=== PATIENT | male | born 1985 | race Caucasian/White ===

== ENCOUNTER 2019-02-21 10:59 | Emergency (ER) | payer MEDICARE ==
[~2019-02-21] VITALS: Ht 165.1 cm; Wt 62.8 kg
[~2019-02-21 10:59] MED LIST: ALPR.5T PO; CARV12.5 PO; CTLP20T PO; Sensipar PO; [UNRECOGNIZED DRUG - OTHER] PO
--- OUTSIDE RECORDS SUMMARY | 2019-02-21 11:05 | XMS REPORT | Continuity of Care Document ---
Author Author [facility] Organization [facility] Address Unknown Phone Unavailable Care Team Providers Care Medical Dosimetrist Name Role Phone NO, LOCAL PHYSICIAN PP Unavailable Insurance Providers Payer Name Policy Number Subscriber Name Relationship Unknown Shawn Palomino Advance Directives Directive Response Recorded Date Advance Directives N 08/02/13 6:59am Health Care Power of Actuarial Intern N 08/02/13 6:59am Organ Donor N 08/02/13 6:59am Problems No Known Problems or Medical conditions. Social History History Response Recorded Date/Time Alcohol Use Past History 08/02/13 6:59am Recreational Drug Use N denies 08/02/13 6 :59am Allergies, Adverse Reactions, Alerts Allergen Type Severity Reaction Last Updated Thymoglobulin Adverse Reaction Severe low B/P and bradycardia 08/02/13 Medications Medication Dose Units Route Sig Qty Days Alprazolam (Xanax) 1 Tab PO TID PRN Citalopram Hydrobromide (Celexa) 1 Each PO DAILY [Sensipar] 30 Mg PO DAILY [Phosio] 4 Tab PO AC Carvedilol (Coreg Tablet) 12.5 Mg PO BID Response Recorded Date/Time Status not known Unknown Results No Known Relevant Diagnostic Tests, Laboratory Data and/or Discharge Summary. Encounters Encounter Location Date/Time Registered Emergency Room [facility] 08/02/13 7:10am
--- OUTSIDE RECORDS SUMMARY | 2019-02-21 11:05 | XMS REPORT | Continuity of Care Document ---
Author Organization Unknown Address Unknown Allergies There is no data. Medications There is no data. Problems There is no data. Procedures There is no data. Results There is no data. Encounters ACCT No. Visit Date/Time Discharge Status Pt. Type Provider Facility Loc./Unit Complaint [id number] 02/20/2019 13:40:00 ACT Outpatient [facility] [id number] 08/02/2013 07:10:00 08/02/2013 10:26:00 DIS Emergency
[2019-02-21] MEDS ORDERED: fentaNYL INJECTION 100 MCG/2 ML AMP IM STA (11:36)
[2019-02-21] MEDS ORDERED: cefTRIAXone 1,000 MG/2.86 ml vial (IM ONLY) IM ONE (11:45)
[2019-02-21] MEDS ORDERED: LIDOCAINE 1% INJ 20 ML 20 ML VIAL INJ ONE (11:45)
--- NOTE | 2019-02-21 12:01 | ED Integumentary General ---
General Chief Complaint: Skin/Wound Problems Stated Complaint: LT FOOT WOUND CHECK Nursing Triage Note: Got a tattoo on left foot last . Started having pain in foot on Monday and has worsened since then and thinks it is infected. Tattoo covers the dorsal foot and the toes. Ink is black and there is some surrounding redness to the tattoo. States he is taking percocets for pain and is not getting pain relief. Source: patient Exam Limitations: no limitations History of Present Illness Date Seen by Provider: Feb 21, 2019 Time Seen by Provider: 11:35 Initial Comments 33-year-old male presents with left foot pain. Patient reports that 6 days ago he got a tattoo on the top of his left foot. Reports that 2 days ago he started having pain in it and has noticed some swelling and redness. Patient thinks it might be infected. Patient is a dialysis patient and is scheduled to have repair on his dialysis shunt tomorrow. He reports he takes Percocet for pain but this is not helping. He denies any fever, chills or other systemic complaints at this time. Allergies and Home Medications Allergies Coded Allergies: sulfamethoxazole (Verified Allergy, Unknown, 02/21/19) trimethoprim (Verified Allergy, Unknown, 02/21/19) Uncoded Allergies: CLEAR EYES (Allergy, Unknown, eye burning, 02/21/19) Thymoglobulin (Adverse Reaction, Severe, low B/P and bradycardia, 08/02/13) Home Medications Alprazolam 0.5 Mg Tablet, 1 TAB PO TID PRN, (Reported) Carvedilol 12.5 Mg Tablet, 12.5 MG PO BID, (Reported) Cephalexin 500 Mg Tablet, 500 MG PO QID Prescribed by: DREW TYLER on 02/21/19 1327 Citalopram Hydrobromide 20 Mg Tablet, 1 EACH PO DAILY, (Reported) [Phosio] , 4 TAB PO AC, (Reported) [Sensipar] , 30 MG PO DAILY, (Reported) Patient Home Medication List Home Medication List Reviewed: Yes Review of Systems Review of Systems Constitutional: No chills, No fever EENTM: no symptoms reported Respiratory: no symptoms reported Cardiovascular: no symptoms reported Gastrointestinal: no symptoms reported Musculoskeletal: no symptoms reported Skin: see HPI Past Rstxpes-Gkuuup-Vtlaqj Hx Past Med/Social Hx: Reviewed Nursing Past Med/Soc Hx Patient Social History Recent Foreign Travel: No Contact w/Someone Who Travel: No Recent Infectious Disease Expo: No Past Medical History Renal Failure, Dialysis Parathyroid Disease Anxiety Physical Exam Vital Signs Vital Signs - First Documented 02/21/19 11:38 Temp 98.1 Pulse 104 Resp 16 B/P (MAP) 71/37 (48) Pulse Ox 92 Capillary Refill : Less Than 3 Seconds General Appearance: WD/WN, no apparent distress Cardiovascular: normal peripheral pulses, regular rate, rhythm Respiratory: chest non-tender, lungs clear Extremities: swelling (Left foot) Skin: other (Patient with a recent tattoo on his left foot. The tattoo is black and very difficult to see much skin over the left foot. There is some surrounding erythema around the tattoo. The foot does seem mildly swollen and is tender to palpation. Very limited exam based on the nature of the tattoo along with the recent tattoo skin changes.) Progress/Results/Core Measures Results/Orders Lab Results Laboratory Tests Test 02/21/19 12:10 Range/Units White Blood Count 9.5 4.3-11.0 10^3/uL Red Blood Count 4.08 L 4.35-5.85 10^6/uL Hemoglobin 14.2 13.3-17.7 G/DL Hematocrit 44 40-54 % Mean Corpuscular Volume 107 H 80-99 FL Mean Corpuscular Hemoglobin 35 H 25-34 PG Mean Corpuscular Hemoglobin Concent 32 32-36 G/DL Red Cell Distribution Width 16.1 H 10.0-14.5 % Platelet Count 149 130-400 10^3/uL Mean Platelet Volume 11.3 H 7.4-10.4 FL Neutrophils (%) (Auto) 81 H 42-75 % Lymphocytes (%) (Auto) 8 L 12-44 % Monocytes (%) (Auto) 9 0-12 % Eosinophils (%) (Auto) 1 0-10 % Basophils (%) (Auto) 0 0-10 % Neutrophils # (Auto) 7.7 1.8-7.8 X 10^3 Lymphocytes # (Auto) 0.8 L 1.0-4.0 X 10^3 Monocytes # (Auto) 0.9 0.0-1.0 X 10^3 Eosinophils # (Auto) 0.1 0.0-0.3 10^3/uL Basophils # (Auto) 0.0 0.0-0.1 10^3/uL Neutrophils % (Manual) 75 % Lymphocytes % (Manual) 11 % Monocytes % (Manual) 8 % Eosinophils % (Manual) 1 % Basophils % (Manual) 0 % Band Neutrophils 5 % Nucleated Red Blood Cells 1 Sodium Level 135 135-145 MMOL/L Potassium Level 5.1 H 3.6-5.0 MMOL/L Chloride Level 84 L 98-107 MMOL/L Carbon Dioxide Level 26 21-32 MMOL/L Anion Gap 25 H 5-14 MMOL/L Blood Urea Nitrogen 55 H 7-18 MG/DL Creatinine 12.60 H 0.60-1.30 MG/DL Estimat Glomerular Filtration Rate 5 BUN/Creatinine Ratio 4 Glucose Level 92 70-105 MG/DL Calcium Level 9.6 8.5-10.1 MG/DL My Orders Orders - TYLER,DREW L DO Basic Metabolic Panel (02/21/19 11:36) Cbc With Automated Diff (02/21/19 11:36) Blood Culture (02/21/19 11:36) Fentanyl Injection (Sublimaze Injection (02/21/19 11:36) Ceftriaxone For Im Use (Rocephin For Im (02/21/19 11:45) Lidocaine 1% Inj 20 Ml (Xylocaine 1% Inj (02/21/19 11:45) Foot 2 View Left (02/21/19 11:36) Manual Differential (02/21/19 12:10) Medications Given in ED Current Medications Medications Dose Ordered Sig/Ghada Route Start Time Stop Time Status Last Admin Dose Admin Ceftriaxone Sodium 1,000 mg ONCE ONCE IM 02/21/19 11:45 02/21/19 11:46 DC 02/21/19 13:01 1,000 MG Lidocaine HCl 2.1 ml ONCE ONCE INJ 02/21/19 11:45 02/21/19 11:46 DC 02/21/19 13:02 2.1 ML Vital Signs/I&O 02/21/19 02/21/19 11:38 13:46 Temp 98.1 Pulse 104 77 Resp 16 16 B/P (MAP) 71/37 (48) 75/37 (50) Pulse Ox 92 96 Blood Pressure Mean: 48 Progress Progress Note : Time: 13:25 Progress Note Review labs and x-ray with patient. Patient's creatinine is elevated but he is a dialysis patient and due for dialysis. He has a negative x-ray and negative white count. We will start him on Keflex outpatient. He should follow-up with his primary care physician for cellulitis. He should return if symptoms worsen. Departure Impression Primary Impression: Cellulitis Qualified Codes: L03.116 - Cellulitis of left lower limb Disposition: HOME, SELF-CARE Condition: Stable Departure-Patient Inst. Referrals: GABRIELA BOGGS MD (PCP/Family) Primary Care Physician Patient Instructions: Cellulitis (Skin Infection), Adult (DC) Scripts Cephalexin (Cephalexin) 500 Mg Tablet 500 MG PO QID for 10 Days, #20 TAB 0 Refills Prov: DREW TYLER DO 02/21/19 DREW TYLER DO Feb 21, 2019 12:00
[2019-02-21 12:25] LABS: HEMATOCRIT 44 % (40-54); HEMOGLOBIN 14.2 G/DL (13.3-17.7); MEAN CORPUSCULAR HEMOGLOBIN 35 PG (25-34); MEAN CORPUSCULAR VOLUME 107 FL (80-99); WHITE BLOOD COUNT 9.5 10^3/uL (4.3-11.0)
[2019-02-21 12:26] LABS: BASOPHILS % (AUTO) 0 % (0-10); EOSINOPHILS % (AUTO) 1 % (0-10); LYMPHOCYTES # (AUTO) 0.8 X 10^3 (1.0-4.0); LYMPHOCYTES % (AUTO) 8 % (12-44); MEAN CORPUSCULAR HGB CONC 32 G/DL (32-36); MEAN PLATELET VOLUME 11.3 FL (7.4-10.4); MONOCYTES # (AUTO) 0.9 X 10^3 (0.0-1.0); MONOCYTES % (AUTO) 9 % (0-12); NEUTROPHILS # (AUTO) 7.7 X 10^3 (1.8-7.8); NEUTROPHILS % (AUTO) 81 % (42-75); PLATELET COUNT 149 10^3/uL (130-400); RED CELL DISTRIBUTION WIDTH 16.1 % (10.0-14.5)
[2019-02-21 12:27] LABS: EOSINOPHILS # (AUTO) 0.1 10^3/uL (0.0-0.3)
--- NOTE | 2019-02-21 12:55 | Diagnostic Imaging Report ---
Indication: Infection. 2 views of the left foot were obtained. Findings: The alignment is normal. There is no fracture or dislocation. Soft tissues are unremarkable. There are extensive vascular calcifications for a patient of this age. There is no radiographic evidence of osteomyelitis. Impression: Extensive vascular calcifications for a patient of this age otherwise unremarkable. Dictated by: Dictated on workstation # [id number]
[2019-02-21 13:03] LABS: POTASSIUM 5.1 MMOL/L (3.6-5.0)
[2019-02-21 13:04] LABS: CALCIUM 9.6 MG/DL (8.5-10.1); CREATININE SERUM 12.6 MG/DL (0.60-1.30)
[2019-02-21] MEDS ORDERED: CEPH500T PO (13:27)
[2019-02-21 13:46] VITALS: BP 75/37
[2019-02-21 14:07] LABS: BAND NEUTROPHILS 5 %; BASOPHILS % (MANUAL) 0 %; EOSINOPHILS % (MANUAL) 1 %; LYMPHOCYTES % (MANUAL) 11 %; MONOCYTES % (MANUAL) 8 %; NEUTROPHILS % (MANUAL) 75 %; NUCLEATED RED BLOOD CELLS 1
== END 2019-02-21 13:48 | disposition home or self-care (01) ==
LOC: EDUNIT# 10:59 → ER FS 11:01
DX: L03.116 Cellulitis of left lower limb (principal); N18.6 End stage renal disease; F41.9 Anxiety disorder, unspecified; Z99.2 Dependence on renal dialysis; Z88.2 Allergy status to sulfonamides; Z88.8 Allergy status to other drugs, medicaments and biological substances
CPT/HCPCS: 36415; 73620; 80048; 85007; 85027; 87040

== ENCOUNTER 2019-02-22 16:45 | Emergency (ER) | payer MEDICARE ==
[~2019-02-22] VITALS: Ht 165.1 cm; Wt 69.9 kg
[~2019-02-22 16:45] MED LIST changes: +CEPH500T PO
--- OUTSIDE RECORDS SUMMARY | 2019-02-22 16:51 | XMS REPORT | Continuity of Care Document ---
Author Organization Unknown Address Unknown Allergies Active Description Code Type Severity Reaction Onset Reported/Identified Relationship to Patient Clinical Status Yes Thymoglobulin Thymoglobulin Severe low B/P and bra 08/02/2013 Yes CLEAR EYES CLEAR EYES Unknown eye burning 02/21/2019 Yes sulfamethoxazole [id number] Drug Allergy Unknown N/A 02/21/2019 Yes trimethoprim [id number] Drug Allergy Unknown N/A 02/21/2019 Medications There is no data. Problems There is no data. Procedures There is no data. Results Test Result Range Complete blood count (CBC) with automated white blood cell (WBC) differential - 02/21/19 12:10 Blood leukocytes automated count (number/volume) 9.5 10*3/uL 4.3-11.0 Blood erythrocytes automated count (number/volume) 4.08 10*6/uL 4.35-5.85 Venous blood hemoglobin measurement (mass/volume) 14.2 g/dL 13.3-17.7 Blood hematocrit (volume fraction) 44 % 40-54 Automated erythrocyte mean corpuscular volume 107 [foz_us] 80-99 Automated erythrocyte mean corpuscular hemoglobin (mass per erythrocyte) 35 pg 25-34 Automated erythrocyte mean corpuscular hemoglobin concentration measurement ( mass/volume) 32 g/dL 32-36 Automated erythrocyte distribution width ratio 16.1 % 10.0-14.5 Automated blood platelet count (count/volume) 149 10*3/uL 130-400 Automated blood platelet mean volume measurement 11.3 [foz_us] 7.4-10.4 Automated blood neutrophils/100 leukocytes 81 % 42-75 Automated blood lymphocytes/100 leukocytes 8 % 12-44 Blood monocytes/100 leukocytes 9 % 0-12 Automated blood eosinophils/100 leukocytes 1 % 0-10 Automated blood basophils/100 leukocytes 0 % 0-10 Blood neutrophils automated count (number/volume) 7.7 10*3 1.8-7.8 Blood lymphocytes automated count (number/volume) 0.8 10*3 1.0-4.0 Blood monocytes automated count (number/volume) 0.9 10*3 0.0-1.0 Automated eosinophil count 0.1 10*3/uL 0.0-0.3 Automated blood basophil count (count/volume) 0.0 10*3/uL 0.0-0.1 Whole blood basic metabolic panel - 02/21/19 12:10 Serum or plasma sodium measurement (moles/volume) 135 mmol/L 135-145 Serum or plasma potassium measurement (moles/volume) 5.1 mmol/L 3.6-5.0 Serum or plasma chloride measurement (moles/volume) 84 mmol/L 98-107 Carbon dioxide 26 mmol/L 21-32 Serum or plasma anion gap determination (moles/volume) 25 mmol/L 5-14 Serum or plasma urea nitrogen measurement (mass/volume) 55 mg/dL 7-18 Serum or plasma creatinine measurement (mass/volume) 12.60 mg/dL 0.60-1.30 Serum or plasma urea nitrogen/creatinine mass ratio 4 NRG Serum or plasma creatinine measurement with calculation of estimated glomerular filtration rate 5 NRG Serum or plasma glucose measurement (mass/volume) 92 mg/dL 70-105 Serum or plasma calcium measurement (mass/volume) 9.6 mg/dL 8.5-10.1 Blood manual differential performed detection - 02/21/19 12:10 Blood monocytes/100 leukocytes 8 % NRG Manual blood segmented neutrophils/100 leukocytes 75 % NRG Blood band neutrophils/100 leukocytes 5 % NRG Manual blood lymphocytes/100 leukocytes 11 % NRG Manual eosinophils/100 leukocytes in nose 1 % NRG Manual blood basophils/100 leukocytes 0 % NRG Manual blood nucleated erythrocytes/100 leukocytes ratio 1 NRG Bacterial blood culture - 02/21/19 12:10 Bacterial blood culture NG NRG Bacterial blood culture - 02/21/19 12:58 Bacterial blood culture NG NRG Encounters ACCT No. Visit Date/Time Discharge Status Pt. Type Provider Facility Loc./Unit Complaint [id number] 02/20/2019 13:40:00 ACT Outpatient [facility] [id number] 02/21/2019 11:01:00 02/21/2019 13:48:00 DIS Emergency DREW TYLER DO [facility] ER FS LT FOOT WOUND CHECK [id number] 08/02/2013 07:10:00 08/02/2013 10:26:00 DIS Emergency [id number] 02/22/2019 16:46:00 ACT Emergency REJI MAYER DO [facility] ER FS HYPOTENSION
--- NOTE | 2019-02-22 17:07 | ED Syncope ---
General Chief Complaint: Cardiac/General Problems Stated Complaint: HYPOTENSION Source of Information: Patient, EMS, Old Records, RN Notes Reviewed Exam Limitations: No Limitations (REJI DICKINSON DO) History of Present Illness Date Seen by Provider: Feb 22, 2019 Time Seen by Provider: 16:57 Initial Comments Patient brought in by EMS from local dialysis center p/ experience an apparent syncopal episode. Reportedly couldn't wake him up after being dialyzed. Noted to be hypotensive which apparently isn't new for him. Came to shortly p/ EMS arrival. Reportedly feels back to baseline. Apparently had less than a liter of fluid removed. Does have an infected tattoo on the dorsum of his left foot that he has taken 3 doses of Keflex for. States he was going to go to the ED in [place] p/ dialysis for evaluation of his tattoo infection. Timing/Prior Episodes: Single Episode Today Symptoms Prior to Episode: Unknown Precipitating Factors: Sitting Loss of Consciousness: Brief (Seconds) Current Symptoms: Back to Normal (REJI DICKINSON DO) Allergies and Home Medications Allergies Coded Allergies: sulfamethoxazole (Verified Allergy, Unknown, 02/21/19) trimethoprim (Verified Allergy, Unknown, 02/21/19) Uncoded Allergies: CLEAR EYES (Allergy, Unknown, eye burning, 02/21/19) Thymoglobulin (Adverse Reaction, Severe, low B/P and bradycardia, 08/02/13) Home Medications Alprazolam 0.5 Mg Tablet, 1 TAB PO TID PRN, (Reported) Carvedilol 12.5 Mg Tablet, 12.5 MG PO BID, (Reported) Cephalexin 500 Mg Tablet, 500 MG PO QID Prescribed by: DREW TYLER on 02/21/19 1327 Citalopram Hydrobromide 20 Mg Tablet, 1 EACH PO DAILY, (Reported) [Phosio] , 4 TAB PO AC, (Reported) [Sensipar] , 30 MG PO DAILY, (Reported) Patient Home Medication List Home Medication List Reviewed: Yes (MELVINA VALENCIA MD) Review of Systems Constitutional: see HPI Cardiovascular: see HPI, syncope Skin: see HPI, other (cellulitis left foot.) (REJI DICKINSON DO) All Other Systems Reviewed Negative Unless Noted: Yes (REJI DICKINSON DO) Past Erwvhfo-Afydna-Xfvqny Hx Patient Social History Former Smoker, Quit: Feb 11, 2011 2nd Hand Smoke Exposure: No Recent Foreign Travel: No Contact w/Someone Who Travel: No (REJI DICKINSON DO) Past Medical History Surgeries: Yes (Kidney Transplant removed after anti-rejection meds stopped) Respiratory: No Cardiac: Yes (Anemia of chronic dz) Neurological: No Renal Failure, Dialysis Gastrointestinal: No Musculoskeletal: No Endocrine: Yes Parathyroid Disease Cancer: No Psychosocial: Yes Anxiety Integumentary: No Blood Disorders: Yes (anemia of chronic disease) (REJI DICKINSON DO) Physical Exam Vital Signs Vital Signs - First Documented 02/22/19 17:00 Temp 96.9 Pulse 91 Resp 14 B/P (MAP) 80/36 (51) Pulse Ox 99 O2 Delivery Room Air (MELVINA VALENCIA MD) Vital Signs Capillary Refill : (REJI DICKINSON DO) Height, Weight, BMI Height: 5'5.00" Weight: 138lbs. 6.0oz. 62.453231xs; BMI Method:Stated General Appearance: No Apparent Distress, WD/WN, Thin HEENT: Normal ENT Inspection Cardiovascular: Regular Rate, Rhythm Respiratory: No Respiratory Distress Extremities: Inflammation (& erythema over dorsum of left foot c/w cellulitis over a new tattoo) Neurologic/Psychiatric: Alert, Oriented x3, No Motor/Sensory Deficits, Depressed Affect Cranial Nerves: Normal Speech Motor/Sensory: No Motor Deficit, No Sensory Deficit (REJI DICKINSON DO) Progress/Results/Core Measures Results/Orders Lab Results Laboratory Tests Test 02/22/19 17:18 Range/Units White Blood Count 6.1 4.3-11.0 10^3/uL Red Blood Count 3.71 L 4.35-5.85 10^6/uL Hemoglobin 13.1 L 13.3-17.7 G/DL Hematocrit 41 40-54 % Mean Corpuscular Volume 110 H 80-99 FL Mean Corpuscular Hemoglobin 35 H 25-34 PG Mean Corpuscular Hemoglobin Concent 32 32-36 G/DL Red Cell Distribution Width 16.0 H 10.0-14.5 % Platelet Count 153 130-400 10^3/uL Mean Platelet Volume 11.0 H 7.4-10.4 FL Neutrophils (%) (Auto) 90 H 42-75 % Lymphocytes (%) (Auto) 6 L 12-44 % Monocytes (%) (Auto) 3 0-12 % Eosinophils (%) (Auto) 1 0-10 % Basophils (%) (Auto) 0 0-10 % Neutrophils # (Auto) 5.5 1.8-7.8 X 10^3 Lymphocytes # (Auto) 0.4 L 1.0-4.0 X 10^3 Monocytes # (Auto) 0.2 0.0-1.0 X 10^3 Eosinophils # (Auto) 0.0 0.0-0.3 10^3/uL Basophils # (Auto) 0.0 0.0-0.1 10^3/uL Neutrophils % (Manual) 91 % Lymphocytes % (Manual) 3 % Monocytes % (Manual) 2 % Eosinophils % (Manual) 1 % Basophils % (Manual) 1 % Band Neutrophils 2 % Macrocytosis MARKED Blood Morphology Comment Sodium Level 135 135-145 MMOL/L Potassium Level 4.9 3.6-5.0 MMOL/L Chloride Level 89 L 98-107 MMOL/L Carbon Dioxide Level 19 L 21-32 MMOL/L Anion Gap 27 H 5-14 MMOL/L Blood Urea Nitrogen 55 H 7-18 MG/DL Creatinine 12.12 #H 0.60-1.30 MG/DL Estimat Glomerular Filtration Rate 5 BUN/Creatinine Ratio 5 Glucose Level 84 70-105 MG/DL Calcium Level 8.7 8.5-10.1 MG/DL Corrected Calcium 8.7 8.5-10.1 MG/DL Magnesium Level 2.8 H 1.8-2.4 MG/DL Total Bilirubin 0.4 0.1-1.0 MG/DL Aspartate Amino Transf (AST/SGOT) 20 5-34 U/L Alanine Aminotransferase (ALT/SGPT) 11 0-55 U/L Alkaline Phosphatase 98 40-136 U/L Troponin T 34 H <=15 NG/L Total Protein 7.4 6.4-8.2 GM/DL Albumin 4.0 3.2-4.5 GM/DL (MELVINA VALENCIA MD) My Orders Orders - MELVINA VALENCIA MD Hs C Reactive Protein (02/22/19 17:18) Fentanyl Injection (Sublimaze Injection (02/22/19 19:15) Aspirin Chewable Tablet (Baby Aspirin Ch (02/22/19 19:15) (MELVINA VALENCIA MD) Medications Given in ED Current Medications Medications Dose Ordered Sig/Ghada Route Start Time Stop Time Status Last Admin Dose Admin Aspirin 324 mg ONCE ONCE PO 02/22/19 19:15 02/22/19 19:16 DC 02/22/19 19:11 324 MG Fentanyl Citrate 25 mcg ONCE ONCE IVP 02/22/19 19:15 02/22/19 19:16 DC 02/22/19 19:11 25 MCG (MELVINA VALENCIA MD) Vital Signs/I&O 02/22/19 02/22/19 02/22/19 17:00 18:45 20:26 Temp 96.9 Pulse 91 80 Resp 14 18 B/P (MAP) 80/36 (51) 88/51 (63) 85/26 (45) Pulse Ox 99 98 O2 Delivery Room Air Room Air (MELVINA VALENCIA MD) Progress Progress Note #1: Time: 18:00 Progress Note I assumed care from Dr. Dickinson at shift change. With pt pressure up to his baseline of 86-90 systolic and only having a partial dialysis today will hold his fluid bolus at 250 mL. His WBC is normal but he does have a left shift. Chemistry is still pending. CXR is clear and read out as no acute process or infiltrate or effusion. Also since he had been stuck several times for blood and unable to draw lactic acid he had requested to wait on this rather than continued to get stuck more. With no fever and already being on antibiotics and responding to fluids to his baseline BP as well as no elevation of WBC will hold on continued attempts to draw blood for Lactic acid. Progress Note #2: Time: 18:40 Progress Note Patient updated about test result and that his Troponin T is elevated above normal which can go along with his renal failure. His WBC count is stable with a left shift consistent with his cellulitis to top of left foot from his recent tattoo that is 7 days old. He had Rocephin 1 gm yesterday and 3 doses of Cephalexin 500 mg since then. He has chronic renal failure with Cr of 12.2 and was unable to dialyze today due to his shunt clotting off again and being hypotensive. The 800 mL they took off they had to give back to him because of his hypotension to 70 systolic. Based on all of these things and the recommendation of his [employer] from dialysis unit to go to [facility], where he has previously been admitted, I will call to see if they have a bed and capability to take the patient. I left a message at [phone] on the nurse transfer line for [facility]. Pt did ask for something for pain in his foot so I agreed to give him a low dose of Fentanyl 25 mcg and to elevate his foot since he had his pressure up to his baseline of 88/35 Progress Note #3: Time: 19:17 Progress Note I called back to [facility] and reached nursing chemical plant operator supervisor, Eliana, and gave information for the patient to be able to reach the hospitalist. She stated she would have Melva Richi call me back and if she accepts the patient then they will arrange for transfer and a room. Progress Note #4: Time: 19:55 Progress Note Provider Melva Stoddard called back and accepted the patient for transfer for the cellulitis and hypotension. She will have the nurse chemical plant operator supervisor call with a room. (MELVINA VALENCIA MD) EKG : EKG Time: 17:40 Rate: 75 Rhythm: Normal Sinus Intervals: Normal ECG Comparisson: No Previous ECG Available ECG Impression: Normal (REJI DICKINSON DO) Diagnostic Imaging Diagonstic Imaging: Xray Plain Films/CT/US/NM/MRI: chest (nothing acute) (REJI DICKINSON DO) Comments NAME: TOBY PALOMINO [facility] REC#: [id number] PT STATUS: REG ER : 1985 PHYSICIAN: REJI DICKINSON DO ADMIT DATE: 02/22/19/ER FS Signed Date of Exam:02/22/19 CHEST 1 VIEW AP/PA ONLY INDICATION: Lethargic. COMPARISON: None. FINDINGS: Single view of the chest demonstrates clear lungs bilaterally. The heart is normal. There is no pneumothorax. Osseous structures are normal. IMPRESSION: Negative chest. Dictated by: Dictated on workstation # [id number] Dict: 02/22/191733 Trans: 02/22/191739 [id number] Interpreted by: MELI HERRERA Electronically signed by: MELI HERRERA 02/22/191739 Reviewed: Reviewed by Me (reviewed radiology report as well) (MELVINA VALENCIA MD) Departure Impression Primary Impression: Cellulitis of left foot Additional Impressions: Hypotension Qualified Codes: I95.3 - Hypotension of hemodialysis Troponin level elevated Chronic in-center hemodialysis status Disposition: 02 XFER SHT-TRM HOSP Condition: Stable Transfer Time Spoke to Accepting Phy: 19:55 Transfer Progress Notes 1954 I spoke with OC Stoddard at [facility] and she accepted the patient for transfer to manage his cellulitis and hypotension. He will likely need nephrology and surgery to help with his shunt and dialysis as well. Transfer Facility: [facility] Method of Transfer: EMS (MELVINA VALENCIA MD) Departure-Patient Inst. Referrals: GABRIELA BOGGS MD (PCP/Family) Primary Care Physician REJI DICKINSON DO Feb 22, 2019 17:07 MELVINA VALENCIA MD Feb 22, 2019 18:12
[2019-02-22] MEDS ORDERED: LACTATED RINGERS 1,000 ML IV SCH (17:15)
[2019-02-22 17:26] LABS: EOSINOPHILS % (AUTO) 1 % (0-10); HEMATOCRIT 41 % (40-54); HEMOGLOBIN 13.1 G/DL (13.3-17.7); LYMPHOCYTES % (AUTO) 6 % (12-44); MEAN CORPUSCULAR HEMOGLOBIN 35 PG (25-34); MEAN CORPUSCULAR HGB CONC 32 G/DL (32-36); MEAN CORPUSCULAR VOLUME 110 FL (80-99); MONOCYTES % (AUTO) 3 % (0-12); NEUTROPHILS % (AUTO) 90 % (42-75); PLATELET COUNT 153 10^3/uL (130-400); WHITE BLOOD COUNT 6.1 10^3/uL (4.3-11.0)
[2019-02-22 17:27] LABS: BASOPHILS % (AUTO) 0 % (0-10); LYMPHOCYTES # (AUTO) 0.4 X 10^3 (1.0-4.0); MONOCYTES # (AUTO) 0.2 X 10^3 (0.0-1.0); NEUTROPHILS # (AUTO) 5.5 X 10^3 (1.8-7.8)
--- NOTE | 2019-02-22 17:36 | Diagnostic Imaging Report ---
INDICATION: Lethargic. COMPARISON: None. FINDINGS: Single view of the chest demonstrates clear lungs bilaterally. The heart is normal. There is no pneumothorax. Osseous structures are normal. IMPRESSION: Negative chest. Dictated by: Dictated on workstation # [id number]
[2019-02-22 17:43] LABS: BAND NEUTROPHILS 2 %; BASOPHILS % (MANUAL) 1 %; EOSINOPHILS % (MANUAL) 1 %; LYMPHOCYTES % (MANUAL) 3 %; MONOCYTES % (MANUAL) 2 %; NEUTROPHILS % (MANUAL) 91 %
[2019-02-22 18:43] LABS: CALCIUM 8.7 MG/DL (8.5-10.1); CREATININE SERUM 12.12 MG/DL (0.60-1.30); POTASSIUM 4.9 MMOL/L (3.6-5.0)
[2019-02-22 18:44] LABS: BILIRUBIN,TOTAL 0.4 MG/DL (0.1-1.0); MAGNESIUM 2.8 MG/DL (1.8-2.4); TOTAL PROTEIN 7.4 GM/DL (6.4-8.2)
[2019-02-22 18:45] VITALS: BP 88/51
[2019-02-22] MEDS ORDERED: ASPIRIN 81 MG CHEW (CHILDREN'S ASA) PO ONE (19:15)
[2019-02-22] MEDS ORDERED: fentaNYL INJECTION 100 MCG/2 ML AMP IVP ONE (19:15)
--- NOTE | 2019-02-22 20:17 | NUR ---
Report given to Zoe PERERA at [facility].
[2019-02-22 20:26] VITALS: BP 85/26
--- NOTE | 2019-02-22 20:26 | NUR ---
[facility] leaves with patient
== END 2019-02-22 20:26 | disposition short-term general hospital (02) ==
LOC: EDUNIT# 16:45 → ER FS 16:46
DX: L03.116 Cellulitis of left lower limb (principal); I95.9 Hypotension, unspecified; R79.89 Other specified abnormal findings of blood chemistry; N18.6 End stage renal disease; D63.8 Anemia in other chronic diseases classified elsewhere; F41.9 Anxiety disorder, unspecified; Z99.2 Dependence on renal dialysis; Z88.2 Allergy status to sulfonamides; Z94.0 Kidney transplant status; Z88.8 Allergy status to other drugs, medicaments and biological substances; Z87.891 Personal history of nicotine dependence
CPT/HCPCS: 36415; 71045; 80053; 83735; 84484; 85007; 85027; 86141; 93041

== ENCOUNTER 2019-03-03 20:45 | Emergency (ER) | payer MEDICARE ==
[~2019-03-03] VITALS: Ht 165.1 cm; Wt 63.5 kg
--- NOTE | 2019-03-03 21:02 | ED Chest Pain ---
General Chief Complaint: Cardiac/General Problems Stated Complaint: CHEST PAIN/SOB/SYNCOPE Source: patient Exam Limitations: no limitations History of Present Illness Date Seen by Provider: Mar 03, 2019 Time Seen by Provider: 20:45 Initial Comments 33-year-old male with history of renal failure on hemodialysis presents with palpitations and chest pain all day. States he woke this morning with these symptoms. He does have some associated shortness of breath. He describes this chest pressure. Mild diaphoresis associated. He has felt weak today. States he was hospitalized for an infection of his left foot a week ago. 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 He has noted some darkening of his stools recently and has been taking naproxen for his foot pain. Allergies and Home Medications Allergies Coded Allergies: sulfamethoxazole (Verified Allergy, Unknown, 02/21/19) trimethoprim (Verified Allergy, Unknown, 02/21/19) Uncoded Allergies: CLEAR EYES (Allergy, Unknown, eye burning, 02/21/19) Thymoglobulin (Adverse Reaction, Severe, low B/P and bradycardia, 08/02/13) Home Medications Alprazolam 0.5 Mg Tablet, 1 TAB PO TID PRN, (Reported) Carvedilol 12.5 Mg Tablet, 12.5 MG PO BID, (Reported) Cephalexin 500 Mg Tablet, 500 MG PO QID Prescribed by: DREW TYLER on 02/21/19 1327 Citalopram Hydrobromide 20 Mg Tablet, 1 EACH PO DAILY, (Reported) [Phosio] , 4 TAB PO AC, (Reported) [Sensipar] , 30 MG PO DAILY, (Reported) Patient Home Medication List Home Medication List Reviewed: Yes Review of Systems Review of Systems Constitutional: see HPI, malaise, weakness EENTM: No Symptoms Reported Respiratory: SOA With Exertion Cardiovascular: See HPI, Chest Pain, Palpitations Gastrointestinal: See HPI, Constipated, Rectal Bleeding Genitourinary: See HPI Musculoskeletal: see HPI, joint pain (left foot) Skin: no symptoms reported Psychiatric/Neurological: No Symptoms Reported Endocrine: No Symptoms Reported Hematologic/Lymphatic: No Symptoms Reported Past Gavbcjp-Zyclxe-Wbolhj Hx Past Med/Social Hx: Reviewed Nursing Past Med/Soc Hx Patient Social History Former Smoker, Quit: Feb 11, 2011 2nd Hand Smoke Exposure: No Recent Foreign Travel: No Contact w/Someone Who Travel: No Recent Hopitalizations: No Seasonal Allergies Seasonal Allergies: No Past Medical History Surgeries: Yes (Kidney Transplant removed after anti-rejection meds stopped) Respiratory: No Cardiac: Yes (Anemia of chronic dz) Neurological: No Genitourinary: Yes Renal Failure, Dialysis Gastrointestinal: No Musculoskeletal: No Endocrine: Yes Parathyroid Disease HEENT: No Cancer: No Psychosocial: Yes Anxiety Integumentary: No Blood Disorders: Yes (anemia of chronic disease) Physical Exam Vital Signs Vital Signs - First Documented 03/03/19 20:58 Temp 97.4 Pulse 105 Resp 15 B/P (MAP) 87/33 (51) Pulse Ox 100 O2 Delivery Room Air Capillary Refill : Height, Weight, BMI Height: 5'5.00" Weight: 154lbs. 6.0oz. 69.075315xe; BMI Method:Stated General Appearance: Chronically ill, Other (pale) HEENT: PERRL/EOMI, TMs Normal, Normal ENT Inspection (multiple piercings), Pharynx Normal Neck: Full Range of Motion, Normal Inspection, Non Tender, Supple Respiratory: Chest Non Tender, Lungs Clear, No Accessory Muscle Use, No Respiratory Distress, Decreased Breath Sounds Cardiovascular: Regular Rate, Rhythm, No Edema, No Gallop, No JVD, No Murmur, Normal Peripheral Pulses, Tachycardia Gastrointestinal: Normal Bowel Sounds, No Organomegaly, No Pulsatile Mass, Non Tender, Soft, Other (multiple surgical scars.) Extremity: Normal Capillary Refill, Normal Inspection, Normal Range of Motion, No Calf Tenderness, No Pedal Edema Neurologic/Psychiatric: Alert, Oriented x3, No Motor/Sensory Deficits Skin: Normal Color, Pallor, Other (several scaly lesions noted throughout.) Lymphatic: No Adenopathy Critical Care Note Critical Care Total Time (minutes) 35 Progress Critical hemoglobin and monitored for complications. Progress/Results/Core Measures Results/Orders Lab Results Laboratory Tests Test 03/03/19 21:47 03/03/19 22:05 Range/Units White Blood Count 8.2 4.3-11.0 10^3/uL Red Blood Count 1.65 L 4.35-5.85 10^6/uL Hemoglobin 5.7 *L 13.3-17.7 G/DL Hematocrit 18 *L 40-54 % Mean Corpuscular Volume 109 H 80-99 FL Mean Corpuscular Hemoglobin 35 H 25-34 PG Mean Corpuscular Hemoglobin Concent 32 32-36 G/DL Red Cell Distribution Width 16.1 H 10.0-14.5 % Platelet Count 297 130-400 10^3/uL Mean Platelet Volume 11.0 H 7.4-10.4 FL Neutrophils (%) (Auto) 76 H 42-75 % Lymphocytes (%) (Auto) 18 12-44 % Monocytes (%) (Auto) 4 0-12 % Eosinophils (%) (Auto) 1 0-10 % Basophils (%) (Auto) 0 0-10 % Neutrophils # (Auto) 6.3 1.8-7.8 X 10^3 Lymphocytes # (Auto) 1.5 1.0-4.0 X 10^3 Monocytes # (Auto) 0.3 0.0-1.0 X 10^3 Eosinophils # (Auto) 0.1 0.0-0.3 10^3/uL Basophils # (Auto) 0.0 0.0-0.1 10^3/uL Prothrombin Time 43.8 H 12.2-14.7 SEC INR Comment 4.4 H 0.8-1.4 Activated Partial Thromboplast Time 57 H 24-35 SEC Stool Occult Blood Immunoassay POSITIVE H NEGATIVE My Orders Orders - ANNABEL MOROCHO MD Cbc With Automated Diff (03/03/19 20:55) Magnesium (03/03/19 20:55) Chest 1 View Ap/Pa Only (03/03/19 20:55) Ekg Tracing (03/03/19 20:55) Comprehensive Metabolic Panel (03/03/19 20:55) Myoglobin Serum (03/03/19 20:55) Protime With Inr (03/03/19 20:55) Partial Thromboplastin Time (03/03/19 20:55) O2 (03/03/19 20:55) Monitor-Rhythm Ecg Trace Only (03/03/19 20:55) Lipid Panel (03/04/19 06:00) Ed Iv/Invasive Line Start (03/03/19 20:55) Troponin T (03/03/19 20:55) Occult Blood Stool (03/03/19 22:06) Vital Signs/I&O 03/03/19 20:58 Temp 97.4 Pulse 105 Resp 15 B/P (MAP) 87/33 (51) Pulse Ox 100 O2 Delivery Room Air Progress Progress Note : Time: 21:01 Progress Note Patient with renal failure on hemodialysis with palpitations. His conjunctiva is extremely pale. IV line will be established, appropriate laboratory testing be performed and the continued on community health nurse staff. His systolic blood pressure is 87 however he is perfusing well and coherent. His O2 sat is 100%. He'll be closely monitored and further intervention performed as indicated. 2303 hemoglobin 5.7. Was 13.19 days ago. His INR is elevated at 4.4. There is a technical difficulty in getting his chemistry studies return. I called and discussed with Dr. Alegre at [facility] who recommended giving oral vitamin K and sending to the ER there. I discussed lack of IV access. Since patient is hemodynamically stable with agreed that wait till he gets there. If an emergent line needed started or an IO given that that could be accomplished. Initial ECG Impression Date: Mar 03, 2019 Initial ECG Impression Time: 20:55 Initial ECG Rhythm: S.Tach Initial ECG Intervals: Normal Initial ECG Impression: Normal Initial ECG Comparisson: No Previous ECG Available Comment Sinus tachycardia without acute changes noted. Consults : Consults Notes Discussed with Dr. Albright at [facility]. Accepts for transfer to the ER. Departure Impression Primary Impression: GI bleed Qualified Codes: K92.2 - Gastrointestinal hemorrhage, unspecified Additional Impressions: Prolonged INR Renal failure Lack of intravenous access Disposition: XFER SHT-TRM HOSP Condition: Stable Transfer Time Spoke to Accepting Phy: 23:50 Transfer Progress Notes Discussed the lab studies and patient's dramatic drop in hemoglobin in face of positive Hemoccult stool and recent normal hemoglobin. The patient remains hemodynamically stable. I discussed this with Dr. Puga. Rather than start a central line here, we'll transfer her there for their evaluation and central line placement if they are unable to establish a line. If there is an issue in route, an IO would be needed.*I discussed the risks of transfer with the patient who understands and agrees to these risks. Transfer Facility: [facility] Method of Transfer: EMS Departure-Patient Inst. Referrals: GABRIELA BOGGS MD (PCP/Family) Primary Care Physician ANNABEL MOROCHO MD Mar 03, 2019 21:02
--- NOTE | 2019-03-03 21:49 | NUR ---
attempted iv by 2 different Rn's, total of 6 attempts. lab here just for blood draw per Dr Leyva
[2019-03-03 21:58] LABS: WHITE BLOOD COUNT 8.2 10^3/uL (4.3-11.0)
[2019-03-03 21:59] LABS: HEMATOCRIT 18 % (40-54); HEMOGLOBIN 5.7 G/DL (13.3-17.7); MEAN CORPUSCULAR HEMOGLOBIN 35 PG (25-34); MEAN CORPUSCULAR HGB CONC 32 G/DL (32-36); MEAN CORPUSCULAR VOLUME 109 FL (80-99); RED CELL DISTRIBUTION WIDTH 16.1 % (10.0-14.5)
[2019-03-03 22:00] LABS: BASOPHILS % (AUTO) 0 % (0-10); EOSINOPHILS # (AUTO) 0.1 10^3/uL (0.0-0.3); EOSINOPHILS % (AUTO) 1 % (0-10); LYMPHOCYTES # (AUTO) 1.5 X 10^3 (1.0-4.0); LYMPHOCYTES % (AUTO) 18 % (12-44); MONOCYTES # (AUTO) 0.3 X 10^3 (0.0-1.0); MONOCYTES % (AUTO) 4 % (0-12); NEUTROPHILS # (AUTO) 6.3 X 10^3 (1.8-7.8); NEUTROPHILS % (AUTO) 76 % (42-75); PLATELET COUNT 297 10^3/uL (130-400)
[2019-03-03 22:08] LABS: INR 4.4 (0.8-1.4); PROTHROMBIN TIME PATIENT 43.8 SEC (12.2-14.7)
--- OUTSIDE RECORDS SUMMARY | 2019-03-03 22:21 | XMS REPORT | Continuity of Care Document ---
Author Organization Unknown Address Unknown Allergies Active Description Code Type Severity Reaction Onset Reported/Identified Relationship to Patient Clinical Status Yes Thymoglobulin Thymoglobulin Severe low B/P and bra 08/02/2013 Yes CLEAR EYES CLEAR EYES Unknown eye burning 02/21/2019 Yes sulfamethoxazole [id number] Drug Allergy Unknown N/A 02/21/2019 Yes trimethoprim [id number] Drug Allergy Unknown N/A 02/21/2019 Medications There is no data. Problems Date Dx Coded Attending Type Code Diagnosis Diagnosed By 02/21/2019 DREW TYLER DO Ot F41.9 ANXIETY DISORDER, UNSPECIFIED 02/21/2019 DREW TYLER DO Ot L03.116 CELLULITIS OF LEFT LOWER LIMB 02/21/2019 DREW TYLER DO Ot M79.672 PAIN IN LEFT FOOT 02/21/2019 JAYSON HERNANDEZ DREW L Ot N18.6 END STAGE RENAL DISEASE 02/21/2019 SERENA TYLER DOVOR L Ot Z88.2 ALLERGY STATUS TO SULFONAMIDES STATUS 02/21/2019 JAYSON HERNANDEZ DREW L Ot Z88.8 ALLERGY STATUS TO OTH DRUG/MEDS/BIOL SUB 02/21/2019 JAYSON HERNANDEZ DREW L Ot Z99.2 DEPENDENCE ON RENAL DIALYSIS 02/22/2019 MELVINA VALENCIA MD, Ot D63.8 ANEMIA IN OTHER CHRONIC DISEASES CLASSIF 02/22/2019 MELVINA VALENCIA MD, Ot F41.9 ANXIETY DISORDER, UNSPECIFIED 02/22/2019 MELVINA VALENCIA MD, Ot I95.9 HYPOTENSION, UNSPECIFIED 02/22/2019 MELVNIA VALENCIA MD, Ot L03.116 CELLULITIS OF LEFT LOWER LIMB 02/22/2019 MELVINA VALENCIA MD, Ot N18.6 END STAGE RENAL DISEASE 02/22/2019 MELVINA VALENCIA MD, Ot R55 SYNCOPE AND COLLAPSE 02/22/2019 MELVINA VALENCIA MD, Ot R79.89 OTHER SPECIFIED ABNORMAL FINDINGS OF BLO 02/22/2019 MELVINA VALENCIA MD, Ot Z87.891 PERSONAL HISTORY OF NICOTINE DEPENDENCE 02/22/2019 MELVINA VALENCIA MD, Ot Z88.2 ALLERGY STATUS TO SULFONAMIDES STATUS 02/22/2019 MELVINA VALENCIA MD Ot Z88.8 ALLERGY STATUS TO OTH DRUG/MEDS/BIOL SUB 02/22/2019 MELVINA VALENCIA MD, Ot Z94.0 KIDNEY TRANSPLANT STATUS 02/22/2019 MELVINA VALENCIA MD, Ot Z99.2 DEPENDENCE ON RENAL DIALYSIS 02/25/2019 TYLER DO, DREW L Ot F41.9 ANXIETY DISORDER, UNSPECIFIED 02/25/2019 TYLER DO, DREW L Ot L03.116 CELLULITIS OF LEFT LOWER LIMB 02/25/2019 TYLER DO, DREW L Ot M79.672 PAIN IN LEFT FOOT 02/25/2019 TYLER DO, DREW L Ot N18.6 END STAGE RENAL DISEASE 02/25/2019 TYLER DO, DREW L Ot Z88.2 ALLERGY STATUS TO SULFONAMIDES STATUS 02/25/2019 TYLER DO, DREW L Ot Z88.8 ALLERGY STATUS TO OTH DRUG/MEDS/BIOL SUB 02/25/2019 TYLER DO, DREW L Ot Z99.2 DEPENDENCE ON RENAL DIALYSIS Procedures There is no data. Results Test [...] 02/21/19 12:58 Bacterial blood culture NG NRG Complete blood count (CBC) with automated white blood cell (WBC) differential - 02/22/19 17:18 Blood leukocytes automated count (number/volume) 6.1 10*3/uL 4.3-11.0 Blood erythrocytes automated count (number/volume) 3.71 10*6/uL 4.35-5.85 Venous blood hemoglobin measurement (mass/volume) 13.1 g/dL 13.3-17.7 Blood hematocrit (volume fraction) 41 % 40-54 Automated erythrocyte mean corpuscular volume 110 [foz_us] 80-99 Automated erythrocyte mean corpuscular hemoglobin (mass per erythrocyte) 35 pg 25-34 Automated erythrocyte mean corpuscular hemoglobin concentration measurement ( mass/volume) 32 g/dL 32-36 Automated erythrocyte distribution width ratio 16.0 % 10.0-14.5 Automated blood platelet count (count/volume) 153 10*3/uL 130-400 Automated blood platelet mean volume measurement 11.0 [foz_us] 7.4-10.4 Automated blood neutrophils/100 leukocytes 90 % 42-75 Automated blood lymphocytes/100 leukocytes 6 % 12-44 Blood monocytes/100 leukocytes 3 % 0-12 Automated blood eosinophils/100 leukocytes 1 % 0-10 Automated blood basophils/100 leukocytes 0 % 0-10 Blood neutrophils automated count (number/volume) 5.5 10*3 1.8-7.8 Blood lymphocytes automated count (number/volume) 0.4 10*3 1.0-4.0 Blood monocytes automated count (number/volume) 0.2 10*3 0.0-1.0 Automated eosinophil count 0.0 10*3/uL 0.0-0.3 Automated blood basophil count (count/volume) 0.0 10*3/uL 0.0-0.1 Blood manual differential performed detection - 02/22/19 17:18 Blood monocytes/100 leukocytes 2 % NRG Manual blood segmented neutrophils/100 leukocytes 91 % NRG Blood band neutrophils/100 leukocytes 2 % NRG Manual blood lymphocytes/100 leukocytes 3 % NRG Manual eosinophils/100 leukocytes in nose 1 % NRG Manual blood basophils/100 leukocytes 1 % NRG Blood macrocytes detection by light microscopy MARKED NRG Comprehensive metabolic panel - 02/22/19 17:18 Serum or plasma sodium measurement (moles/volume) 135 mmol/L 135-145 Serum or plasma potassium measurement (moles/volume) 4.9 mmol/L 3.6-5.0 Serum or plasma chloride measurement (moles/volume) 89 mmol/L 98-107 Carbon dioxide 19 mmol/L 21-32 Serum or plasma anion gap determination (moles/volume) 27 mmol/L 5-14 Serum or plasma urea nitrogen measurement (mass/volume) 55 mg/dL 7-18 Serum or plasma creatinine measurement (mass/volume) 12.12 mg/dL 0.60-1.30 Serum or plasma urea nitrogen/creatinine mass ratio 5 NRG Serum or plasma creatinine measurement with calculation of estimated glomerular filtration rate 5 NRG Serum or plasma glucose measurement (mass/volume) 84 mg/dL 70-105 Serum or plasma calcium measurement (mass/volume) 8.7 mg/dL 8.5-10.1 Serum or plasma total bilirubin measurement (mass/volume) 0.4 mg/dL 0.1-1.0 Serum or plasma alkaline phosphatase measurement (enzymatic activity/volume) 98 U/L 40-136 Serum or plasma aspartate aminotransferase measurement (enzymatic activity/ volume) 20 U/L 5-34 Serum or plasma alanine aminotransferase measurement (enzymatic activity/volume ) 11 U/L 0-55 Serum or plasma protein measurement (mass/volume) 7.4 g/dL 6.4-8.2 Serum or plasma albumin measurement (mass/volume) 4.0 g/dL 3.2-4.5 CALCIUM CORRECTED 8.7 mg/dL 8.5-10.1 Magnesium - 02/22/19 17:18 Magnesium 2.8 mg/dL 1.8-2.4 TROPONIN T - 02/22/19 17:18 TROPONIN T 34 % <=15 Serum or plasma C reactive protein measurement (mass/volume) - 02/22/19 17:18 Serum or plasma C reactive protein measurement (mass/volume) 18.08 mg/dL 0.00-0.50 Encounters ACCT No. Visit Date/Time Discharge Status Pt. Type Provider Facility Loc./Unit Complaint [id number] 02/20/2019 13:40:00 02/20/2019 23:59:59 [facility] [id number] 02/22/2019 16:46:00 02/22/2019 20:26:00 DIS Emergency ERIK WALTER, MELVINA Cevallos [facility] ER FS HYPOTENSION [id number] 02/21/2019 11:01:00 02/21/2019 13:48:00 DIS Emergency DREW TYLER DO [facility] ER FS LT FOOT WOUND CHECK [id number] 08/02/2013 07:10:00 08/02/2013 10:26:00 DIS Emergency [id number] 03/03/2019 20:48:00 ACT Emergency ANNABEL MOROCHO MD [facility] ER FS CHEST PAIN/SOB/SYNCOPE
[2019-03-03 23:02] LABS: POTASSIUM 5.4 MMOL/L (3.6-5.0)
[2019-03-03 23:03] LABS: BILIRUBIN,TOTAL 0.2 MG/DL (0.1-1.0); CALCIUM 11.3 MG/DL (8.5-10.1); CREATININE SERUM 11.74 MG/DL (0.60-1.30); MAGNESIUM 4.7 MG/DL (1.8-2.4)
[2019-03-03 23:04] LABS: ALBUMIN 3.3 GM/DL (3.2-4.5); TOTAL PROTEIN 5.2 GM/DL (6.4-8.2)
[2019-03-03] MEDS ORDERED: VITAMIN K 1 MG/ML ORAL SOLN 1 ML SYRINGE PO ONE (23:15)
[2019-03-03 23:45] VITALS: BP 94/44
== END 2019-03-03 23:45 | disposition short-term general hospital (02) ==
LOC: EDUNIT# 20:45 → ER FS 20:48
DX: K92.2 Gastrointestinal hemorrhage, unspecified (principal); N18.6 End stage renal disease; D63.8 Anemia in other chronic diseases classified elsewhere; F41.9 Anxiety disorder, unspecified; Z94.0 Kidney transplant status; Z79.01 Long term (current) use of a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; Z88.2 Allergy status to sulfonamides; Z88.8 Allergy status to other drugs, medicaments and biological substances; Z99.2 Dependence on renal dialysis; Z87.891 Personal history of nicotine dependence
CPT/HCPCS: 36415; 80053; 82274; 83735; 83874; 84484; 85025; 85610; 85730; 93005

== ENCOUNTER 2019-05-29 09:26 | Emergency (ER) | payer MEDICARE ==
[~2019-05-29] VITALS: Ht 165.1 cm; Wt 65.8 kg
--- OUTSIDE RECORDS SUMMARY | 2019-05-29 09:34 | XMS REPORT ---
Author Author GABRIELA BOGGS Organization [facility] Address [address] [place] [address] Care Team Providers Care Medical Practice Manager Name Role Phone GABRIELA BOGGS Unavailable PROBLEMS Type Condition ICD9-CM Code GAJ81-XM Code Onset Dates Condition Status SNOMED Code Problem Pilonidal cyst L05.91 Jan, Active 98825316 Problem Acute blood loss anemia D62 Sep, Active 474435667 Problem Erectile dysfunction N52.9 Aug, Active 233216215 Problem Chronic pain syndrome G89.4 Feb, Active 738960102 Problem Orthostatic hypotension I95.1 Sep, Active 65009308 Problem Complication of arteriovenous dialysis fistula T82.9XXA Sep, Active Problem Elevated troponin I level R74.8 Sep, Active 084175802 Problem Solitary bone cyst of lower leg M85.469 09 Feb, 2014 Active 259707672 Problem S/P kidney transplant Z94.0 May, Active 972126103 Problem Patellofemoral syndrome M22.2X9 Feb, Active 529888543 Problem End stage renal disease N18.6 Active 48984230 Problem End-stage renal disease on hemodialysis N18.6 06 Sep, 2011 Active 14329991 Problem retirement (current) use of a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 Z79.01 Active 827124481 Problem Renal transplant failure and rejection T86.12 May, Active 16824361 Problem History of Coumadin therapy Z92.29 March, Active 828847288 Problem SIRS (systemic inflammatory response syndrome) R65.10 Sep, Active 040016056 Problem Cellulitis of left upper arm L03.114 Sep, Active [id number] Problem Plaque psoriasis L40.0 Active 557896702 ALLERGIES No Information ENCOUNTERS Encounter Location Date Diagnosis [facility] [address] [facility] [id number] [address] Jul, ANNAMARIA CODY [address] [address] Jun, ANNAMARIA CODY [address] [address] Apr, ANNAMARIA CODY [address] [address] Apr, ANNAMARIA CODY [address] [address] Apr, retirement (current) use of a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 Z79.01 [address] CODY [address] [address] Apr, retirement (current) use of a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 Z79.01 ANNAMARIA CODY [address] [place] [address] Apr, ANNAMARIA CODY [address] [address] Apr, retirement (current) use of a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 Z79.01 [facility] [address] [address] Apr, ANNAMARIA CODY [address] [address] March, ANNAMARIA CODY [address] [address] March, Plantar fasciitis of left foot M72.2 [facility] [address] [address] March, [facility] [address] [address] March, [facility] [address] [facility] [place] [place] [address] March, Otorrhea of left ear H92.12 [facility] [address] [address] March, ANNAMARIA CODY [address] [address] March, 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 [facility] [address] [address] March, ANNAMARIA CODY [address] [place] [address] March, [facility] [address] [facility] [id number], [place] [address] March, History of Coumadin therapy Z92.29 [facility] [address] [place] [address] Feb, [facility] [address] [place] [address] Feb, [facility] [address] [place] [address] Feb, 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 [facility] [address] [place] [address] Feb, 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 [facility] [address] [place] [address] Feb, 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 [facility] [address] [place] [address] Jan, [facility] [address] [facility] [id number], [place] [address] Jan, retirement (current) use of a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 Z79.01 [facility] [address] [place] [address] Jan, [facility] [address] [address] Jan, 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 [facility] [address] [facility] [id number] [address] Jan, 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 [facility] [address] [facility] [id number], [place] [address] Jan, retirement (current) use of a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 Z79.01 and End stage renal disease N18.6 [facility] [address] [address] Jan, retirement (current) use of a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 Z79.01 [facility] [address] [address] Dec, [address] [address] Dec, retirement (current) use of a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 Z79.01 [facility] [address] [address] Dec, End stage renal disease N18.6 [facility] [address], [place] [address] Nov, [facility] [address] [facility] [id number], [place] [address] Oct, [facility] [address] [facility] [id number], [place] [address] Oct, [facility] [address], [place] [address] Oct, [facility] [address], [place] [address] Sep, [facility] [address] [place] [id number], [place] [address] Sep, [facility] [address] [id number], [place] [address] Sep, [facility] [address] [id number], [place] [address] Sep, IMMUNIZATIONS No Known Immunizations SOCIAL HISTORY Never Assessed REASON FOR VISIT lab orders PLAN OF CARE VITAL SIGNS MEDICATIONS Unknown Medications RESULTS No Results PROCEDURES No Known procedures INSTRUCTIONS MEDICATIONS ADMINISTERED No Known Medications MEDICAL (GENERAL) HISTORY Type Description Date Medical History Kidney disease Medical History End stage renal disease Medical History Chronic pain syndrome Medical History Plaque psoriasis Medical History Erectile dysfunction Medical History Systemic inflammatory response syndrome (SIRS) of non-infectious origin without acute organ dysfunction Medical History Hypotension Surgical History Kidney Transplant 2006 Hospitalization History Kidney Issues
--- OUTSIDE RECORDS SUMMARY | 2019-05-29 09:35 | XMS REPORT | Continuity of Care Document ---
Author Organization Unknown Address Unknown Allergies Active Description Code Type Severity Reaction Onset Reported/Identified Relationship to Patient Clinical Status Yes Thymoglobulin Thymoglobulin Severe low B/P and bra 08/02/2013 Yes CLEAR EYES CLEAR EYES Unknown eye burning 02/21/2019 Yes sulfamethoxazole [id number] Drug Allergy Unknown N/A 02/21/2019 Yes trimethoprim [id number] Drug Allergy Unknown N/A 02/21/2019 Medications There [...] VALENCIA MD, Ot I95.9 HYPOTENSION, UNSPECIFIED 02/22/2019 MELVINA VALENCIA MD, Ot L03.116 CELLULITIS OF LEFT LOWER LIMB 02/22/2019 MELVINA VALENCIA MD, Ot N18.6 END STAGE RENAL DISEASE 02/22/2019 MELVINA VALENCIA MD, Ot R55 SYNCOPE AND COLLAPSE 02/22/2019 MELVINA VALENCIA MD, Ot R79.89 OTHER SPECIFIED ABNORMAL FINDINGS OF BLO 02/22/2019 MELVINA VALENCIA MD, Ot Z87.891 PERSONAL HISTORY OF NICOTINE DEPENDENCE 02/22/2019 MELVINA VALENCIA MD Ot Z88.2 ALLERGY STATUS TO SULFONAMIDES STATUS 02/22/2019 MELVINA VALENCIA MD Ot Z88.8 ALLERGY STATUS TO OTH DRUG/MEDS/BIOL SUB 02/22/2019 MELVINA VALENCIA MD Ot Z94.0 KIDNEY TRANSPLANT STATUS 02/22/2019 MELVINA VALENCIA MD Ot Z99.2 DEPENDENCE ON RENAL DIALYSIS 02/25/2019 [...] L Ot Z99.2 DEPENDENCE ON RENAL DIALYSIS 03/03/2019 ANNABEL MOROCHO MD Ot D63.8 ANEMIA IN OTHER CHRONIC DISEASES CLASSIF 03/03/2019 ANNABEL MOROCHO MD Ot F41.9 ANXIETY DISORDER, UNSPECIFIED 03/03/2019 ANNABEL MOROCHO MD Ot K92.2 GASTROINTESTINAL HEMORRHAGE, UNSPECIFIED 03/03/2019 ANNABEL MOROCHO MD Ot N18.6 END STAGE RENAL DISEASE 03/03/2019 ANNABEL MOROCHO MD Ot R07.9 CHEST PAIN, UNSPECIFIED 03/03/2019 ANNABEL MOROCHO MD Ot Z79.01 ALF (CURRENT) USE OF ANTICOAGULANT 03/03/2019 ANNABEL MOROCHO MD Ot Z87.891 PERSONAL HISTORY OF NICOTINE DEPENDENCE 03/03/2019 ANNABEL MOROCHO MD Ot Z88.2 ALLERGY STATUS TO SULFONAMIDES STATUS 03/03/2019 ANNABEL MOROCHO MD Ot Z88.8 ALLERGY STATUS TO OTH DRUG/MEDS/BIOL SUB 03/03/2019 ANNABEL MOROCHO MD Ot Z94.0 KIDNEY TRANSPLANT STATUS 03/03/2019 BAILEEANNABEL PIÑA MD, Ot Z99.2 DEPENDENCE ON RENAL DIALYSIS 03/06/2019 ANNABEL MOROCHO MD, Ot D63.8 ANEMIA IN OTHER CHRONIC DISEASES CLASSIF 03/06/2019 ANNABEL MOROCHO MD, Ot F41.9 ANXIETY DISORDER, UNSPECIFIED 03/06/2019 ANNABEL MOROCHO MD, Ot K92.2 GASTROINTESTINAL HEMORRHAGE, UNSPECIFIED 03/06/2019 ANNABEL MOROCHO MD, Ot N18.6 END STAGE RENAL DISEASE 03/06/2019 ANNABEL MOROCHO MD, Ot R07.9 CHEST PAIN, UNSPECIFIED 03/06/2019 ANNABEL MOROCHO MD, Ot Z79.01 ALF (CURRENT) USE OF ANTICOAGULANT 03/06/2019 ANNABEL MOROCHO MD, Ot Z87.891 PERSONAL HISTORY OF NICOTINE DEPENDENCE 03/06/2019 ANNABEL MOROCHO MD, Ot Z88.2 ALLERGY STATUS TO SULFONAMIDES STATUS 03/06/2019 ANNABEL MOROCHO MD, Ot Z88.8 ALLERGY STATUS TO OTH DRUG/MEDS/BIOL SUB 03/06/2019 ANNABEL MOROCHO MD, Ot Z94.0 KIDNEY TRANSPLANT STATUS 03/06/2019 ANNABEL MOROCHO MD, Ot Z99.2 DEPENDENCE ON RENAL DIALYSIS Procedures [...] Automated erythrocyte mean corpuscular hemoglobin concentration measurement (mass/volume) 32 g/dL 32-36 Automated erythrocyte distribution width ratio 16.1 % 10.0- 14.5 Automated blood platelet count (count/volume) 149 10*3/uL [...] Blood monocytes automated count (number/volume) 0.9 10*3 0.0- 1.0 Automated eosinophil count 0.1 10*3/uL 0.0-0.3 Automated [...] Automated erythrocyte mean corpuscular hemoglobin concentration measurement (mass/volume) 32 g/dL 32-36 Automated erythrocyte distribution width ratio 16.0 % 10.0- 14.5 Automated blood platelet count (count/volume) 153 10*3/uL [...] Blood monocytes automated count (number/volume) 0.2 10*3 0.0- 1.0 Automated eosinophil count 0.0 10*3/uL 0.0-0.3 Automated [...] Blood macrocytes detection by light microscopy MARKED NR Comprehensive metabolic panel - 02/22/19 17:18 Serum [...] Serum or plasma aspartate aminotransferase measurement (enzymatic activity/volume) 20 U/L 5-34 Serum or plasma alanine aminotransferase measurement (enzymatic activity/volume) 11 U/L 0-55 Serum or plasma protein [...] reactive protein measurement (mass/volume) 18.08 mg/dL 0.00-0.50 Complete blood count (CBC) with automated white blood cell (WBC) differential - 03/03/19 21:47 Blood leukocytes automated count (number/volume) 8.2 10*3/uL 4.3-11.0 Blood erythrocytes automated count (number/volume) 1.65 10*6/uL 4.35-5.85 Venous blood hemoglobin measurement (mass/volume) 5.7 g/dL 13.3-17.7 Blood hematocrit (volume fraction) 18 % 40-54 Automated erythrocyte mean corpuscular volume 109 [foz_us] 80-99 Automated erythrocyte mean corpuscular hemoglobin (mass per erythrocyte) 35 pg 25-34 Automated erythrocyte mean corpuscular hemoglobin concentration measurement (mass/volume) 32 g/dL 32-36 Automated erythrocyte distribution width ratio 16.1 % 10.0- 14.5 Automated blood platelet count (count/volume) 297 10*3/uL 130-400 Automated blood platelet mean volume measurement 11.0 [foz_us] 7.4-10.4 Automated blood neutrophils/100 leukocytes 76 % 42-75 Automated blood lymphocytes/100 leukocytes 18 % 12-44 Blood monocytes/100 leukocytes 4 % 0-12 Automated blood eosinophils/100 leukocytes 1 % 0-10 Automated blood basophils/100 leukocytes 0 % 0-10 Blood neutrophils automated count (number/volume) 6.3 10*3 1.8-7.8 Blood lymphocytes automated count (number/volume) 1.5 10*3 1.0-4.0 Blood monocytes automated count (number/volume) 0.3 10*3 0.0- 1.0 Automated eosinophil count 0.1 10*3/uL 0.0-0.3 Automated blood basophil count (count/volume) 0.0 10*3/uL 0.0-0.1 PT panel in platelet poor plasma by coagulation assay - 03/03/19 21:47 Prothrombin time (PT) in platelet poor plasma by coagulation assay 43.8 s 12.2-14.7 INR in platelet poor plasma or blood by coagulation assay 4.4 0.8-1.4 Activated partial thromboplastin time (aPTT) in platelet poor plasma bycoagulation assay - 03/03/19 21:47 Activated partial thromboplastin time (aPTT) in platelet poor plasma bycoagulation assay 57 s 24-35 Comprehensive metabolic panel - 03/03/19 21:47 Serum or plasma sodium measurement (moles/volume) 133 mmol/L 135-145 Serum or plasma potassium measurement (moles/volume) 5.4 mmol/L 3.6-5.0 Serum or plasma chloride measurement (moles/volume) 87 mmol/L 98-107 Carbon dioxide 24 mmol/L 21-32 Serum or plasma anion gap determination (moles/volume) 22 mmol/L 5-14 Serum or plasma urea nitrogen measurement (mass/volume) 134 mg/dL 7-18 Serum or plasma creatinine measurement (mass/volume) 11.74 mg/dL 0.60-1.30 Serum or plasma urea nitrogen/creatinine mass ratio 11 NRG Serum or plasma creatinine measurement with calculation of estimated glomerular filtration rate 5 NRG Serum or plasma glucose measurement (mass/volume) 109 mg/dL 70-105 Serum or plasma calcium measurement (mass/volume) 11.3 mg/dL 8.5-10.1 Serum or plasma total bilirubin measurement (mass/volume) 0.2 mg/dL 0.1-1.0 Serum or plasma alkaline phosphatase measurement (enzymatic activity/volume) 62 U/L 40-136 Serum or plasma aspartate aminotransferase measurement (enzymatic activity/volume) 12 U/L 5-34 Serum or plasma alanine aminotransferase measurement (enzymatic activity/volume) 10 U/L 0-55 Serum or plasma protein measurement (mass/volume) 5.2 g/dL 6.4-8.2 Serum or plasma albumin measurement (mass/volume) 3.3 g/dL 3.2-4.5 CALCIUM CORRECTED 11.9 mg/dL 8.5-10.1 Magnesium - 03/03/19 21:47 Magnesium 4.7 mg/dL 1.8-2.4 Myoglobin, serum - 03/03/19 21:47 Myoglobin, serum 103.7 ng/mL 10.0-92.0 TROPONIN T - 03/03/19 21:47 TROPONIN T 26 % <=15 Stool occult blood screen - 03/03/19 22:05 Stool gastrointestinal hemoglobin detection POSITIVE NEGATIVE PT/INR - 03/26/19 14:00 INR 1.7 NRG PT 16.8 sec 9.0-11.5 Encounters ACCT No. Visit Date/Time Discharge Status Pt. Type Provider Facility Loc./Unit Complaint [id number] 04/22/2019 15:00:00 04/22/2019 23:59:59 [facility] [id number] 03/26/2019 14:00:00 Document Registration [id number] 03/03/2019 20:48:00 03/03/2019 23:45:00 DIS Emergency ANNABEL MOROCHO MD Via [facility] ER FS CHEST PAIN/SOB/SYNCOPE [id number] 02/22/2019 16:46:00 02/22/2019 20:26:00 DIS Emergency MELVINA VALENCIA MD Via [facility] ER FS HYPOTENSION [id number] 02/21/2019 11:01:00 02/21/2019 13:48:00 DIS Emergency DREW TYLER DO Via [facility] ER FS LT FOOT WOUND CHECK [id number] 08/02/2013 07:10:00 08/02/2013 10:26:00 DIS Emergency
--- NOTE | 2019-05-29 09:45 | ED Abdominal Pain ---
General Chief Complaint: Abdominal/GI Problems Stated Complaint: ABD PAIN Nursing Triage Note: Patient c/o abdomial pain and dizziness. States that abdominal pain started last night around 8pm and has progessively gotten worse. He reports he had dialysis this morning and then was sent over to the emergency department for evaluation. He also c/o dizziness which he states he experiences sometimes after completing dialysis. Sepsis Screen: No Definite Risk Source of Information: Patient, Old Records, RN Notes Reviewed Exam Limitations: No Limitations History of Present Illness Date Seen by Provider: May 29, 2019 Time Seen by Provider: 09:45 Initial Comments Patient presents c/ c/o worsening abdominal pain since 20:00 last PM. Also dizzy/lightheaded, but just completed dialysis this AM, and it's not unusual p/. No known fever. Last BM yesterday. Doesn't make urine. (-) N/V/D. Timing/Duration: 12-24 Hours Severity/Quality: Moderate (05/22) Location: Generalized Abdomen Radiation: No Radiation Activities at Onset: None Modifying Factors: Improves With Other (none) Associated Symptoms: Denies Symptoms (x/ as noted.) Allergies and Home Medications Allergies Coded Allergies: sulfamethoxazole (Verified Allergy, Unknown, 02/21/19) trimethoprim (Verified Allergy, Unknown, 02/21/19) Uncoded Allergies: CLEAR EYES (Allergy, Unknown, eye burning, 02/21/19) Thymoglobulin (Adverse Reaction, Severe, low B/P and bradycardia, 08/02/13) Home Medications Alprazolam 0.5 Mg Tablet, 1 TAB PO TID PRN, (Reported) Carvedilol 12.5 Mg Tablet, 12.5 MG PO BID, (Reported) Cephalexin 500 Mg Tablet, 500 MG PO QID Prescribed by: DREW TYLER on 02/21/19 1327 Ciprofloxacin HCl 500 Mg Tablet, 500 MG PO BID Prescribed by: REJI MAYER on 05/29/19 1236 Citalopram Hydrobromide 20 Mg Tablet, 1 EACH PO DAILY, (Reported) Hydrocodone Bit/Acetaminophen 1 Ea Tablet, 1 EACH PO Q6H PRN for ABDOMINAL PAIN Prescribed by: REJI MAYER on 05/29/19 1236 [Phosio] , 4 TAB PO AC, (Reported) [Sensipar] , 30 MG PO DAILY, (Reported) Patient Home Medication List Home Medication List Reviewed: Yes Review of Systems Review of Systems Constitutional: see HPI, dizziness Gastrointestinal: See HPI, Abdominal Pain All Other Systems Reviewed Negative Unless Noted: Yes (Negative excepted noted.) Past [id number] Hx Patient Social History Alcohol Use: Denies Use Recreational Drug Use: No Smoking Status: Never a Smoker Former Smoker, Quit: Feb 11, 2011 2nd Hand Smoke Exposure: No Recent Foreign Travel: No Contact w/Someone Who Travel: No Recent Infectious Disease Expo: No Recent Hopitalizations: Yes Physical Abuse: No Sexual Abuse: No Mistreated: No Fear: No Seasonal Allergies Seasonal Allergies: No Past Medical History Surgeries: Yes (Paritoneal shut placement laparoscopic) Kidney Transplant Respiratory: No Cardiac: No Neurological: No Genitourinary: Yes Dialysis Gastrointestinal: No Musculoskeletal: No Endocrine: No Parathyroid Disease HEENT: No Cancer: No Psychosocial: No Anxiety Integumentary: Yes Psoriasis Blood Disorders: No Physical Exam Vital Signs Vital Signs - First Documented 05/29/19 09:29 Temp 97.1 Pulse 110 Resp 12 B/P (MAP) 65/43 (50) Pulse Ox 95 O2 Delivery Room Air Capillary Refill : Less Than 3 Seconds Height/Weight/BMI Height: 5'5.00" Weight: 145lbs. 6.0oz. 65.032733cy; BMI Method:Stated General Appearance: WD/WN, mild distress Respiratory: no respiratory distress Cardiovascular: tachycardia Gastrointestinal: guarding; No rebound; tenderness Rectal: deferred Neurologic/Psychiatric: no motor/sensory deficits, alert, oriented x 3, depressed affect Skin: warm/dry; No rash; tattoos/piercings Progress/Results/Core Measures Results/Orders Lab Results Laboratory Tests Test 05/29/19 09:40 05/29/19 10:15 Range/Units White Blood Count 9.7 4.3-11.0 10^3/uL Red Blood Count 5.15 4.35-5.85 10^6/uL Hemoglobin 16.6 13.3-17.7 G/DL Hematocrit 52 40-54 % Mean Corpuscular Volume 101 H 80-99 FL Mean Corpuscular Hemoglobin 32 25-34 PG Mean Corpuscular Hemoglobin Concent 32 32-36 G/DL Red Cell Distribution Width 16.3 H 10.0-14.5 % Platelet Count 191 130-400 10^3/uL Mean Platelet Volume 11.3 H 7.4-10.4 FL Neutrophils (%) (Auto) 84 H 42-75 % Lymphocytes (%) (Auto) 9 L 12-44 % Monocytes (%) (Auto) 5 0-12 % Eosinophils (%) (Auto) 1 0-10 % Basophils (%) (Auto) 0 0-10 % Neutrophils # (Auto) 8.2 H 1.8-7.8 X 10^3 Lymphocytes # (Auto) 0.9 L 1.0-4.0 X 10^3 Monocytes # (Auto) 0.5 0.0-1.0 X 10^3 Eosinophils # (Auto) 0.1 0.0-0.3 10^3/uL Basophils # (Auto) 0.0 0.0-0.1 10^3/uL Sodium Level 138 135-145 MMOL/L Potassium Level 5.8 H 3.6-5.0 MMOL/L Chloride Level 89 L 98-107 MMOL/L Carbon Dioxide Level 23 21-32 MMOL/L Anion Gap 26 H 5-14 MMOL/L Blood Urea Nitrogen 57 H 7-18 MG/DL Creatinine 10.06 H 0.60-1.30 MG/DL Estimat Glomerular Filtration Rate 6 BUN/Creatinine Ratio 6 Glucose Level 103 70-105 MG/DL Calcium Level 9.0 8.5-10.1 MG/DL Corrected Calcium 8.5-10.1 MG/DL Total Bilirubin 0.3 0.1-1.0 MG/DL Aspartate Amino Transf (AST/SGOT) 20 5-34 U/L Alanine Aminotransferase (ALT/SGPT) 17 0-55 U/L Alkaline Phosphatase 134 40-136 U/L Total Protein 8.9 H 6.4-8.2 GM/DL Albumin 5.3 H 3.2-4.5 GM/DL Lipase 41 8-78 U/L My Orders Orders - REJI MAYER DO Ed Iv/Invasive Line Start (05/29/19 09:46) Cbc With Automated Diff (05/29/19 09:46) Comprehensive Metabolic Panel (05/29/19 09:46) Lipase (05/29/19 09:46) Ns Iv 1000 Ml (Sodium Chloride 0.9%) (05/29/19 10:45) Fentanyl Injection (Sublimaze Injection (05/29/19 10:45) Ct Abdomen/Pelvis Wo (05/29/19 10:47) Dexamethasone Injection (Decadron Inject (05/29/19 12:45) Medications Given in ED Current Medications Medications Dose Ordered Sig/Ghada Route Start Time Stop Time Status Last Admin Dose Admin Dexamethasone Sodium Phosphate 10 mg ONCE ONCE IV 05/29/19 12:45 05/29/19 12:46 DC 05/29/19 12:50 10 MG Fentanyl Citrate 75 mcg ONCE ONCE IVP 05/29/19 10:45 05/29/19 10:46 DC 05/29/19 10:49 75 MCG Vital Signs/I&O 05/29/19 05/29/19 09:29 13:18 Temp 97.1 97.1 Pulse 110 84 Resp 12 18 B/P (MAP) 65/43 (50) 55/46 (49) Pulse Ox 95 97 O2 Delivery Room Air Room Air Blood Pressure Mean: 50 Progress Progress Note : Progress Note Pain improved p/ IVF's and pain medication. Diagnostic Imaging Diagonstic Imaging: CT Plain Films/CT/US/NM/MRI: abdomen, pelvis (ileus vs enteritis; no obsturction) Departure Impression Primary Impression: Abdominal pain Additional Impressions: Enteritis ESRD on dialysis Disposition: 01 HOME, SELF-CARE Condition: Stable Departure-Patient Inst. Decision time for Depature: 12:34 Referrals: GABRIELA BOGGS MD (PCP/Family) Primary Care Physician Patient Instructions: [id number] Scripts Hydrocodone Bit/Acetaminophen (LORTAB 7.5 MG TABLET) 1 Ea Tablet 1 EACH PO Q6H PRN for ABDOMINAL PAIN, #14 TAB 0 Refills Prov: REJI MAYER DO 05/29/19 Ciprofloxacin HCl (Ciprofloxacin HCl) 500 Mg Tablet 500 MG PO BID for 7 Days, #14 TAB 0 Refills Prov: REJI MAYER DO 05/29/19 REJI MAYER DO May 29, 2019 09:45
[2019-05-29 10:03] LABS: BASOPHILS % (AUTO) 0 % (0-10); EOSINOPHILS % (AUTO) 1 % (0-10); HEMATOCRIT 52 % (40-54); HEMOGLOBIN 16.6 G/DL (13.3-17.7); LYMPHOCYTES % (AUTO) 9 % (12-44); MEAN CORPUSCULAR HEMOGLOBIN 32 PG (25-34); MEAN CORPUSCULAR HGB CONC 32 G/DL (32-36); MEAN CORPUSCULAR VOLUME 101 FL (80-99); MEAN PLATELET VOLUME 11.3 FL (7.4-10.4); MONOCYTES % (AUTO) 5 % (0-12); NEUTROPHILS % (AUTO) 84 % (42-75); PLATELET COUNT 191 10^3/uL (130-400); RED CELL DISTRIBUTION WIDTH 16.3 % (10.0-14.5); WHITE BLOOD COUNT 9.7 10^3/uL (4.3-11.0)
[2019-05-29 10:04] LABS: EOSINOPHILS # (AUTO) 0.1 10^3/uL (0.0-0.3); LYMPHOCYTES # (AUTO) 0.9 X 10^3 (1.0-4.0); MONOCYTES # (AUTO) 0.5 X 10^3 (0.0-1.0); NEUTROPHILS # (AUTO) 8.2 X 10^3 (1.8-7.8)
[2019-05-29 10:44] LABS: BUN/CREATININE RATIO 6; CARBON DIOXIDE 23 MMOL/L (21-32); CHLORIDE 89 MMOL/L (98-107); CREATININE SERUM 10.06 MG/DL (0.60-1.30); GFR ESTIMATED 6; POTASSIUM 5.8 MMOL/L (3.6-5.0); SODIUM 138 MMOL/L (135-145)
[2019-05-29 10:45] LABS: ALANINE AMINOTRANSFERASE 17 U/L (0-55); ALBUMIN 5.3 GM/DL (3.2-4.5); ALKALINE PHOSPHATASE 134 U/L (40-136); BILIRUBIN,TOTAL 0.3 MG/DL (0.1-1.0); GLUCOSE 103 MG/DL (70-105); LIPASE 41 U/L (8-78); TOTAL PROTEIN 8.9 GM/DL (6.4-8.2)
[2019-05-29] MEDS ORDERED: NS IV 1000 ML 1,000 ML IV SCH (10:45)
[2019-05-29] MEDS ORDERED: fentaNYL INJECTION 100 MCG/2 ML AMP IVP ONE (10:45)
--- NOTE | 2019-05-29 12:18 | Diagnostic Imaging Report ---
PROCEDURE: CT abdomen and pelvis without contrast. TECHNIQUE: Multiple contiguous axial images were obtained through the abdomen and pelvis without the use of intravenous contrast. Auto Exposure Controls were utilized during the CT exam to meet ALARA standards for radiation dose reduction. INDICATION: Abdominal pain with dizziness. FINDINGS: There are numerous calcifications in the pulmonary [place] as well as within subcarinal lymph nodes and the visualized portions of both lung bases. These are associated with calcifications also noted in the spleen and liver and are suggestive of previous granulomatous exposure. In addition, there is evidence of premature coronary artery calcification. No additional hepatic, gallbladder, pancreatic, adrenal gland or splenic lesion is identified. There is marked bilateral renal atrophy with mild to moderate aortoiliac atherosclerotic calcification. There is mild fluid distention and mild diffuse dilatation of small bowel loops without focal transition point identified. The urinary bladder is decompressed and displaced anteriorly which may be sequela of oliguria and absent [place] renal function. There is diffuse osteosclerosis. In addition, there is linear density likely representing calcification in the dorsal aspect of the upper thoracic dura mater. AP dimension of spinal canal is at the lower limits and may be related to congenitally short pedicles. There is no free fluid within the abdomen or pelvis. There is no evidence of appendiceal inflammation. No organized fluid collection is seen to indicate an obstruction. Note is made of dense calcification anterior to the left psoas muscle which may be the sequela of previous surgery. IMPRESSION: Mild diffuse dilatation of small bowel loops with fluid distention possibly related to ileus or enteritis. No obstruction or focal inflammation is identified. Note is made of premature coronary artery calcification which may be secondary to renal function and secondary hyperparathyroidism and hypercalcemia. There is diffuse osteosclerosis likely related to renal osteodystrophy with dorsal dural calcification which is nonspecific. This may also be secondary to hypercalcemia or previous meningitis. Dictated by: Dictated on workstation # [id number]
[2019-05-29] MEDS ORDERED: CIPR500T4 PO (12:36)
[2019-05-29] MEDS ORDERED: HYDR-34 PO (12:36)
[2019-05-29] MEDS ORDERED: DEXAMETHASONE 10 MG/ML (DECADRON) 1 ML VIAL IV ONE (12:45)
[2019-05-29 13:18] VITALS: BP 55/46
== END 2019-05-29 13:18 | disposition home or self-care (01) ==
LOC: EDUNIT# 09:26 → ER FS 09:30
DX: K52.9 Noninfective gastroenteritis and colitis, unspecified (principal); N18.6 End stage renal disease; E21.5 Disorder of parathyroid gland, unspecified; F41.9 Anxiety disorder, unspecified; Z99.2 Dependence on renal dialysis; Z88.2 Allergy status to sulfonamides; Z88.1 Allergy status to other antibiotic agents; Z88.8 Allergy status to other drugs, medicaments and biological substances; Z87.891 Personal history of nicotine dependence; Z94.0 Kidney transplant status
CPT/HCPCS: 36415; 74176; 80053; 83690; 85025; 96374; 96375

== ENCOUNTER 2019-08-07 19:07 | Emergency (ER) | payer MEDICARE ==
[~2019-08-07] VITALS: Ht 172.7 cm; Wt 67.0 kg
[~2019-08-07 19:07] MED LIST changes: +CIPR500T4 PO; +HYDR-34 PO
[2019-08-07] MEDS ORDERED: NS IV 500 ML 500 ML IV ONE (19:25)
--- NOTE | 2019-08-07 19:26 | ED Fall/Injury ---
General Chief Complaint: Abdominal/GI Problems Stated Complaint: LT ANKLE INJ Source: patient, spouse Exam Limitations: no limitations History of Present Illness Date Seen by Provider: Aug 07, 2019 Time Seen by Provider: 19:20 Initial Comments Patient presents to ER by private conveyance with chief complaint he is had dialysis today and then going home he caught his toe his sandal on the door stoop and fell forward twisting his ankle. He denies striking his head. He says he has brownouts that predispose him to falls frequently for the past 5 years since he's been on dialysis and attributes them to soft blood pressure after that take off too much fluid from his dialysis. He takes dialysis on Monday. He has not taken anything yet for pain. He is not having any nausea. He is known to Dr. Boggs the fall happened about 45 minutes to an hour ago. He was witnessed by his . He is able to walk with minimal weightbearing using a cane. Allergies and Home Medications Allergies Coded Allergies: sulfamethoxazole (Verified Allergy, Unknown, 02/21/19) trimethoprim (Verified Allergy, Unknown, 02/21/19) Uncoded Allergies: CLEAR EYES (Allergy, Unknown, eye burning, 02/21/19) Thymoglobulin (Adverse Reaction, Severe, low B/P and bradycardia, 08/02/13) Home Medications Alprazolam 0.5 Mg Tablet, 1 TAB PO TID PRN, (Reported) Carvedilol 12.5 Mg Tablet, 12.5 MG PO BID, (Reported) Cephalexin 500 Mg Tablet, 500 MG PO QID Prescribed by: DREW TYLER on 02/21/19 1327 Ciprofloxacin HCl 500 Mg Tablet, 500 MG PO BID Prescribed by: REJI MAYER on 05/29/19 1236 Citalopram Hydrobromide 20 Mg Tablet, 1 EACH PO DAILY, (Reported) Hydrocodone Bit/Acetaminophen 1 Ea Tablet, 1 EACH PO Q6H PRN for ABDOMINAL PAIN Prescribed by: REJI MAYER on 05/29/19 1236 [Phosio] , 4 TAB PO AC, (Reported) [Sensipar] , 30 MG PO DAILY, (Reported) Patient Home Medication List Home Medication List Reviewed: Yes Review of Systems Review of Systems Constitutional: No chills, No diaphoresis Eyes: Denies Blindness, Denies Blurred Vision Ears, Nose, Mouth, Throat: denies ear pain, denies ear discharge Respiratory: No cough, No short of breath Cardiovascular: No chest pain, No edema Gastrointestinal: No abdominal pain, No constipation Genitourinary: No discharge, No dysuria Musculoskeletal: No back pain, No joint pain Skin: No pruritus, No rash Past Zrdpivk-Yfwnnq-Klplfr Hx Patient Social History Alcohol Use: Denies Use Recreational Drug Use: No Former Smoker, Quit: Feb 11, 2011 2nd Hand Smoke Exposure: No Recent Foreign Travel: No Contact w/Someone Who Travel: No Recent Hopitalizations: Yes Physical Abuse: No Sexual Abuse: No Mistreated: No Fear: No Seasonal Allergies Seasonal Allergies: No Past Medical History Surgeries: Yes (Paritoneal shut placement laparoscopic) Kidney Transplant Respiratory: No Cardiac: No Neurological: No Genitourinary: Yes Dialysis Gastrointestinal: No Musculoskeletal: No Endocrine: No Parathyroid Disease HEENT: No Cancer: No Psychosocial: No Anxiety Integumentary: Yes Psoriasis Blood Disorders: No Physical Exam Vital Signs Vital Signs - First Documented 08/07/19 19:24 Temp 36.3 Pulse 70 Resp 18 B/P (MAP) 116/98 (104) Pulse Ox 92 O2 Delivery Room Air Capillary Refill : Height, Weight, BMI Height: 5'5.00" Weight: 145lbs. 6.0oz. [id number]; BMI Method:Stated General Appearance: mild distress, other (chronically ill) HEENT: PERRL/EOMI; No pharynx normal (oropharynx is mildly dry) Neck: full range of motion, normal inspection Cardiovascular: normal peripheral pulses, regular rate, rhythm Respiratory: no respiratory distress, no accessory muscle use Extremities: other (left knee has an abrasion on the anterior tibial plateau but no tenderness of the bone or loss of range of motion. He does have tenderness in his posterior lateral malleolus of the ankle as well as the dorsum of his foot. There is a small abrasion that is hemostatic on the top of his foot as well.) Neurologic/Psychiatric: no motor/sensory deficits, alert, oriented x 3 Rockledge Coma Score Best Eye Response: (4) Open Spontaneously Best Verbal Response: (5) Oriented Best Motor Response: (6) Obeys Commands Erick Total: 15 Progress/Results/Core Measures Results/Orders My Orders Orders - SELENA TROY Ed Iv/Invasive Line Start (08/07/19 19:25) Ns Iv 500 Ml (Sodium Chloride 0.9%) (08/07/19 19:25) Fentanyl Injection (Sublimaze Injection (08/07/19 19:30) Foot 3 View Left (08/07/19 19:25) Ankle 3 View Left (08/07/19 19:25) Medications Given in ED Current Medications Medications Dose Ordered Sig/Ghada Route Start Time Stop Time Status Last Admin Dose Admin Fentanyl Citrate 50 mcg ONCE ONCE IVP 08/07/19 19:30 08/07/19 19:31 DC 08/07/19 19:42 50 MCG Sodium Chloride 500 ml @ 0 mls/hr Q0M ONCE IV 08/07/19 19:25 08/07/19 19:27 DC 08/07/19 19:42 999 MLS/HR Vital Signs/I&O 08/07/19 19:24 Temp 36.3 Pulse 70 Resp 18 B/P (MAP) 116/98 (104) Pulse Ox 92 O2 Delivery Room Air Progress Progress Note : Time: 19:40 Progress Note Offered Tylenol for pain but patient says he used Percocet several times a day and Tylenol does not help. We'll put him with an ice pack and some fentanyl give him a half a liter fluids to help prevent his chronic syncopal episodes. We have offered her more in depth workup but he's declined at this time. He says this is been happening for years. He's more curious whether or not his broken his ankle. We will obtain x-rays of the foot and ankle based on the [place] rules. If there is no fracture plan to put him in an air splint with the option of crutches versus his cane. Diagnostic Imaging Diagonstic Imaging: Xray Plain Films/CT/US/NM/MRI: ankle (left) Comments Nondisplaced nonarticular fracture of the distal head of the fibula, closed. NAME: TOBY PALOMINO [facility] REC#: [id number] PT STATUS: REG ER : 1985 PHYSICIAN: SELENA TROY MD ADMIT DATE: 08/07/19/ER FS Signed Date of Exam:08/07/19 ANKLE 3 VIEW LEFT INDICATION: Ankle injury. COMPARISON: None. FINDINGS: Three views of the left ankle demonstrate nondisplaced fracture of the distal fibula. There is overlying soft tissue swelling. The ankle mortise is intact. No foreign body seen. Atherosclerosis is noted. IMPRESSION: 1. Distal fibula fracture. 2. Atherosclerosis. Dictated by: Dictated on workstation # [id number] Dict: 08/07/191939 Trans: 08/07/191944 [id number] Interpreted by: MELI HERRERA Electronically signed by: MELI HERRERA 08/07/191944 Reviewed: Reviewed by Me Diagonstic Imaging: Xray Plain Films/CT/US/NM/MRI: other (left foot) Comments No acute osseous abnormality noted. NAME: TOBY PALOMINO [facility] REC#: [id number] PT STATUS: REG ER : 1985 PHYSICIAN: SELENA TROY MD ADMIT DATE: 08/07/19/ER FS Signed Date of Exam:08/07/19 FOOT 3 VIEW LEFT INDICATION: Left foot injury COMPARISON: None FINDINGS: 3 views of the left foot demonstrate no fracture or dislocation of the foot. Articular surfaces are age-appropriate. Atherosclerosis is seen. There is no radiopaque foreign body. IMPRESSION: Atherosclerosis without additional injury of the foot Dictated by: Dictated on workstation # [id number] Dict: 08/07/191940 Trans: 08/07/191949 [facility] [id number] Interpreted by: MELI HERRERA Electronically signed by: MELI HERRERA 08/07/191949 Reviewed: Reviewed by Me Departure Impression Primary Impression: Fall Qualified Codes: W19.XXXA - Unspecified fall, initial encounter Additional Impressions: Syncope due to orthostatic hypotension Fracture of head of left fibula Qualified Codes: S82.832A - Other fracture of upper and lower end of left fibula, initial encounter for closed fracture Disposition: 01 HOME, SELF-CARE Condition: Stable Departure-Patient Inst. Decision time for Depature: 20:00 Referrals: GABRIELA BOGGS MD (PCP/Family) Primary Care Physician ARLEN CAMILO MD Patient Instructions: Ankle Fracture (DC) Add. Discharge Instructions: Air splint and crutches with toe-touch weightbearing until you see a doctor. You may follow-up later this week or early next week either with primary care or with the orthopedic surgeon Dr. Camilo. You may call his office tomorrow morning and request an appointment. Use her Percocet as prescribed for pain relief. Elevate the foot above the level of your heart while resting it and keep a Preston bandage wrap for some gentle compression on it. All discharge instructions reviewed with patient and/or family. Voiced understan alberto. Copy Copies To 1: GABRIELA BOGGS MD; ARLEN CAMILO MD, TITUS J Aug 07, 2019 19:26
[2019-08-07] MEDS ORDERED: fentaNYL INJECTION 100 MCG/2 ML AMP IVP ONE ×2 (19:30→20:15)
--- NOTE | 2019-08-07 19:45 | Diagnostic Imaging Report ---
INDICATION: Left foot injury COMPARISON: None FINDINGS: 3 views of the left foot demonstrate no fracture or dislocation of the foot. Articular surfaces are age-appropriate. Atherosclerosis is seen. There is no radiopaque foreign body. IMPRESSION: Atherosclerosis without additional injury of the foot Dictated by: Dictated on workstation # [id number]
--- NOTE | 2019-08-07 19:45 | Diagnostic Imaging Report ---
INDICATION: Ankle injury. COMPARISON: None. FINDINGS: Three views of the left ankle demonstrate nondisplaced fracture of the distal fibula. There is overlying soft tissue swelling. The ankle mortise is intact. No foreign body seen. Atherosclerosis is noted. IMPRESSION: 1. Distal fibula fracture. 2. Atherosclerosis. Dictated by: Dictated on workstation # [id number]
[2019-08-07 20:23] VITALS: BP 72/43
== END 2019-08-07 20:23 | disposition home or self-care (01) ==
LOC: EDUNIT# 19:07 → ER FS 19:08
DX: S82.832A Other fracture of upper and lower end of left fibula, initial encounter for closed fracture (principal); I95.1 Orthostatic hypotension; F41.9 Anxiety disorder, unspecified; Z87.891 Personal history of nicotine dependence; Z94.0 Kidney transplant status; Z99.2 Dependence on renal dialysis; Z88.2 Allergy status to sulfonamides; Z86.39 Personal history of other endocrine, nutritional and metabolic disease; Z88.1 Allergy status to other antibiotic agents; Z88.8 Allergy status to other drugs, medicaments and biological substances; W01.0XXA Fall on same level from slipping, tripping and stumbling without subsequent striking against object, initial encounter; X50.1XXA Overexertion from prolonged static or awkward postures, initial encounter
CPT/HCPCS: 73610; 73630

== ENCOUNTER 2019-08-09 09:09 | Emergency (ER) | payer MEDICARE ==
[~2019-08-09] VITALS: Ht 165 cm; Wt 52.0 kg
[2019-08-09 10:01] LABS: HEMATOCRIT 49 % (40-54); HEMOGLOBIN 15.5 G/DL (13.3-17.7); MEAN CORPUSCULAR HEMOGLOBIN 34 PG (25-34); MEAN CORPUSCULAR HGB CONC 32 G/DL (32-36); MEAN CORPUSCULAR VOLUME 108 FL (80-99); NEUTROPHILS % (AUTO) 88 % (42-75); PLATELET COUNT 167 10^3/uL (130-400); RED CELL DISTRIBUTION WIDTH 15.6 % (10.0-14.5); WHITE BLOOD COUNT 10.9 10^3/uL (4.3-11.0)
[2019-08-09 10:02] LABS: BASOPHILS % (AUTO) 0 % (0-10); EOSINOPHILS # (AUTO) 0.1 10^3/uL (0.0-0.3); EOSINOPHILS % (AUTO) 1 % (0-10); LYMPHOCYTES % (AUTO) 9 % (12-44); MONOCYTES # (AUTO) 0.2 X 10^3 (0.0-1.0); MONOCYTES % (AUTO) 2 % (0-12); NEUTROPHILS # (AUTO) 9.5 X 10^3 (1.8-7.8)
[2019-08-09 10:07] LABS: INR 1.4 (0.8-1.4); PROTHROMBIN TIME PATIENT 17.7 SEC (12.2-14.7)
--- NOTE | 2019-08-09 10:08 | Diagnostic Imaging Report ---
Indication: Hypotension and syncope. Single AP view of the chest obtained with comparison made to study of 02/22/2019. There is suboptimal inspiration. Heart size and pulmonary vascularity are within normal limits. There is no significant pneumothorax or significant pleural fluid. Impression: Hypoventilation without acute abnormality detected. Dictated by: Dictated on workstation # [id number]
[2019-08-09] MEDS ORDERED: NS IV 1000 ML 250 ML IV SCH (10:10)
[2019-08-09] MEDS ORDERED: NS (IVPB) 250 ML ONE (10:11)
[2019-08-09 10:13] LABS: SODIUM 140 MMOL/L (135-145)
[2019-08-09 10:14] LABS: ALANINE AMINOTRANSFERASE 19 U/L (0-55); ALKALINE PHOSPHATASE 129 U/L (40-136); BILIRUBIN,TOTAL 0.4 MG/DL (0.1-1.0); BUN/CREATININE RATIO 4; CALCIUM 9.5 MG/DL (8.5-10.1); CARBON DIOXIDE 23 MMOL/L (21-32); CHLORIDE 97 MMOL/L (98-107); CREATININE SERUM 8.67 MG/DL (0.60-1.30); GFR ESTIMATED 7; GLUCOSE 166 MG/DL (70-105); POTASSIUM 4.5 MMOL/L (3.6-5.0); TOTAL PROTEIN 8.3 GM/DL (6.4-8.2)
[2019-08-09 10:15] LABS: ALBUMIN 4.9 GM/DL (3.2-4.5)
[2019-08-09] MEDS ORDERED: ACETAMINOPHEN 325 MG TABLET PO ONE (10:15)
[2019-08-09 10:20] LABS: BAND NEUTROPHILS 2 %; BASOPHILS % (MANUAL) 0 %; EOSINOPHILS % (MANUAL) 1 %; LYMPHOCYTES % (MANUAL) 14 %; MONOCYTES % (MANUAL) 3 %; NEUTROPHILS % (MANUAL) 80 %
[2019-08-09] MEDS ORDERED: NS 100 ML (IVPB) BAG IV ONE (10:30)
[2019-08-09] MEDS ORDERED: CATHETER FLUSH 10 ML SYR IV PRN (10:30)
[2019-08-09] MEDS ORDERED: HOLD METFORMIN - RECEIVED CONTRAST 20 ML VIAL IV SCH (10:30)
[2019-08-09] MEDS ORDERED: IOHEXOL 350 MG/ML 100 ML (OMNIPAQUE 350) VIAL IV ONE (10:30)
--- NOTE | 2019-08-09 10:55 | ED Syncope ---
General Chief Complaint: Dizziness/Syncope Stated Complaint: CODE BLUE Nursing Triage Note: Per EMS, patient was at dialysis today, had almost completed treatment when patient had a syncopal episode and became unresponsive. Per dialysis center, they removed patient's fentanyl patch, gave 0.4 mg narcan and 1 liter of IVF. On EMS arrival, patient was alert and responsive, oriented to person only. B/P en route 70s/40s per EMS, heart rate 104. History of Present Illness Date Seen by Provider: Aug 09, 2019 Time Seen by Provider: 09:50 Initial Comments The patient is a 34-year-old male with a history of end-stage renal disease on hemodialysis MWF secondary to childhood vesicoureteral reflux and failure of renal graft in 2005. He is additionally on midodrine for hypotension and on warfarin for recurrent dialysis fistula clots. The patient presents with concern for an episode of unresponsiveness while at dialysis just prior to arrival. Patient reportedly had completed all but 19 minutes of his dialysis session when he was noted to be unresponsive. Patient was unhooked and a fentanyl patch found on his torso was removed and he was given 0.4 mg of Narcan. After this he became more alert and was oriented 1 for EMS who upon arrival to the dialysis center measured a blood pressure of 70s over 40s after 1L IVFs. Upon arrival to the emergency department patient's blood pressure is as low as 60s over 40s and he is alert and oriented in all spheres, although still mildly slow to answer some questions. He does not remember what happened. He reports discomfort to bilateral shoulders which is "aching." He denies fevers, nausea or vomiting, cough, shortness of breath or simran substernal chest pain, abdominal pain, flank pain, back pain, changes in bowel habits. Patient reportedly has had numerous falls recently, including one a couple of days ago which led to a right ankle injury and a prescription for fentanyl patches by his primary care physician yesterday. Reportedly he had put the first fentanyl patch on just today. Allergies and Home Medications Allergies Coded Allergies: sulfamethoxazole (Verified Allergy, Unknown, 02/21/19) trimethoprim (Verified Allergy, Unknown, 02/21/19) Uncoded Allergies: CLEAR EYES (Allergy, Unknown, eye burning, 02/21/19) Thymoglobulin (Adverse Reaction, Severe, low B/P and bradycardia, 08/02/13) Home Medications Alprazolam 0.5 Mg Tablet, 1 TAB PO TID PRN, (Reported) Carvedilol 12.5 Mg Tablet, 12.5 MG PO BID, (Reported) Cephalexin 500 Mg Tablet, 500 MG PO QID Prescribed by: DREW TYLER on 02/21/19 1327 Ciprofloxacin HCl 500 Mg Tablet, 500 MG PO BID Prescribed by: REJI MAYER on 05/29/19 1236 Citalopram Hydrobromide 20 Mg Tablet, 1 EACH PO DAILY, (Reported) Hydrocodone Bit/Acetaminophen 1 Ea Tablet, 1 EACH PO Q6H PRN for ABDOMINAL PAIN Prescribed by: REJI MAYER on 05/29/19 1236 [Phosio] , 4 TAB PO AC, (Reported) [Sensipar] , 30 MG PO DAILY, (Reported) Patient Home Medication List Home Medication List Reviewed: Yes Review of Systems Constitutional: see HPI All Other Systems Reviewed Negative Unless Noted: Yes Past Uwaevyu-Yewday-Tdqcdm Hx Past Med/Social Hx: Reviewed Nursing Past Med/Soc Hx Patient Social History Former Smoker, Quit: Feb 11, 2011 2nd Hand Smoke Exposure: No Recent Foreign Travel: No Contact w/Someone Who Travel: No Recent Infectious Disease Expo: No Recent Hopitalizations: Yes Seasonal Allergies Seasonal Allergies: No Past Medical History Surgeries: Yes (Paritoneal shut placement laparoscopic) Kidney Transplant Respiratory: No Cardiac: No Neurological: No Genitourinary: Yes Dialysis Gastrointestinal: No Musculoskeletal: No Endocrine: No Parathyroid Disease HEENT: No Cancer: No Psychosocial: No Anxiety Integumentary: Yes Psoriasis Blood Disorders: No Family Medical History Reviewed Nursing Family Hx Physical Exam Vital Signs Vital Signs - First Documented 08/09/19 09:53 Temp 36.3 Pulse 95 Resp 30 B/P (MAP) 77/56 (63) Pulse Ox 96 O2 Delivery Room Air Capillary Refill : Less Than 3 Seconds Height, Weight, BMI Height: 5'5.00" Weight: 145lbs. 6.0oz. 65.106709ej; 19.00 BMI Method:Stated General Appearance: No Apparent Distress This is a younger male appearing chronically ill but not acutely toxic and in no acute distress. Head is normocephalic and atraumatic. Neck is supple and nontender. Oropharynx is moist. Lungs are clear to auscultation in all stations. There is a normal S1 and S2 without rubs or gallops and capillary refill is appropriate, less than 2 seconds globally. There are no palpable radial pulses or dorsalis pedis pulses bilaterally. Abdomen is soft, nontender and nondistended. Skin is warm and dry without cyanosis, clubbing or edema. Psychiatrically, the patient demonstrates appropriate mood and affect and is alert. Neurologically, patient moves all extremities equally and there are no lateralizing deficits noted and patient is alert and oriented 4. Examination of the bilateral lower extremities reveals mild bruising and tenderness to palpat ion over the left ankle and foot, unchanged and stable versus a couple of days ago when patient sustained an injury to that area while falling. Focused Exam Lactate Level 08/09/19 10:20: Lactic Acid Level 3.02*H Lactic Acid Level Laboratory Tests Test 08/09/19 10:20 Lactic Acid Level 3.02 MMOL/L (0.50-2.00) *H Progress/Results/Core Measures Results/Orders Lab Results Laboratory Tests Test 08/09/19 09:37 08/09/19 10:20 Range/Units White Blood Count 10.9 4.3-11.0 10^3/uL Red Blood Count 4.53 4.35-5.85 10^6/uL Hemoglobin 15.5 13.3-17.7 G/DL Hematocrit 49 40-54 % Mean Corpuscular Volume 108 H 80-99 FL Mean Corpuscular Hemoglobin 34 25-34 PG Mean Corpuscular Hemoglobin Concent 32 32-36 G/DL Red Cell Distribution Width 15.6 H 10.0-14.5 % Platelet Count 167 130-400 10^3/uL Mean Platelet Volume 11.0 H 7.4-10.4 FL Neutrophils (%) (Auto) 88 H 42-75 % Lymphocytes (%) (Auto) 9 L 12-44 % Monocytes (%) (Auto) 2 0-12 % Eosinophils (%) (Auto) 1 0-10 % Basophils (%) (Auto) 0 0-10 % Neutrophils # (Auto) 9.5 H 1.8-7.8 X 10^3 Lymphocytes # (Auto) 1.0 1.0-4.0 X 10^3 Monocytes # (Auto) 0.2 0.0-1.0 X 10^3 Eosinophils # (Auto) 0.1 0.0-0.3 10^3/uL Basophils # (Auto) 0.0 0.0-0.1 10^3/uL Neutrophils % (Manual) 80 % Lymphocytes % (Manual) 14 % Monocytes % (Manual) 3 % Eosinophils % (Manual) 1 % Basophils % (Manual) 0 % Band Neutrophils 2 % Prothrombin Time 17.7 H 12.2-14.7 SEC INR Comment 1.4 0.8-1.4 Activated Partial Thromboplast Time 28 24-35 SEC Sodium Level 140 135-145 MMOL/L Potassium Level 4.5 3.6-5.0 MMOL/L Chloride Level 97 L 98-107 MMOL/L Carbon Dioxide Level 23 21-32 MMOL/L Anion Gap 20 H 5-14 MMOL/L Blood Urea Nitrogen 37 H 7-18 MG/DL Creatinine 8.67 H 0.60-1.30 MG/DL Estimat Glomerular Filtration Rate 7 BUN/Creatinine Ratio 4 Glucose Level 166 H 70-105 MG/DL Calcium Level 9.5 8.5-10.1 MG/DL Corrected Calcium 8.5-10.1 MG/DL Magnesium Level 3.0 H 1.6-2.4 MG/DL Total Bilirubin 0.4 0.1-1.0 MG/DL Aspartate Amino Transf (AST/SGOT) 34 5-34 U/L Alanine Aminotransferase (ALT/SGPT) 19 0-55 U/L Alkaline Phosphatase 129 40-136 U/L Troponin I < 0.30 <0.30 NG/ML Total Protein 8.3 H 6.4-8.2 GM/DL Albumin 4.9 H 3.2-4.5 GM/DL Lactic Acid Level 3.02 *H 0.50-2.00 MMOL/L My Orders Orders - LALO VALDES MD Cbc With Automated Diff (08/09/19 09:39) Comprehensive Metabolic Panel (08/09/19 09:39) Troponin I Fs (08/09/19 09:39) Ekg Tracing (08/09/19 09:39) Chest 1 View Ap/Pa Only (08/09/19 09:39) Protime With Inr (08/09/19 09:39) Partial Thromboplastin Time (08/09/19 09:39) Magnesium (08/09/19 09:39) Manual Differential (08/09/19 09:37) Lactic Acid Analyzer (08/09/19 10:10) Blood Culture (08/09/19 10:10) Acetaminophen Tablet/Caplet (Tylenol T (08/09/19 10:15) Ed Iv/Invasive Line Start (08/09/19 10:10) Ns Iv 1000 Ml (Sodium Chloride 0.9%) (08/09/19 10:10) Ns (Ivpb) (Sodium Chloride 0.9%) (08/09/19 10:11) Ct Brenda Chest/Noang Abd-Pelv W (08/09/19 10:13) Iohexol Injection (Omnipaque 350 Mg/Ml 1 (08/09/19 10:30) Di Iv Start (Assessment) .IV start (08/09/19 10:26) Received Contrast (Hold Metformin- Contr (08/09/19 10:30) Sodium Chloride Flush (Catheter Flush Sy (08/09/19 10:30) Ns (Ivpb) (Sodium Chloride 0.9% Ivpb Bag (08/09/19 10:30) Blood Culture (08/09/19 10:37) Medications Given in ED Current Medications Medications Dose Ordered Sig/Ghada Route Start Time Stop Time Status Last Admin Dose Admin Iohexol 100 ml ONCE ONCE IV 08/09/19 10:30 08/09/19 10:31 DC 08/09/19 10:54 100 ML Sodium Chloride 10 ml NEEDED PRN IV 08/09/19 10:30 08/09/19 10:54 10 ML Sodium Chloride 100 ml ONCE ONCE IV 08/09/19 10:30 08/09/19 10:31 DC 08/09/19 10:54 100 ML Vital Signs/I&O 08/09/19 09:53 Temp 36.3 Pulse 95 Resp 30 B/P (MAP) 77/56 (63) Pulse Ox 96 O2 Delivery Room Air Blood Pressure Mean: 63 Progress Progress Note : Time: 10:58 Progress Note Concerning situation with very low blood pressure after an apparent syncopal episode at dialysis. Reportedly there is a past history of at least one similar episode. This time there is a possible contribution from fentanyl patch that the patient applied for the first time today. Clinical examination generally reassuring aside from low blood pressures, worse than has been typical for the patient in the past when he is here. We will give a small fluid bolus and check labs and draw cultures and obtain EKG and then reevaluate. Given worse than usual hypotension with syncopal episode and bilateral upper chest/shoulder discomfort, we'll obtain advanced imaging as noted to rule out obstructive shock and intrathoracic vascular catastrophe. If workup is reassuring the patient will minimally be an admission for observation on telemetry and further care, and unfortunately this will need to be at a center which has nephrology capability. Patient and family prefer [facility]. Update 1140: Patient is resting comfortably in no acute distress upon reassessment and remains alert and oriented 4. Vital signs stable and blood pressure mildly improved after small fluid bolus here in the emergency department in the 80s/40s at this time. Workup including advanced imaging of the chest, abdomen and pelvis is unremarkable and reassuring aside from lactic acidosis as noted. Clinical history and examination are not suggestive of acute infectious process / sepsis so we will hold on antibiotic coverage at this time although blood cultures have been drawn. We will proceed with transfer per family request to [facility] for admission, nephrology attention and further care as indicated. The patient is graciously accepted in transfer to [place] by Dr. Brar. Comment Sinus rhythm, rate 109, no acute ST elevation or depression, SC 131, QRS 82, QTC 441, EP interpretation. Diagnostic Imaging Diagonstic Imaging: CT Comments CT BRENDA CHEST/NOANG ABD-PELV W INDICATION: Syncopal episode and became unresponsive. The patient has a history of end-stage renal disease. TECHNIQUE: Axial imaging through the chest, abdomen and pelvis was performed after the administration of intravenous contrast. CT angiographic protocol was utilized for the chest. Multiplanar, 3-D and MIP reformations were also performed through the chest. COMPARISON: Correlation is made with noncontrast CT of the abdomen and pelvis performed on 05/29/2019. FINDINGS: CT angiogram chest: The thoracic aorta is normal in caliber. No dissection is identified. The pulmonary arterial system is without thromboembolism. No filling defects are seen within central, lobar or segmental branches. No pericardial or pleural fluid is identified. No pulmonary infiltrates, noncalcified nodules or masses are seen. No axillary, hilar or mediastinal lymphadenopathy is detected. CT abdomen and pelvis with contrast: There is generalized low density throughout the liver suggestive of hepatic steatosis. There is some sparing in the region of the gallbladder. No discrete liver mass is seen. Gallbladder is unremarkable. No biliary ductal dilatation is identified. The pancreas and spleen are unremarkable. No adrenal mass is identified. Kidneys are markedly atrophic. Multiple small bilateral renal cysts are present. Aorta is calcified but nonaneurysmal. There is large amount of stool throughout the colon and rectum suggestive of constipation. The small bowel appears to be normal caliber. No obstruction is seen. No free fluid or loculated fluid collection is seen. The appendix is unremarkable in the right lower quadrant. Delayed images do not show excretion of contrast into the renal collecting systems or ureters consistent with renal failure. Bladder is decompressed. The prostate is unremarkable. No definite abdominal or pelvic lymphadenopathy is seen. Bony structures again show diffuse osseous sclerosis consistent with renal osteodystrophy. IMPRESSION: 1. No evidence of pulmonary embolism or thoracic aortic dissection. 2. Hepatic steatosis. 3. Moderate stool throughout the colon consistent with constipation. No acute feature in the abdomen or pelvis is seen. 4. Bilateral renal atrophy and renal cystic disease consistent with end-stage renal disease. Dictated on workstation # [id number] Critical Care Note Critical Care Start Time: 10:00 Stop Time: 11:05 Total Time (minutes) 65 Progress Due to severe hypotension and syncopal episode Departure Impression Primary Impression: Syncope and collapse Additional Impressions: Arterial hypotension Lactic acidosis Opiate overdose Disposition: XFER SHT-TRM HOSP Condition: Stable Departure-Patient Inst. Referrals: GABRIELA BOGGS MD (PCP/Family) Primary Care Physician LALO VALDES MD Aug 09, 2019 10:55
--- NOTE | 2019-08-09 11:40 | Diagnostic Imaging Report ---
INDICATION: Syncopal episode and became unresponsive. The patient has a history of end-stage renal disease. TECHNIQUE: Axial imaging through the chest, abdomen and pelvis was performed after the administration of intravenous contrast. CT angiographic protocol was utilized for the chest. Multiplanar, 3-D and MIP reformations were also performed through the chest. COMPARISON: Correlation is made with noncontrast CT of the abdomen and pelvis performed on 05/29/2019. FINDINGS: CT angiogram chest: The thoracic aorta is normal in caliber. No dissection is identified. The pulmonary arterial system is without thromboembolism. No filling defects are seen within central, lobar or segmental branches. No pericardial or pleural fluid is identified. No pulmonary infiltrates, noncalcified nodules or masses are seen. No axillary, hilar or mediastinal lymphadenopathy is detected. CT abdomen and pelvis with contrast: There is generalized low density throughout the liver suggestive of hepatic steatosis. There is some sparing in the region of the gallbladder. No discrete liver mass is seen. Gallbladder is unremarkable. No biliary ductal dilatation is identified. The pancreas and spleen are unremarkable. No adrenal mass is identified. Kidneys are markedly atrophic. Multiple small bilateral renal cysts are present. Aorta is calcified but nonaneurysmal. There is large amount of stool throughout the colon and rectum suggestive of constipation. The small bowel appears to be normal caliber. No obstruction is seen. No free fluid or loculated fluid collection is seen. The appendix is unremarkable in the right lower quadrant. Delayed images do not show excretion of contrast into the renal collecting systems or ureters consistent with renal failure. Bladder is decompressed. The prostate is unremarkable. No definite abdominal or pelvic lymphadenopathy is seen. Bony structures again show diffuse osseous sclerosis consistent with renal osteodystrophy. IMPRESSION: 1. No evidence of pulmonary embolism or thoracic aortic dissection. 2. Hepatic steatosis. 3. Moderate stool throughout the colon consistent with constipation. No acute feature in the abdomen or pelvis is seen. 4. Bilateral renal atrophy and renal cystic disease consistent with end-stage renal disease. Dictated by: Dictated on workstation # [id number]
[2019-08-09] MEDS ORDERED: ACETAMINOPHEN 325 MG TABLET ONE ×2 (13:31→14:17)
[2019-08-09 16:02] VITALS: BP 82/47
== END 2019-08-09 16:00 | disposition short-term general hospital (02) ==
LOC: EDUNIT# 09:09 → ER FS 09:26
DX: R55 Syncope and collapse (principal); I95.9 Hypotension, unspecified; E87.2 Acidosis; T40.601A Poisoning by unspecified narcotics, accidental (unintentional), initial encounter; N18.6 End stage renal disease; F41.9 Anxiety disorder, unspecified; Z88.2 Allergy status to sulfonamides; Z88.1 Allergy status to other antibiotic agents; Z88.8 Allergy status to other drugs, medicaments and biological substances; Z99.2 Dependence on renal dialysis; Z87.891 Personal history of nicotine dependence; Z79.01 Long term (current) use of a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; Z94.0 Kidney transplant status; Z86.39 Personal history of other endocrine, nutritional and metabolic disease
CPT/HCPCS: 36415; 71045; 71275; 74177; 80053; 83605; 83735; 84484; 85007; 85027; 85610; 85730; 87040; 93005; 96360

== ENCOUNTER 2020-04-07 16:47 | Emergency (ER) | payer MEDICARE ==
[~2020-04-07] VITALS: Ht 165.1 cm; Wt 67.0 kg
--- NOTE | 2020-04-07 16:57 | NUR ---
Patient arrival to ED, brought to ED 4 and triaged.
--- NOTE | 2020-04-07 17:18 | ED General ---
General Chief Complaint: Skin/Wound Problems Stated Complaint: SKIN INFECTION ON ARM Source of Information: Patient Exam Limitations: No Limitations (FRANCIS HINOJOSA DO) History of Present Illness Date Seen by Provider: April 07, 2020 Time Seen by Provider: 17:05 Initial Comments The patient is a 34-year-old male who has a history of end-stage renal disease and is on hemodialysis who presents for evaluation of a redness and pain to the left arm over his graft. He states he normally goes to dialysis Monday, Monday, and Monday. On Monday he was accessed and was not having any unusual symptoms but later in the day developed some soreness and some slight redness. Over the weekend this became worse and he was dialyzed yesterday and states that he was having significant redness and pain at a time but they proceeded. He called a dialysis nurse today and was told to come to the emergency department. He states he is a complicated history of graft problems and has had over 60 surgeries. He reports some fatigue but denies fevers or chills, chest pain or shortness of breath, dizziness, nausea or vomiting. He has no other complaints. He says that if he must be transferred he would prefer [facility]. Timing/Duration: 4-5 Days Severity: Moderate Modifying Factors: improves with Movement (left arm makes it worse) Associated Systoms: Malaise (FRANCIS HINOJOSA DO) Allergies and Home Medications Allergies Coded Allergies: sulfamethoxazole (Verified Allergy, Unknown, 02/21/19) trimethoprim (Verified Allergy, Unknown, 02/21/19) Uncoded Allergies: CLEAR EYES (Allergy, Unknown, eye burning, 02/21/19) Thymoglobulin (Adverse Reaction, Severe, low B/P and bradycardia, 08/02/13) Home Medications Alprazolam 0.5 Mg Tablet, 1 TAB PO TID PRN, (Reported) Carvedilol 12.5 Mg Tablet, 12.5 MG PO BID, (Reported) Cephalexin 500 Mg Tablet, 500 MG PO QID Prescribed by: DREW TYLER on 02/21/19 1327 Ciprofloxacin HCl 500 Mg Tablet, 500 MG PO BID Prescribed by: REJI MAYER on 05/29/19 1236 Citalopram Hydrobromide 20 Mg Tablet, 1 EACH PO DAILY, (Reported) Hydrocodone Bit/Acetaminophen 1 Ea Tablet, 1 EACH PO Q6H PRN for ABDOMINAL PAIN Prescribed by: REJI MAYER on 05/29/19 1236 [Phosio] , 4 TAB PO AC, (Reported) [Sensipar] , 30 MG PO DAILY, (Reported) Patient Home Medication List Home Medication List Reviewed: Yes (FRANCIS HINOJOSA DO) Review of Systems Review of Systems Constitutional: malaise EENTM: no symptoms reported Respiratory: no symptoms reported Cardiovascular: no symptoms reported Gastrointestinal: no symptoms reported Genitourinary: no symptoms reported Musculoskeletal: no symptoms reported Skin: other (redness and pain to left upper arm over dialysis fistula) Psychiatric/Neurological: No Symptoms Reported Hematologic/Lymphatic: No Symptoms Reported Immunological/Allergic: no symptoms reported (FRANCIS HINOJOSA DO) All Other Systems Reviewed Negative Unless Noted: Yes (FRANCIS HINOJOSA DO) Past Xjnhuxr-Medmmx-Cuxknn Hx Past Med/Social Hx: Reviewed Nursing Past Med/Soc Hx (FRANCIS HINOJOSA DO) Patient Social History Former Smoker, Quit: Feb 11, 2011 2nd Hand Smoke Exposure: No Recent Foreign Travel: No Contact w/Someone Who Travel: No Recent Hopitalizations: Yes (FRANCIS HINOJOSA DO) Seasonal Allergies Seasonal Allergies: No (FRANCIS HINOJOSA DO) Past Medical History Surgeries: Yes (Peritoneal shunt placement laparoscopic) Dialysis, Kidney Transplant Respiratory: No Cardiac: No Neurological: No Genitourinary: Yes Dialysis Gastrointestinal: No Musculoskeletal: No Endocrine: No Parathyroid Disease HEENT: No Cancer: No Psychosocial: No Anxiety Integumentary: Yes Psoriasis Blood Disorders: No (FRANCIS HINOJOSA DO) Physical Exam Vital Signs Capillary Refill : (FRANCIS HINOJOSA DO) Height, Weight, BMI Height: 5'5.00" Weight: 145lbs. 6.0oz. 65.742695us; 19.00 BMI Method:Stated General Appearance: No Apparent Distress, WD/WN Eyes: Bilateral Eye Normal Inspection, Bilateral Eye PERRL, Bilateral Eye EOMI HEENT: PERRL/EOMI, Normal ENT Inspection Neck: Full Range of Motion, Non Tender, Supple Respiratory: Lungs Clear, Normal Breath Sounds, No Accessory Muscle Use, No Respiratory Distress Cardiovascular: Regular Rate, Rhythm, No Edema, No JVD Gastrointestinal: Normal Bowel Sounds, No Pulsatile Mass, Non Tender, Soft Extremity: Normal Capillary Refill, Normal Range of Motion, Non Tender Neurologic/Psychiatric: Alert, Oriented x3, No Motor/Sensory Deficits, Normal 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/Affect, 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 as Tested Skin: Normal Color, Warm/Dry, Erythema (redness and warmth over left arm fistula, + palpable thrill, indurated rope-like bands to left upper inner arm) (FRANCIS HINOJOSA DO) Focused Exam Lactate Level 04/07/20 17:20: Lactic Acid Level 0.81 (BRYANNA CORONADO MD) Lactic Acid Level Laboratory Tests Test 04/07/20 17:20 Lactic Acid Level 0.81 MMOL/L (0.50-2.00) (BRYANNA CORONADO MD) Progress/Results/Core Measures Suspected Sepsis SIRS Temperature: Pulse: Respiratory Rate: Laboratory Tests 04/07/20 17:20: White Blood Count 7.3 Blood Pressure / Mean: 04/07/20 17:20: Laboratory Tests 04/07/20 17:20: Platelet Count 158 (FRANCIS HINOJOSA DO) Results/Orders Lab Results Laboratory Tests Test 04/07/20 17:20 Range/Units White Blood Count 7.3 4.3-11.0 10^3/uL Red Blood Count 3.18 L 4.35-5.85 10^6/uL Hemoglobin 10.3 L 13.3-17.7 G/DL Hematocrit 32 L 40-54 % Mean Corpuscular Volume 101 H 80-99 FL Mean Corpuscular Hemoglobin 32 25-34 PG Mean Corpuscular Hemoglobin Concent 32 32-36 G/DL Red Cell Distribution Width 13.7 10.0-14.5 % Platelet Count 158 130-400 10^3/uL Mean Platelet Volume 11.4 H 7.4-10.4 FL Neutrophils (%) (Auto) 80 H 42-75 % Lymphocytes (%) (Auto) 13 12-44 % Monocytes (%) (Auto) 6 0-12 % Eosinophils (%) (Auto) 1 0-10 % Basophils (%) (Auto) 0 0-10 % Neutrophils # (Auto) 5.9 1.8-7.8 X 10^3 Lymphocytes # (Auto) 0.9 L 1.0-4.0 X 10^3 Monocytes # (Auto) 0.4 0.0-1.0 X 10^3 Eosinophils # (Auto) 0.1 0.0-0.3 10^3/uL Basophils # (Auto) 0.0 0.0-0.1 10^3/uL Sodium Level 137 135-145 MMOL/L Potassium Level 5.0 3.6-5.0 MMOL/L Chloride Level 92 L 98-107 MMOL/L Carbon Dioxide Level 26 21-32 MMOL/L Anion Gap 19 H 5-14 MMOL/L Blood Urea Nitrogen 39 H 7-18 MG/DL Creatinine 9.06 H 0.60-1.30 MG/DL Estimat Glomerular Filtration Rate 7 BUN/Creatinine Ratio 4 Glucose Level 87 70-105 MG/DL Lactic Acid Level 0.81 0.50-2.00 MMOL/L Calcium Level 8.9 8.5-10.1 MG/DL Corrected Calcium 8.6 8.5-10.1 MG/DL Total Bilirubin 0.2 0.1-1.0 MG/DL Aspartate Amino Transf (AST/SGOT) 20 5-34 U/L Alanine Aminotransferase (ALT/SGPT) 13 0-55 U/L Alkaline Phosphatase 142 H 40-136 U/L Total Protein 6.8 6.4-8.2 GM/DL Albumin 4.4 3.2-4.5 GM/DL (BRYANNA CORONADO MD) Medications Given in ED Current Medications Medications Dose Ordered Sig/Ghada Route Start Time Stop Time Status Last Admin Dose Admin Fentanyl Citrate 50 mcg ONCE ONCE IVP 04/07/20 18:00 04/07/20 18:01 DC 04/07/20 18:09 50 MCG Piperacillin Sod/ Tazobactam Sod 4.5 gm/Sodium Chloride 100 ml @ 200 mls/hr ONCE ONCE IV 04/07/20 17:45 04/07/20 18:14 DC 04/07/20 18:00 200 MLS/HR (BRYANNA CORONADO MD) Vital Signs/I&O Capillary Refill : (FRANCIS HINOJOSA DO) Progress Note : Time: 18:19 Progress Note I did discuss at length with Dr. La on-call hospitalist at [facility]. We did discuss the patient's concerns of possible infected dialysis g raft and left upper arm. Reviewed all patient's laboratory evaluation. She is accepted this patient for transfer to their facility for observation. They will also perform an ultrasound while there to make sure there were not dealing with a clot versus vascular graft. She is agreeable with IV antibiotics of that were ordered. This facility. She will see patient upon arrival. (BRYANNA CORONADO MD) Departure Impression Primary Impression: Cellulitis Additional Impressions: Vascular graft infection Dialysis patient Disposition: 02 XFER SHT-TRM HOSP Condition: Stable Transfer Transfer Reason: Exceeds level of care Time Spoke to Accepting Phy: 18:21 Transfer Progress Notes I did discuss at length with Dr. La on-call hospitalist at [facility]. We did discuss the patient's concerns of possible infected dialysis graft and left upper arm. Reviewed all patient's laboratory evaluation. She is accepted this patient for transfer to their facility for observation. They will also perform an ultrasound while there to make sure there were not dealing with a clot versus vascular graft. She is agreeable with IV antibiotics of that were ordered. This facility. She will see patient upon arrival. Transfer Time: 18:21 Transfer Facility: [facility] Method of Transfer: EMS (BRYANNA CORONADO MD) Departure-Patient Inst. Referrals: GABRIELA BOGGS MD (PCP/Family) Primary Care Physician FRANCIS HINOJOSA DO April 07, 2020 17:18 BRYANNA CORONADO MD April 07, 2020 18:22
--- NOTE | 2020-04-07 17:20 | NUR ---
IV started to RAC, labs drawn. BC #1 drawn.
--- NOTE | 2020-04-07 17:35 | NUR ---
BC #2 drawn via Venipuncture to R hand
[2020-04-07 17:36] LABS: HEMATOCRIT 32 % (40-54); HEMOGLOBIN 10.3 G/DL (13.3-17.7); MEAN CORPUSCULAR HEMOGLOBIN 32 PG (25-34); MEAN CORPUSCULAR HGB CONC 32 G/DL (32-36); MEAN CORPUSCULAR VOLUME 101 FL (80-99); PLATELET COUNT 158 10^3/uL (130-400); RED CELL DISTRIBUTION WIDTH 13.7 % (10.0-14.5); WHITE BLOOD COUNT 7.3 10^3/uL (4.3-11.0)
[2020-04-07 17:37] LABS: BASOPHILS % (AUTO) 0 % (0-10); EOSINOPHILS # (AUTO) 0.1 10^3/uL (0.0-0.3); EOSINOPHILS % (AUTO) 1 % (0-10); LYMPHOCYTES # (AUTO) 0.9 X 10^3 (1.0-4.0); LYMPHOCYTES % (AUTO) 13 % (12-44); MEAN PLATELET VOLUME 11.4 FL (7.4-10.4); MONOCYTES # (AUTO) 0.4 X 10^3 (0.0-1.0); MONOCYTES % (AUTO) 6 % (0-12); NEUTROPHILS # (AUTO) 5.9 X 10^3 (1.8-7.8); NEUTROPHILS % (AUTO) 80 % (42-75)
[2020-04-07] MEDS ORDERED: PIPERACILLIN SODIUM/TAZOBACTAM 4.5 GM in NS (IVPB) 100 ML IV ONE (17:45)
[2020-04-07] MEDS ORDERED: VANCOMYCIN INJECTION 1,500 MG in NS IV 500 ML 500 ML IV ONE (17:45)
[2020-04-07] MEDS ORDERED: fentaNYL INJECTION 100 MCG/2 ML AMP ONE (17:52)
[2020-04-07 17:55] LABS: ALBUMIN 4.4 GM/DL (3.2-4.5); BILIRUBIN,TOTAL 0.2 MG/DL (0.1-1.0); CALCIUM 8.9 MG/DL (8.5-10.1); CREATININE SERUM 9.06 MG/DL (0.60-1.30); TOTAL PROTEIN 6.8 GM/DL (6.4-8.2)
[2020-04-07] MEDS ORDERED: fentaNYL INJECTION 100 MCG/2 ML AMP IVP ONE ×2 (18:00→18:45)
--- NOTE | 2020-04-07 18:09 | NUR ---
Fentanyl 50 mcg SIVP given for c/o pain in Left arm that radiates up arm into L neck area. Pain varied from "3-7"/10.
--- NOTE | 2020-04-07 19:00 | NUR ---
Called [facility] to give report to Chiquita PERERA. Nurse in a patient room getting report. Will call back. Awaiting EMS arrival.
[2020-04-07] MEDS ORDERED: CITA40TA11 (19:14)
[2020-04-07] MEDS ORDERED: CINA90TA4 (19:14)
[2020-04-07] MEDS ORDERED: CINA60TA4 (19:14)
[2020-04-07] MEDS ORDERED: MIDO10TA (19:14)
--- NOTE | 2020-04-07 19:15 | NUR ---
[facility] arriving for patient.
--- NOTE | 2020-04-07 19:20 | NUR ---
Chiquita RN returned call to this RN. Report given.
--- NOTE | 2020-04-07 19:21 | NUR ---
Fentanyl 50 mcg SIVP given for c/o varied pain in upper left arm with spasm like pain into muscles. Pain rated "7"/10.
[2020-04-07 19:25] VITALS: BP 118/58
--- NOTE | 2020-04-07 19:25 | NUR ---
[facility] departing at this time for [facility], Vancomycin infusing in route. Pt is stable. Afebrile, VSS.
--- OUTSIDE RECORDS SUMMARY | 2020-04-07 21:19 | XMS REPORT ---
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 3 May, Active 06338452 Problem End stage renal disease N18.6 Active 04987933 Problem Plaque psoriasis L40.0 Active 200 219854 Problem Orthostatic hypotension I95.1 Sep, Act jackie 81167701 Problem History of Coumadin therapy Z92.29 March, Active 415343699 Problem Acute blood loss anemia D62 Sep, Act jackie 171347750 Problem Chronic pain syndrome G89.4 Feb, Activ e 378783007 Problem Pilonidal cyst L05.91 Jan, Active 47 182681 Problem Erectile dysfunction N52.9 Aug, Active 554081680 Problem Cellulitis of left upper arm L03.114 Sep, 201 8 Active [id number] Problem SIRS (systemic inflammatory response syndrome) R65.10 Sep, Active 458683111 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 Active 995054375 Problem Peripheral vascular disease I73.9 Ac tive 735367922 Problem Thrombocytopenia D69.6 Active 415 256507 Problem Other pancytopenia D61.818 Active 1 91868308 Problem S/P kidney transplant Z94.0 May, Activ e 750738430 Problem Allergic rhinitis due to pollen, unspecified seasonality J30.1 Active 10912127 Problem Solitary bone cyst of lower leg M85.469 09 Feb, 2014 Active 866453171 Problem Patellofemoral syndrome M22.2X9 09 Feb, 2014 Act jackie 559550135 Problem Erectile dysfunction, unspecified erectile dysfunction typ e N52.9 Active 428867436 Problem Dependence on renal dialysis Z99.2 A ctive 544292173 Problem Disorder of parathyroid gland, unspecified E21.5 Active 81449116 Problem Moderate episode of recurrent major depressive disorder F33.1 Active 893284045 ALLERGIES No Information ENCOUNTERS Encounter Location Date Diagnosis [address] [id number] [address] Jun, [address] [id number], [place] [address] March, [address] [id number] [address] Feb, Allergic rhinitis due to jatin sohan, unspecified seasonality J30.1 ; End stage renal disease N18.6 and Other pancytopenia D61.[address] [id number] [place] [address] Nov, Thrombocytopenia D69.6 ; Dis order of parathyroid gland, unspecified E21.5 ; Dependence on renal dialysis Z99.2 ; half-way (current) use of a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 Z79.01 and Other pancytopenia D61.[address] [id number] [place] [address] 08 Nov, 2019 Encounter for Medicare annua l wellness exam Z00.00 ; End-stage renal disease on hemodialysis N18.6 ; Other pancytopenia D61.818 ; Peripheral vascular disease I73.9 ; Moderate episode of recurrent major depressive disorder F33.1 and Plaque psoriasis L40.[address] [id number], [place] [address] 11 Oct, 2019 Moderate episode of recurren t major depressive disorder F33.1 ; Chronic pain syndrome G89.4 ; S/P kidney transplant Z94.0 ; Renal transplant failure and rejection T86.12 ; End stage renal disease N18.6 and Thrombocytopenia D69.6 [facility] [address] [id number] [place] [address] Oct, 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 a 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 Z79.01 [facility] [address] [id number] [place] [address] Sep, [facility] [address] [id number] [place] [address] Sep, [facility] [address] [id number] [place] [address] Aug, [facility] [address] [id number] [place] [address] Aug, [facility] [address] [id number] [place] [address] Aug, [facility] [address] [id number] [place] [address] Aug, Abscess L02.91 [facility] [address] [id number] [place] [address] Aug, [facility] [address] [id number] [place] [address] Jul, [facility] [address] [id number] [place] [address] Jul, half-way (current) use of a 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 Z79.01 [facility] [address] [id number] [place] [address] Jul, [facility] [address] [id number] [place] [address] Jul, Right upper quadrant pain R1 0.11 [facility] [address] [id number] [place] [address] Jul, Right upper quadrant pain R1 0.11 [facility] [address] [id number] [place] [address] Jul, [facility] [address] [id number] [place] [address] Jul, Erectile dysfunction, unspec ified erectile dysfunction type N52.9 ; half-way (current) use of a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 Z79.01 ; Peripheral vascular disease I73.9 and Thrombocytopenia D69.6 [facility] [address] [id number] [place] [address] Jul, [facility] [address] [id number] [place] [address] Jun, [facility] [address] [id number] [place] [address] May, [facility] [address] [id number] [place] [address] Apr, [facility] [address] [id number] [place] [address] Apr, [facility] [address] [id number] [place] [address] Apr, 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 a 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 Z79.01 [facility] [address] [id number] [place] [address] Apr, 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 a 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 Z79.01 [facility] [address] [id number] [place] [address] Apr, [facility] [address] [id number] [place] [address] Apr, 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 a 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 Z79.01 [facility] [address] [id number] [place] [address] Apr, [facility] [address] [id number] [place] [address] March, [facility] [address] [id number] [place] [address] March, Plantar fasciitis of left fo ot M72.2 [facility] [address] [id number] [place] [address] March, [facility] [address] [id number] [place] [address] March, [facility] [address] [id number] [place] [address] March, Otorrhea of left ear H92.12 [facility] [address] [id number], [place] [address] March, half-way (current) use of a 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 Z79.01 [facility] [address] [id number] [place] [address] March, [facility] [address] [id number], [place] [address] March, [facility] [address] [id number] [place] [address] March, [facility] [address] [facility] [id number] 100KS [place] [address] March, History of Coumadin therapy Z92.29 [facility] [address] [id number] [place] [address] Feb, [facility] [address] [id number] [place] [address] Feb, [facility] [address] [id number] [place] [address] Feb, half-way (current) use of a 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 Z79.01 [facility] [address] [id number] [place] [address] Feb, half-way (current) use of a 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 Z79.01 [facility] [address] [id number] [place] [address] Feb, half-way (current) use of a 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 Z79.01 [facility] [address] 340B [id number] [place] [address] Jan, [facility] [address] [id number] [place] [address] Jan, 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 a 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 Z79.01 [facility] [address] 340B [id number] [place] [address] Jan, [facility] [address] 340B [id number], [place] [address] Jan, 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 a 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 Z79.01 [facility] [address] [facility] [id number] [address] [place] [address] Jan, half-way (current) use of a 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 Z79.01 [facility] [address] [id number] [address] [place] [address] Jan, 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 a 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 Z79.01 and End stage renal disease N18.6 [facility] [address] [id number] [place] [address] Jan, half-way (current) use of a 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 Z79.01 [facility] [address] 340B [id number] [place] [address] Dec, [facility] [address] 340B [id number] [place] [address] Dec, half-way (current) use of a 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 Z79.01 [facility] [address] 340B [id number] [place] [address] Dec, End stage renal disease N18. 6 [facility] [address] [facility] [id number] [address] [place] [address] Nov, [facility] [address] [facility] [id number] [address] [place] [address] Oct, [facility] [address] [facility] [id number] [address] [place] [address] Oct, [facility] [address] [facility] [id number] [address] [place] [address] Oct, [facility] [address] [facility] [id number] [address] [place] [address] Sep, [facility] [address] [facility] [id number] [address] [place] [address] Sep, [facility] [address] [facility] [id number] [address] [place] [address] Sep, [facility] [address] [facility] [id number] [address] [place] [address] Sep, IMMUNIZATIONS No Known Immunizations SOCIAL HISTORY Never Assessed REASON FOR VISIT inr PLAN OF CARE VITAL SIGNS MEDICATIONS Unknown Medications RESULTS No Results PROCEDURES No Known procedures INSTRUCTIONS MEDICATIONS ADMINISTERED No Known Medications MEDICAL (GENERAL) HISTORY Type Description Date Medical History Kidney disease Medical History End stage renal disease Medical History Chronic pain syndrome Medical History Plaque psoriasis Medical History Erectile dysfunction Medical History Systemic inflammatory respon se syndrome (SIRS) of non-infectious origin without acute organ dysfunction Medical History Hypotension Surgical History Kidney Transplant 2006 Hospitalization History Kidney Issues
--- OUTSIDE RECORDS SUMMARY | 2020-04-07 21:19 | XMS REPORT ---
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 3 May, Active 52353032 Problem End stage renal disease N18.6 Active 79639971 Problem Plaque psoriasis L40.0 Active 200 909493 Problem Orthostatic hypotension I95.1 Sep, Act jackie 27291392 Problem History of Coumadin therapy Z92.29 March, Active 199623587 Problem Acute blood loss anemia D62 Sep, Act jackie 295246627 Problem Chronic pain syndrome G89.4 Feb, Activ e 772908734 Problem Pilonidal cyst L05.91 Jan, Active 47 815218 Problem Erectile dysfunction N52.9 Aug, Active 762212899 Problem Cellulitis of left upper arm L03.114 Sep, 201 8 Active [id number] Problem SIRS (systemic inflammatory response syndrome) R65.10 Sep, Active 674028039 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 Active 247442875 Problem Peripheral vascular disease I73.9 Ac tive 627376575 Problem Thrombocytopenia D69.6 Active 415 981517 Problem Other pancytopenia D61.818 Active 1 96270549 Problem S/P kidney transplant Z94.0 May, Activ e 250298780 Problem Allergic rhinitis due to pollen, unspecified seasonality J30.1 Active 79304064 Problem Solitary bone cyst of lower leg M85.469 09 Feb, 2014 Active 172867377 Problem Patellofemoral syndrome M22.2X9 09 Feb, 2014 Act jackie 774774950 Problem Erectile dysfunction, unspecified erectile dysfunction typ e N52.9 Active 065968541 Problem Dependence on renal dialysis Z99.2 A ctive 668646498 Problem Disorder of parathyroid gland, unspecified E21.5 Active 29406622 Problem Moderate episode of recurrent major depressive disorder F33.1 Active 166300574 ALLERGIES No Information ENCOUNTERS Encounter Location Date Diagnosis [address] 340 [id number] [address] Jun, [address] 340 [id number] [address] March, [address] [id number] [address] Feb, Allergic rhinitis due to jatin sohan, unspecified seasonality J30.1 ; End stage renal disease N18.6 and Other pancytopenia D61.[address] [id number] [place] [address] Nov, Thrombocytopenia D69.6 ; Dis order of parathyroid gland, unspecified E21.5 ; Dependence on renal dialysis Z99.2 ; alf (current) use of a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 Z79.01 and Other pancytopenia D61.[address] 340B [id number] [place] [address] 08 Nov, 2019 Encounter for Medicare annua l wellness exam Z00.00 ; End-stage renal disease on hemodialysis N18.6 ; Other pancytopenia D61.818 ; Peripheral vascular disease I73.9 ; Moderate episode of recurrent major depressive disorder F33.1 and Plaque psoriasis L40.[address] 340B [id number] [address] 11 Oct, 2019 Moderate episode of recurren t major depressive disorder F33.1 ; Chronic pain syndrome G89.4 ; S/P kidney transplant Z94.0 ; Renal transplant failure and rejection 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.12 ; End stage renal disease N18.6 and Thrombocytopenia D69.6 [facility] [address] [id number] [place] [address] Oct, 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 [facility] [address]B [id number] [place] [address] Sep, [facility] [address] 340B [id number] [place] [address] Sep, [facility] [address] 340B [id number] [place] [address] Aug, [facility] [address]B [id number] [place] [address] Aug, [facility] [address] 340B [id number] [place] [address] Aug, [facility] [address] 340B [id number] [place] [address] Aug, Abscess L02.91 [facility] [address] 340B [id number] [place] [address] Aug, [facility] [address] [id number] [place] [address] Jul, [facility] [address] [id number] [place] [address] Jul, alf (current) use of a 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 Z79.01 [facility] [address] 340B [id number] [place] [address] Jul, [facility] [address] 340B [id number] [place] [address] Jul, Right upper quadrant pain R1 0.11 [facility] [address]B [id number] [place] [address] Jul, Right upper quadrant pain R1 0.11 [facility] [address] 340B [id number] [place] [address] Jul, [facility] [address] [id number] [place] [address] Jul, Erectile dysfunction, unspec ified erectile dysfunction type N52.9 ; alf (current) use of a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 Z79.01 ; Peripheral vascular disease I73.9 and Thrombocytopenia D69.6 [facility] [address] [id number] [place] [address] Jul, [facility] [facility] [address]B [id number] [place] [address] Jun, [facility] [address] [id number] [place] [address] May, [facility] [address] [id number] [place] [address] Apr, [facility] [address] [id number] [place] [address] Apr, [facility] [place] [facility] [address] [id number] [place] [address] Apr, 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 [facility] [address] [id number] [place] [address] Apr, 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 [facility] [address] [id number] [place] [address] Apr, [facility] [address] [id number] [place] [address] Apr, 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 [facility] [address] [id number] [place] [address] Apr, [facility] [address] [id number] [place] [address] March, [facility] [address] [id number] [place] [address] March, Plantar fasciitis of left fo ot M72.2 [facility] [address] 340B [id number] [place] [address] March, [facility] [address] 340B [id number] [place] [address] March, [facility] [address] [id number] [place] [address] March, Otorrhea of left ear H92.12 [facility] [address] 340B [id number] [address] March, alf (current) use of a 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 Z79.01 [facility] [address] 340B [id number] [place] [address] March, [facility] [address] 340B [id number] [address] March, [facility] [address] 340B [id number] [place] [address] March, [facility] [place] [address] [facility] [id number] 100[address] [place] [address] March, History of Coumadin therapy Z92.29 [facility] [address] 340B [id number] [place] [address] Feb, [facility] [address] 340B [id number] [place] [address] Feb, [facility] [address] 340B [id number] [place] [address] Feb, alf (current) use of a 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 Z79.01 [facility] [address] [id number] [place] [address] Feb, alf (current) use of a 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 Z79.01 [facility] [address] [id number] [place] [address] Feb, alf (current) use of a 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 Z79.01 [facility] [facility] [address] 340B [id number] [place] [address] Jan, [facility] [place] [address] [id number] [place] [address] Jan, 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 [facility] [address] 340B [id number] [place] [address] Jan, [facility] [facility] [address] 340B [id number] [address] Jan, 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 [facility] [address] [facility] [id number] [address] [place] [address] Jan, alf (current) use of a 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 Z79.01 [facility] [address] [id number] [address] [place] [address] Jan, 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 and End stage renal disease N18.6 [facility] [address] 340B [id number] [place] [address] Jan, alf (current) use of a 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 Z79.01 [facility] [address] 340B [id number] [place] [address] Dec, [facility] [facility] [address] 340B [id number] [place] [address] Dec, alf (current) use of a 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 Z79.01 [facility] [place] [address] 340B [id number] [place] [address] Dec, End stage renal disease N18. 6 [facility] [address] [facility] [id number] [address] [place] [address] Nov, [facility] [address] [facility] [id number] [address] [place] [address] Oct, [facility] [address] [facility] [id number] [address] [place] [address] Oct, [facility] [address] [facility] [id number] [address] [place] [address] Oct, [facility] [address] [facility] [id number] [address] [place] [address] Sep, [facility] [address] [facility] [id number] [address] [place] [address] Sep, [facility] [address] [facility] [id number] [address] [place] [address] Sep, [facility] [address] [facility] [id number] [address] [place] [address] Sep, IMMUNIZATIONS No Known Immunizations SOCIAL HISTORY Never Assessed REASON FOR VISIT PLAN OF CARE VITAL SIGNS MEDICATIONS Unknown Medications RESULTS Name Result Date Reference Range INR (IN HOUSE) 2019-02-12 INR 5.3 1.10 - 3.30 PREVIOUS INR 3.5 CURRENT COUMADIN DOSE NEW COUMADIN DOSE Lot # [id number] Exp date 03/2020 PROCEDURES Procedure Date Ordered Result Body Site PROTHROMBIN TIME February 12, 2019 INSTRUCTIONS MEDICATIONS ADMINISTERED No Known Medications MEDICAL [...]
--- OUTSIDE RECORDS SUMMARY | 2020-04-07 21:19 | XMS REPORT ---
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 3 May, Active 72925843 Problem Complication of arteriovenous dialysis fistula T82.9XXA Sep, Active Problem Plaque psoriasis L40.0 Active 200 574369 Problem Pilonidal cyst L05.91 Jan, Active 47 213421 Problem History of Coumadin therapy Z92.29 March, Active 723165219 Problem Patellofemoral syndrome M22.2X9 Feb, Act jackie 981087251 Problem Cellulitis of left upper arm L03.114 Sep, 201 8 Active 92267838264387010 Problem SIRS (systemic inflammatory response syndrome) R65.10 Sep, Active 569261790 Problem Chronic pain syndrome G89.4 Feb, Activ e 133581240 Problem Orthostatic hypotension I95.1 Sep, Act jackie 89902689 Problem Erectile dysfunction N52.9 Aug, Active 364594182 Problem Acute blood loss anemia D62 Sep, Act jackie 027555192 Problem End stage renal disease N18.6 Active 44777624 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 Active 642215652 Problem Erectile dysfunction, unspecified erectile dysfunction typ e N52.9 Active 960138317 Problem Moderate episode of recurrent major depressive disorder F33.1 Active 578093591 Problem Solitary bone cyst of lower leg M85.469 Feb, Active 616245119 Problem Other pancytopenia D61.818 Active 1 38237704 Problem End-stage renal disease on hemodialysis N18.6 06 Sep, 2011 Active 02961113 Problem S/P kidney transplant Z94.0 11 May, 2011 Activ e 297547428 Problem Peripheral vascular disease I73.9 Ac tive 189148678 Problem Thrombocytopenia D69.6 Active 415 447356 Problem Dependence on renal dialysis Z99.2 A ctive 058697517 Problem Disorder of parathyroid gland, unspecified E21.5 Active 67271330 ALLERGIES No Information ENCOUNTERS Encounter Location Date Diagnosis [address] [place] [address] Feb, [address] [place] [address] Nov, Thrombocytopenia D69.6 ; Dis order of parathyroid gland, unspecified E21.5 ; Dependence on renal dialysis Z99.2 ; 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 and Other pancytopenia D61.818 [address] [place] [address] 08 Nov, 2019 Encounter for Medicare ann l wellness exam Z00.00 ; End-stage renal disease on hemodialysis N18.6 ; Other pancytopenia D61.818 ; Peripheral vascular disease I73.9 ; Moderate episode of recurrent major depressive disorder F33.1 and Plaque psoriasis L40.0 [address] [place] [address] Oct, Moderate episode of recurren t major depressive disorder F33.1 ; Chronic pain syndrome G89.4 ; S/P kidney transplant Z94.0 ; Renal transplant failure and rejection T86.12 ; End stage renal disease N18.6 and Thrombocytopenia D69.6 [address] [place] [address] Oct, assisted (current) use of a 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 Z79.01 [address] [place] [address] Sep, [address] [place] [address] Sep, [facility] [address] [place] [address] Aug, [facility] [address] [place] [address] Aug, [facility] [address] [place] [address] Aug, [facility] [address] [place] [address] Aug, Abscess L02.91 [facility] [address] [place] [address] Aug, [facility] [address] [place] [address] Jul, [facility] [address] [place] [address] Jul, 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 [facility] [address] [place] [address] Jul, [facility] [address] [place] [address] Jul, Right upper quadrant pain R1 0.11 [facility] [address] [place] [address] Jul, Right upper quadrant pain R1 0.11 [facility] [address] [place] [address] Jul, [facility] [address] [place] [address] Jul, Erectile dysfunction, unspec ified erectile dysfunction type N52.9 ; 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 ; Peripheral vascular disease I73.9 and Thrombocytopenia D69.6 [facility] [address] [place] [address] Jul, [facility] [address] [place] [address] Jun, [facility] [address] [place] [address] May, [facility] [address] [place] [address] Apr, [facility] [address] [place] [address] Apr, [facility] [address] [place] [address] Apr, assisted (current) use of a 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 Z79.01 [facility] [address] [place] [address] Apr, 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 [facility] [address] [place] [address] Apr, [facility] [address] [place] [address] Apr, 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 [facility] [address] [place] [address] Apr, [facility] [address] [place] [address] March, [facility] [address] [place] [address] March, Plantar fasciitis of left fo ot M72.2 [facility] [address] [place] [address] March, [facility] [address] [place] [address] March, [facility] [address] [place] [address] March, Otorrhea of left ear H92.12 [facility] [address] [place] [address] March, 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 [facility] [place] [facility] [address] [place] [address] March, [facility] [place] [facility] [address] [place] [address] March, [facility] [facility] [address] [place] [address] March, [facility] [address] [facility] [place] [address] March, History of Coumadin therapy Z92.29 [facility] [place] [facility] [address] [place] [address] Feb, [facility] [place] [facility] [address] [place] [address] Feb, [facility] [place] [facility] [address] [place] [address] Feb, 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 [facility] [place] [facility] [address] [place] [address] Feb, assisted (current) use of a 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 Z79.01 [facility] [place] [facility] [address] [place] [address] Feb, assisted (current) use of a 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 Z79.01 [facility] [place] [facility] [address] [place] [address] Jan, [facility] [address] [facility] [place] [address] Jan, 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 [facility] [place] [facility] [address] [place] [address] Jan, [facility] [place] [facility] [address] [place] [address] Jan, assisted (current) use of a 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 Z79.01 [facility] [address] [facility] [place] [address] 15 Jan, 2019 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 [facility] [address] [facility] [place] [address] 14 Jan, 2019 assisted (current) use of anticoagulant s Z79.01 and End stage renal disease N18.6 [facility] [address] [place] [address] Jan, 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 6 [facility] [address] [id number] [place] [address] Nov, [facility] [address] [facility] [place] [address] Oct, [facility] [address] [facility] [place] [address] Oct, [facility] [address] [id number] [place] [address] Oct, [facility] [address] [id number] [place] [address] Sep, [facility] [address] [id number] [place] [address] Sep, [facility] [address] [id number] [place] [address] Sep, [facility] [id number] [place] [address] Sep, IMMUNIZATIONS No Known Immunizations SOCIAL HISTORY Never Assessed REASON FOR VISIT Controlled Med Refill 02/08 PLAN OF CARE VITAL SIGNS MEDICATIONS Medication Instructions Dosage Frequency Start Date End Date Duration S rashmi Oxycodone-Acetaminophen 10-325 MG Oral 4 times a day 1 tablet 6h Jan, 28 days Active RESULTS No Results PROCEDURES No Known procedures [...] Medical History Hypotension Surgical History Kidney Transplant 2005 Hospitalization History Kidney Issues
--- OUTSIDE RECORDS SUMMARY | 2020-04-07 21:20 | XMS REPORT | Continuity of Care Document ---
Author Organization Unknown Address Unknown Phone Unavailable Allergies Active Description Code Type Severity Reaction Onset Reported/Identified Relationship to Patient Clinical Status Yes GLYCERIN 27952 DRUG INGREDI Low Not specifie Yes ANTI-THYMOCYTE GLOB (RABBIT) 20321 DRUG Med Hypotension 04/30/2009 Yes Thymoglobulin Thymoglobulin Severe low B/P and bra 08/02/2013 Yes NAPHAZOLINE 79364 DRUG INGREDI Low N/A 02/23/2017 Yes HYPROMELLOSE 83230 DRUG INGREDI Low Not specifie 07/09/2017 Yes MORPHINE 18597 DRUG INGREDI Low Other 07/09/2017 Yes IMMUNE GLOBULIN (HUMAN) (IGG) 22044 DRUG Med Other 07/27/2018 Yes SULFAMETHOXAZOLE-TRIMETHOPRIM 51535 DRUG Low Other 07/27/2018 Yes CLEAR EYES CLEAR EYES Unknown eye burning 02/21/2019 Yes sulfamethoxazole [id number] Drug Allergy Unknown N/A 02/21/2019 Yes trimethoprim [id number] Drug Allergy Unknown N/A 02/21/2019 Medications There is no data. Problems Date Dx Coded Attending Type Code Diagnosis Diagnosed By 10/02/2018 Z94.0 Cherry vazquez transplant status 10/02/2018 N18.6 End stage renal disease 10/02/2018 Z99.2 Depe ndence on renal dialysis 10/02/2018 LILIAM BLANCO N18. 6 End stage renal disease 10/02/2018 LILIAM BLANCO Z99. 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 73 Personal history of transient ischemic attack (TIA), and cerebral infarction without residual deficits 11/20/2018 Z86.73 Per db history of transient ischemic attack (TIA), and cerebral infarction without residual deficits 01/21/2019 N18.6 End stage renal disease 01/21/2019 Z01.818 En counter for other preprocedural examination 01/21/2019 Z99.2 Depe ndence on renal dialysis 01/21/2019 F41.1 Gene ralized anxiety disorder 01/21/2019 N18.6 End stage renal disease 01/21/2019 Z01.818 En counter for other preprocedural examination 01/21/2019 Z99.2 Depe ndence on renal dialysis 01/22/2019 F41.1 Gene ralized anxiety disorder 01/22/2019 N18.6 End stage renal disease 01/22/2019 Z01.818 En counter for other preprocedural examination 01/22/2019 Z99.2 Depe ndence on renal dialysis 02/21/2019 TYLER DO, DREW L Ot F41.9 ANXIETY DISORDER, UNSPECIFIED 02/21/2019 TYLER DO, DREW L Ot L03.1 16 CELLULITIS OF LEFT LOWER LIMB 02/21/2019 TYLER DO, DREW L Ot M79.6 72 PAIN IN LEFT FOOT 02/21/2019 TYLER DO, DREW L Ot N18.6 END STAGE RENAL DISEASE 02/21/2019 TYLER DO, DREW L Ot Z88.2 ALLERGY STATUS TO SULFONAMIDES STATUS 02/21/2019 TYLER DO, DREW L Ot Z88.8 ALLERGY STATUS TO OTH DRUG/MEDS/BIOL SUB 02/21/2019 TYLER DO, DREW L Ot Z99.2 DEPENDENCE ON RENAL DIALYSIS 02/22/2019 MELVINA VALENCIA MD, Ot D63.8 ANEMIA IN OTHER CHRONIC DISEASES CLASSIF 02/22/2019 MELVINA VALENCIA MD, Ot F41.9 ANXIETY DISORDER, UNSPECIFIED 02/22/2019 MELVINA VALENCIA MD Ot I95.9 HYPOTENSION, UNSPECIFIED 02/22/2019 MELVINA VALENCIA MD Ot L03.1 16 CELLULITIS OF LEFT LOWER LIMB 02/22/2019 MELVINA VALENCIA MD Ot N18.6 END STAGE RENAL DISEASE 02/22/2019 MELVINA VALENCIA MD Ot R55 SYNCOPE AND COLLAPSE 02/22/2019 MELVINA VALENCIA MD Ot R79.8 9 OTHER SPECIFIED ABNORMAL FINDINGS OF BLO 02/22/2019 MELVINA VALENCIA MD Ot Z87.8 91 PERSONAL HISTORY OF NICOTINE DEPENDENCE 02/22/2019 MELVINA VALENCIA MD Ot Z88.2 ALLERGY STATUS TO SULFONAMIDES STATUS 02/22/2019 MELVINA VALENCIA MD Ot Z88.8 ALLERGY STATUS TO OTH DRUG/MEDS/BIOL SUB 02/22/2019 MELVINA VALENCIA MD Ot Z94.0 KIDNEY TRANSPLANT STATUS 02/22/2019 MELVINA VALENCIA MD Ot Z99.2 DEPENDENCE ON RENAL DIALYSIS 02/25/2019 TYLER DO, DREW L Ot F41.9 ANXIETY DISORDER, UNSPECIFIED 02/25/2019 TYLER DO, DREW L Ot L03.1 16 CELLULITIS OF LEFT LOWER LIMB 02/25/2019 TYLER DO, DREW L Ot M79.6 72 PAIN IN LEFT FOOT 02/25/2019 TYLER DO, [...] UNSPECIFIED 03/03/2019 ANNABEL MOROCHO MD Ot 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 03/03/2019 ANNABEL MOROCHO MD Ot Z87.891 PERSONAL HISTORY OF NICOTINE DEPENDENCE 03/03/2019 ANNABEL MOROCHO MD, Ot Z88.2 ALLERGY STATUS TO SULFONAMIDES STATUS 03/03/2019 ANNABEL MOROCHO MD, Ot Z88.8 ALLERGY STATUS TO OTH DRUG/MEDS/BIOL SUB 03/03/2019 ANNABEL MOROCHO MD, Ot Z94.0 KIDNEY TRANSPLANT STATUS 03/03/2019 ANNABEL MOROCHO MD, Ot Z99.2 DEPENDENCE ON [...] UNSPECIFIED 03/06/2019 ANNABEL MOROCHO MD, Ot Z79.01 LONG-TERM (CURRENT) USE OF ANTICOAGULANT 03/06/2019 ANNABEL MOROCHO MD, Ot Z87.891 PERSONAL HISTORY OF NICOTINE DEPENDENCE 03/06/2019 ANNABEL MOROCHO MD, Ot Z88.2 ALLERGY STATUS TO SULFONAMIDES STATUS 03/06/2019 ANNABEL MOROCHO MD, Ot Z88.8 ALLERGY STATUS TO OTH DRUG/MEDS/BIOL SUB 03/06/2019 ANNABEL MOROCHO MD, Ot Z94.0 KIDNEY TRANSPLANT STATUS 03/06/2019 ANNABEL MOROCHO MD, Ot Z99.2 DEPENDENCE ON RENAL DIALYSIS 05/08/2019 ROSA CAO N18.6 End stage renal disease 05/08/2019 ROSA CAO Z01.818 Encounter for other preprocedural examination 05/08/2019 ROSA CAO Z86.73 Personal history of transient ischemic attack (TIA), and cerebral infarction without residual deficits 05/08/2019 ROSA CAO Z99.2 Dependence on renal dialysis 05/08/2019 ROSA CAO N18.6 End stage renal disease 05/08/2019 ROSA CAO 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, implants and grafts, sequela 05/08/2019 ROSA CAO Z01.818 Encounter for other preprocedural examination 05/08/2019 ROSA CAO Z86.73 Personal history of transient ischemic attack (TIA), and cerebral infarction without residual deficits 05/08/2019 ROSA CAO Z99.2 Dependence on renal dialysis 05/08/2019 ROSA CAO N18.6 End stage renal disease 05/08/2019 ROSA CAO 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, implants and grafts, sequela 05/08/2019 ROSA CAO Z01.818 Encounter for other preprocedural examination 05/08/2019 ROSA CAO Z86.73 Personal history of transient ischemic attack (TIA), and cerebral infarction without residual deficits 05/08/2019 ROSA CAO Z99.2 Dependence on renal dialysis 05/29/2019 REJI MAYER DO, Ot 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, UNSPECIFI 05/29/2019 REJI MAYER DO, Ot F41.9 ANXIETY DISORDER, UNSPECIFIED 05/29/2019 REJI MAYER DO, Ot K52.9 NONINFECTIVE GASTROENTERITIS AND COLITIS 05/29/2019 REJI MAYER DO, Ot N18.6 END STAGE RENAL DISEASE 05/29/2019 REJI MAYER DO, Ot R10.84 GENERALIZED ABDOMINAL PAIN 05/29/2019 REJI MAYER DO, Ot Z87.891 PERSONAL HISTORY OF NICOTINE DEPENDENCE 05/29/2019 REJI MAYER DO, Ot Z88.1 ALLERGY STATUS TO OTHER ANTIBIOTIC AGENT 05/29/2019 REJI MAYER DO, Ot Z88.2 ALLERGY STATUS TO SULFONAMIDES STATUS 05/29/2019 REJI MAYER DO, Ot Z88.8 ALLERGY STATUS TO OTH DRUG/MEDS/BIOL SUB 05/29/2019 REJI MAYER DO, Ot Z94.0 KIDNEY TRANSPLANT STATUS 05/29/2019 REJI MAYER DO, Ot Z99.2 DEPENDENCE ON RENAL DIALYSIS 06/04/2019 REJI MAYER DO, Ot 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, UNSPECIFI 06/04/2019 REJI MAYER DO, Ot F41.9 ANXIETY DISORDER, UNSPECIFIED 06/04/2019 LEYLA DO, REJI D Ot K52.9 NONINFECTIVE GASTROENTERITIS AND COLITIS 06/04/2019 REJI MAYER DO Ot N18.6 END STAGE RENAL DISEASE 06/04/2019 REJI MAYER DO Ot R10.84 GENERALIZED ABDOMINAL PAIN 06/04/2019 REJI MAYER DO Ot Z87.891 PERSONAL HISTORY OF NICOTINE DEPENDENCE 06/04/2019 REJI MAYER DO Ot Z88.1 ALLERGY STATUS TO OTHER ANTIBIOTIC AGENT 06/04/2019 REJI MAYER DO Ot Z88.2 ALLERGY STATUS TO SULFONAMIDES STATUS 06/04/2019 REJI MAYER DO Ot Z88.8 ALLERGY STATUS TO OTH DRUG/MEDS/BIOL SUB 06/04/2019 REJI MAYER DO Ot Z94.0 KIDNEY TRANSPLANT STATUS 06/04/2019 REJI MAYER DO Ot Z99.2 DEPENDENCE ON RENAL DIALYSIS 06/06/2019 REJI MAYER DO Ot 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, UNSPECIFI 06/06/2019 REJI MAYER DO Ot F41.9 ANXIETY DISORDER, UNSPECIFIED 06/06/2019 REJI MAYER DO Ot K52.9 NONINFECTIVE GASTROENTERITIS AND COLITIS 06/06/2019 REJI MAYER DO Ot N18.6 END STAGE RENAL DISEASE 06/06/2019 REJI MAYER DO Ot R10.84 GENERALIZED ABDOMINAL PAIN 06/06/2019 REJI MAYER DO Ot Z87.891 PERSONAL HISTORY OF NICOTINE DEPENDENCE 06/06/2019 REJI MAYER DO Ot Z88.1 ALLERGY STATUS TO OTHER ANTIBIOTIC AGENT 06/06/2019 REJI MAYER DO Ot Z88.2 ALLERGY STATUS TO SULFONAMIDES STATUS 06/06/2019 REJI MAYER DO Ot Z88.8 ALLERGY STATUS TO OTH DRUG/MEDS/BIOL SUB 06/06/2019 REJI MAYER DO Ot Z94.0 KIDNEY TRANSPLANT STATUS 06/06/2019 REJI MAYER DO Ot Z99.2 DEPENDENCE ON RENAL DIALYSIS 08/07/2019 SELENA TROY MD Ot F41. 9 ANXIETY DISORDER, UNSPECIFIED 08/07/2019 SELENA TROY MD Ot I95. 1 ORTHOSTATIC HYPOTENSION 08/07/2019 SELENA TROY MD Ot M25.572 PAIN IN LEFT ANKLE AND JOINTS OF LEFT FO 08/07/2019 SELENA TROY MD Ot S82.832A OTH FRACTURE OF UPPER AND LOWER END OF L 08/07/2019 SELENA TROY MD Ot W01.0XXA FALL SAME LEV FROM SLIP/TRIP W/O STRIKE 08/07/2019 SELENA TROY MD Ot X50.1XXA OVEREXERTION FROM PROLONGED STATIC OR AW 08/07/2019 SELENA TROY MD Ot Z86. 39 PERSONAL HISTORY OF ENDO, NUTRITIONAL AN 08/07/2019 SELENA TROY MD Ot Z87.891 PERSONAL HISTORY OF NICOTINE DEPENDENCE 08/07/2019 SELENA TROY MD Ot Z88. 1 ALLERGY STATUS TO OTHER ANTIBIOTIC AGENT 08/07/2019 SELENA TROY MD Ot Z88. 2 ALLERGY STATUS TO SULFONAMIDES STATUS 08/07/2019 SELENA TROY MD Ot Z88. 8 ALLERGY STATUS TO OT DRUG/MEDS/BIOL SUB 08/07/2019 SELENA TROY MD Ot Z94. 0 KIDNEY TRANSPLANT STATUS 08/07/2019 SELENA TROY MD Ot Z99. 2 DEPENDENCE ON RENAL DIALYSIS 08/09/2019 SELENA TROY MD Ot F41. 9 ANXIETY DISORDER, UNSPECIFIED 08/09/2019 SELENA TROY MD Ot I95. 1 ORTHOSTATIC HYPOTENSION 08/09/2019 SELENA TROY MD Ot M25.572 PAIN IN LEFT ANKLE AND JOINTS OF LEFT FO 08/09/2019 SELENA TROY MD Ot S82.832A OTH FRACTURE OF UPPER AND LOWER END OF L 08/09/2019 SELENA TROY MD Ot W01.0XXA FALL SAME LEV FROM SLIP/TRIP W/O STRIKE 08/09/2019 SELENA TROY MD Ot X50.1XXA OVEREXERTION FROM PROLONGED STATIC OR AW 08/09/2019 SELENA TROY MD Ot Z86. 39 PERSONAL HISTORY OF ENDO, NUTRITIONAL AN 08/09/2019 SELENA TROY MD Ot Z87.891 PERSONAL HISTORY OF NICOTINE DEPENDENCE 08/09/2019 SELENA TROY MD Ot Z88. 1 ALLERGY STATUS TO OTHER ANTIBIOTIC AGENT 08/09/2019 SELENA TROY MD Ot Z88. 2 ALLERGY STATUS TO SULFONAMIDES STATUS 08/09/2019 SELENA TROY MD Ot Z88. 8 ALLERGY STATUS TO OTH DRUG/MEDS/BIOL SUB 08/09/2019 SELENA TROY MD Ot Z94. 0 KIDNEY TRANSPLANT STATUS 08/09/2019 SELENA TROY MD Ot Z99. 2 DEPENDENCE ON RENAL DIALYSIS 08/09/2019 LALO VALDES MD Ot E87. 2 ACIDOSIS 08/09/2019 LALO VALDES MD, Ot F41. 9 ANXIETY DISORDER, UNSPECIFIED 08/09/2019 LALO VALDES MD Ot I95. 9 HYPOTENSION, UNSPECIFIED 08/09/2019 LALO VALDES MD, Ot N18. 6 END STAGE RENAL DISEASE 08/09/2019 LALO VALDES MD, Ot R55 SYNCOPE AND COLLAPSE 08/09/2019 LALO VALDES MD, Ot T40.601A POISONING BY UNSP NARCOTICS, ACCIDENTAL, 08/09/2019 LALO VALDES MD, Ot Z79. 01 LONG-TERM (CURRENT) USE OF ANTICOAGULANT 08/09/2019 LALO VALDES MD, Ot Z86. 39 PERSONAL HISTORY OF ENDO, NUTRITIONAL AN 08/09/2019 LALO VALDES MD Ot Z87.891 PERSONAL HISTORY OF NICOTINE DEPENDENCE 08/09/2019 LALO VALDES MD, Ot Z88. 1 ALLERGY STATUS TO OTHER ANTIBIOTIC AGENT 08/09/2019 LALO VALDES MD, Ot Z88. 2 ALLERGY STATUS TO SULFONAMIDES STATUS 08/09/2019 LALO VALDES MD, Ot Z88. 8 ALLERGY STATUS TO OTH DRUG/MEDS/BIOL SUB 08/09/2019 LALO VALDES MD Ot Z94. 0 KIDNEY TRANSPLANT STATUS 08/09/2019 LALO VALDES MD Ot Z99. 2 DEPENDENCE ON RENAL DIALYSIS 08/13/2019 LALO VALDES MD Ot E87. 2 ACIDOSIS 08/13/2019 LALO VALDES MD, Ot F41. 9 ANXIETY DISORDER, UNSPECIFIED 08/13/2019 LALO VALDES MD Ot I95. 9 HYPOTENSION, UNSPECIFIED 08/13/2019 LALO VADLES MD, Ot N18. 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 01 LONG-TERM (CURRENT) USE OF ANTICOAGULANT 08/13/2019 LALO VALDES MD Ot Z86. 39 PERSONAL HISTORY OF ENDO, NUTRITIONAL AN 08/13/2019 LALO VALDES MD, Ot Z87.891 PERSONAL HISTORY OF NICOTINE DEPENDENCE 08/13/2019 LALO VALDES MD, Ot Z88. 1 ALLERGY STATUS TO OTHER ANTIBIOTIC AGENT 08/13/2019 LALO VALDES MD Ot Z88. 2 ALLERGY STATUS TO SULFONAMIDES STATUS 08/13/2019 LALO VALDES MD Ot Z88. 8 ALLERGY STATUS TO OTH DRUG/MEDS/BIOL SUB 08/13/2019 LALO VALDES MD Ot Z94. 0 KIDNEY TRANSPLANT STATUS 08/13/2019 LALO VALDES MD, Ot Z99. 2 DEPENDENCE ON RENAL DIALYSIS 08/15/2019 LALO VALDES MD Ot E87. 2 ACIDOSIS 08/15/2019 LALO VALDES MD Ot F41. 9 ANXIETY DISORDER, UNSPECIFIED 08/15/2019 LALO VALDES MD Ot I95. 9 HYPOTENSION, UNSPECIFIED 08/15/2019 LALO VALDES MD, Ot N18. 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 39 PERSONAL HISTORY OF ENDO, NUTRITIONAL AN 08/15/2019 LALO VALDES MD Ot Z87.891 PERSONAL HISTORY OF NICOTINE DEPENDENCE 08/15/2019 LALO VALDES MD Ot Z88. 1 ALLERGY STATUS TO OTHER ANTIBIOTIC AGENT 08/15/2019 LALO VALDES MD, Ot Z88. 2 ALLERGY STATUS TO SULFONAMIDES STATUS 08/15/2019 LALO VALDES MD Ot Z88. 8 ALLERGY STATUS TO OTH DRUG/MEDS/BIOL SUB 08/15/2019 LALO VALDES MD Ot Z94. 0 KIDNEY TRANSPLANT STATUS 08/15/2019 LALO VALDES MD Ot Z99. 2 DEPENDENCE ON RENAL DIALYSIS 12/24/2019 THIERNO BLANCOHeathZAK BLANCO I95. 89 Other hypotension 12/24/2019 THIERNO BLANCOHeathZAK FRANCIS N13. 9 Obstructive and reflux uropathy, unspecified 12/24/2019 THIERNO BLANCOHeathZAK FRANCIS N18. 6 End stage renal disease 12/24/2019 THIERNO BLANCOHeathZAK FRANCIS Z01. 818 Encounter for other preprocedural examination 12/24/2019 THIERNO BLANCOHeathZAK BLANCO Z86. 73 Personal history of transient ischemic attack (TIA), and cerebral infarction without residual deficits 12/24/2019 FRANCISTHIERNORUDDY BLANCO Z94. 0 Kidney transplant status 12/24/2019 THIERNO BLANCOHeathZAK BLANCO Z99. 2 Dependence on renal dialysis 12/24/2019 Z01.818 En counter for other preprocedural examination 03/18/2020 THIERNO BLANCOHeathZAK FRANCIS Z01. 818 Encounter for other preprocedural examination 03/18/2020 THIERNO BLANCOHeathZAK FRANCIS Z88. 9 Allergy status to unspecified drugs, medicaments and biological substances status 03/18/2020 FRANCISTHIERNOHeathZAK FRANCIS Z01. 818 Encounter for other preprocedural examination 03/18/2020 THIERNO BLANCOHeathZAK BLANCO Z88. 9 Allergy status to unspecified drugs, medicaments and biological substances status 03/18/2020 Z01.818 En counter for other preprocedural examination 03/18/2020 Z88.9 Blake rgy status to unspecified drugs, medicaments and biological substances status Procedures Code Description Performed By Per formed On REF91 AMB REFERRAL TO PSYCHIATRY 01/21/2019 REF33 AMB REFERRAL TO HEMATOLOGY / ONCOLOGY 05/08/2019 [id number] TY PE AND SCREEN 12/24/2019 [id number] AL ANINE AMINOTRANSFERASE 12/24/2019 [id number] AL KALINE PHOSPHATASE 12/24/2019 BBV6001 PARTATE AMINOTRANSFERASE 12/24/2019 [id number] BI LIRUBIN DIRECT 12/24/2019 [id number] BI LIRUBIN TOTAL 12/24/2019 DLQ2931 CMV IGG 12/24/2019 [id number] CB C AND DIFF (MANUAL DIFF IF NECESSARY) 12/24/[id number] ROBERTS OF ABUSE, BLOOD 12/24/2019 [id number] HE MOGLOBIN A1C 12/24/2019 BNM2523 HE PATITIS B CORETOTAL ANTIBODY 12/24/2019 EWG2896 HE PATITIS B SURFACE ANTIBODY 12/24/2019 [id number] HE PATITIS B SURFACE ANTIGEN 12/24/2019 GUQ9272 HE PATITIS C ANTIBODY 12/24/2019 STV8499 HL A ANTIBODY SCREEN 12/24/2019 [id number] LI PID PANEL 12/24/2019 RDS8776 PA RATHYROID HORMONE INTACT 12/24/2019 [id number] AK OTEIN TOTAL SERUM 12/24/2019 ROE9983 AK OTHROMBIN TIME/INR 12/24/2019 OIP7580 RA PID PLASMA REAGIN 12/24/2019 YNE0499 RE NAL PANEL 12/24/2019 QQH7827 T4 FREE 12/24/2019 [id number] TH YROID STIMULATING HORMONE 12/24/2019 [id number] AB ORH TYPE 12/24/2019 DIT1495 AN TIBODY SCREEN 12/24/2019 GGE4612 NI COTINE AND METABOLITE 12/24/2019 HGD0841 HS V TYPE 1 AND 2-SPECIFIC IGG 12/24/2019 [id number] HI V AG/SAILAJA 12/24/2019 DCR8417 QU ANTIFERON TB GOLD PLUS 12/24/2019 SWE1292 XR PANOREX ORTHOPANTOGRAM 03/18/2020 PRM1238 G- 6-PD (GLU-6-PHOS DEHYDROGENASE) 03/18/2020 IOW5414 NI COTINE AND METABOLITE 03/18/2020 Results Test Result Range Complete blood count (CBC) with automate d white blood cell (WBC) differential - 02/21/19 12:10 Blood leukocytes automated count (number/volume) 9.5 10*3/uL 4.3-11.0 Blood erythrocytes automated count (number/volume) 4.08 10*6/uL 4.35-5.85 Venous blood hemoglobin measurement (mass/volume) 14.2 g/dL 13.3-17.7 Blood hematocrit (volume fraction) 44 % 40-54 Automated erythrocyte mean corpuscular volume 107 [foz_us] 80-99 Automated erythrocyte mean corpuscular h emoglobin (mass per erythrocyte) 35 pg 25-34 Automated erythrocyte mean corpuscular h emoglobin concentration measurement (mass/volume) 32 g/dL 32-36 Automated erythrocyte distribution width ratio 16. 1 % 10.0- 14.5 Automated blood platelet count [...] 10*3 1.0-4.0 Blood monocytes automated count (number/volume) 0. 9 10*3 0.0-1.0 Automated eosinophil count 0.1 10*3/uL 0 .0-0.3 Automated blood basophil count (count/volume) 0.0 10*3/uL 0.0-0.1 Whole blood basic metabolic panel - 02/11 12/01 12:10 Serum or plasma sodium measurement (moles/volume) 135 mmol/L 135-145 Serum or plasma potassium measurement (moles/volume) 5.1 mmol/L 3.6-5.0 Serum or plasma chloride measurement (moles/volume) 84 mmol/L 98-107 Carbon dioxide 26 mmol/L 21-32 Serum or plasma anion gap determination (moles/volume) 25 mmol/L 5-14 Serum or plasma urea nitrogen measurement (mass/volume ) 55 mg/dL 7-18 Serum or plasma creatinine measurement (mass/volume) 12.60 mg/dL 0.60-1.30 Serum or plasma urea nitrogen/creatinine mass ratio 4 NRG Serum or plasma creatinine measurement w ith calculation of estimated glomerular filtration rate 5 NRG Serum or plasma glucose measurement (mass/volume) 92 mg/dL 70-105 Serum or plasma calcium measurement (mass/volume) 9.6 mg/dL 8.5-10.1 Blood manual differential performed dete ction - 02/21/19 12:10 Blood monocytes/100 leukocytes 8 [...] NG NRG Complete blood count (CBC) with automate d white blood cell (WBC) differential - 02/22/19 17:18 Blood leukocytes automated count (number/volume) 6.1 10*3/uL 4.3-11.0 Blood erythrocytes automated count (number/volume) 3.71 10*6/uL 4.35-5.85 Venous blood hemoglobin measurement (mass/volume) 13.1 g/dL 13.3-17.7 Blood hematocrit (volume fraction) 41 % 40-54 Automated erythrocyte mean corpuscular volume 110 [foz_us] 80-99 Automated erythrocyte mean corpuscular h emoglobin (mass per erythrocyte) 35 pg 25-34 Automated erythrocyte mean corpuscular h emoglobin concentration measurement (mass/volume) 32 g/dL 32-36 Automated erythrocyte distribution width ratio 16. 0 % 10.0- 14.5 Automated blood platelet count [...] 10*3 1.0-4.0 Blood monocytes automated count (number/volume) 0. 2 10*3 0.0-1.0 Automated eosinophil count 0.0 10*3/uL 0 .0-0.3 Automated blood basophil count (count/volume) 0.0 10*3/uL 0.0-0.1 Blood manual differential performed dete ction - 02/22/19 17:18 Blood monocytes/100 leukocytes 2 % NRG Manual blood segmented neutrophils/100 leukocytes 91 % NRG Blood band neutrophils/100 leukocytes 2 % NRG Manual blood lymphocytes/100 leukocytes 3 % NRG Manual eosinophils/100 leukocytes in nose 1 % NRG Manual blood basophils/100 leukocytes 1 % NRG Blood macrocytes detection by light microscopy MAR KED NRG Comprehensive metabolic panel - 02/22/19 17:18 Serum or plasma sodium measurement (moles/volume) 135 mmol/L 135-145 Serum or plasma potassium measurement (moles/volume) 4.9 mmol/L 3.6-5.0 Serum or plasma chloride measurement (moles/volume) 89 mmol/L 98-107 Carbon dioxide 19 mmol/L 21-32 Serum or plasma anion gap determination (moles/volume) 27 mmol/L 5-14 Serum or plasma urea nitrogen measurement (mass/volume ) 55 mg/dL 7-18 Serum or plasma creatinine measurement (mass/volume) 12.12 mg/dL 0.60-1.30 Serum or plasma urea nitrogen/creatinine mass ratio 5 NRG Serum or plasma creatinine measurement w ith calculation of estimated glomerular filtration rate 5 NRG Serum or plasma glucose measurement (mass/volume) 84 mg/dL 70-105 Serum or plasma calcium measurement (mass/volume) 8.7 mg/dL 8.5-10.1 Serum or plasma total bilirubin measurement (mass/volu me) 0.4 mg/dL 0.1-1.0 Serum or plasma alkaline phosphatase ines surement (enzymatic activity/volume) 98 U/L 40-136 Serum or plasma aspartate aminotransfera se measurement (enzymatic activity/volume) 20 U/L 5-34 Serum [...] <=15 Serum or plasma C reactive protein measu rement (mass/volume) - 02/22/19 17:18 Serum or plasma C reactive protein measurement (mass/v olume) 18.08 mg/dL 0.00-0.50 Complete blood count (CBC) with automate d white blood cell (WBC) differential - 03/03/19 21:47 Blood leukocytes automated count (number/volume) 8.2 10*3/uL 4.3-11.0 Blood erythrocytes automated count (number/volume) 1.65 10*6/uL 4.35-5.85 Venous blood hemoglobin measurement (mass/volume) 5.7 g/dL 13.3-17.7 Blood hematocrit (volume fraction) 18 % 40-54 Automated erythrocyte mean corpuscular volume 109 [foz_us] 80-99 Automated erythrocyte mean corpuscular h emoglobin (mass per erythrocyte) 35 pg 25-34 Automated erythrocyte mean corpuscular h emoglobin concentration measurement (mass/volume) 32 g/dL 32-36 Automated erythrocyte distribution width ratio 16. 1 % 10.0- 14.5 Automated blood platelet count [...] 10*3 1.0-4.0 Blood monocytes automated count (number/volume) 0. 3 10*3 0.0-1.0 Automated eosinophil count 0.1 10*3/uL 0 .0-0.3 Automated blood basophil count (count/volume) 0.0 10*3/uL 0.0-0.1 PT panel in platelet poor plasma by coag ulation assay - 03/03/19 21:47 Prothrombin time (PT) in platelet poor plasma by coagu lation assay 43.8 s 12.2-14.7 INR in platelet poor plasma or blood by coagulation as say 4.4 0.8-1.4 Activated partial thromboplastin time (a PTT) in platelet poor plasma bycoagulation assay - 03/03/19 21:47 Activated partial thromboplastin time (a PTT) in platelet poor plasma bycoagulation assay 57 s 24-35 Comprehensive metabolic panel - 03/03/19 21:47 Serum or plasma sodium measurement (moles/volume) 133 mmol/L 135-145 Serum or plasma potassium measurement (moles/volume) 5.4 mmol/L 3.6-5.0 Serum or plasma chloride measurement (moles/volume) 87 mmol/L 98-107 Carbon dioxide 24 mmol/L 21-32 Serum or plasma anion gap determination (moles/volume) 22 mmol/L 5-14 Serum or plasma urea nitrogen measurement (mass/volume ) 134 mg/dL 7-18 Serum or plasma creatinine measurement (mass/volume) 11.74 mg/dL 0.60-1.30 Serum or plasma urea nitrogen/creatinine mass ratio 11 NRG Serum or plasma creatinine measurement w ith calculation of estimated glomerular filtration rate 5 NRG Serum or plasma glucose measurement (mass/volume) 109 mg/dL 70-105 Serum or plasma calcium measurement (mass/volume) 11.3 mg/dL 8.5-10.1 Serum or plasma total bilirubin measurement (mass/volu me) 0.2 mg/dL 0.1-1.0 Serum or plasma alkaline phosphatase ines surement (enzymatic activity/volume) 62 U/L 40-136 Serum or plasma aspartate aminotransfera se measurement (enzymatic activity/volume) 12 U/L 5-34 Serum [...] <=15 Stool occult blood screen - 03/03/19 22: 05 Stool gastrointestinal hemoglobin detection POSITI VE NEGATIVE PT/INR - 03/26/19 14:00 INR 1.7 NRG PT 16.8 sec 9.0-11.5 Complete blood count (CBC) with automate d white blood cell (WBC) differential - 05/29/19 09:40 Blood leukocytes automated count (number/volume) 9.7 10*3/uL 4.3-11.0 Blood erythrocytes automated count (number/volume) 5.15 10*6/uL 4.35-5.85 Venous blood hemoglobin measurement (mass/volume) 16.6 g/dL 13.3-17.7 Blood hematocrit (volume fraction) 52 % 40-54 Automated erythrocyte mean corpuscular volume 101 [foz_us] 80-99 Automated erythrocyte mean corpuscular h emoglobin (mass per erythrocyte) 32 pg 25-34 Automated erythrocyte mean corpuscular h emoglobin concentration measurement (mass/volume) 32 g/dL 32-36 Automated erythrocyte distribution width ratio 16. 3 % 10.0- 14.5 Automated blood platelet count (count/volume) 191 10*3/uL 130-400 Automated blood platelet mean volume measurement 11.3 [foz_us] 7.4-10.4 Automated blood neutrophils/100 leukocytes 84 % 42-75 Automated blood lymphocytes/100 leukocytes 9 % 12-44 Blood monocytes/100 leukocytes 5 % 0-12 Automated blood eosinophils/100 leukocytes 1 % 0-10 Automated blood basophils/100 leukocytes 0 % 0-10 Blood neutrophils automated count (number/volume) 8.2 10*3 1.8-7.8 Blood lymphocytes automated count (number/volume) 0.9 10*3 1.0-4.0 Blood monocytes automated count (number/volume) 0. 5 10*3 0.0-1.0 Automated eosinophil count 0.1 10*3/uL 0 .0-0.3 Automated blood basophil count (count/volume) 0.0 10*3/uL 0.0-0.1 Comprehensive metabolic panel - 05/29/19 10:15 Serum or plasma sodium measurement (moles/volume) 138 mmol/L 135-145 Serum or plasma potassium measurement (moles/volume) 5.8 mmol/L 3.6-5.0 Serum or plasma chloride measurement (moles/volume) 89 mmol/L 98-107 Carbon dioxide 23 mmol/L 21-32 Serum or plasma anion gap determination (moles/volume) 26 mmol/L 5-14 Serum or plasma urea nitrogen measurement (mass/volume ) 57 mg/dL 7-18 Serum or plasma creatinine measurement (mass/volume) 10.06 mg/dL 0.60-1.30 Serum or plasma urea nitrogen/creatinine mass ratio 6 NRG Serum or plasma creatinine measurement w ith calculation of estimated glomerular filtration rate 6 NRG Serum or plasma glucose measurement (mass/volume) 103 mg/dL 70-105 Serum or plasma calcium measurement (mass/volume) 9.0 mg/dL 8.5-10.1 Serum or plasma total bilirubin measurement (mass/volu me) 0.3 mg/dL 0.1-1.0 Serum or plasma alkaline phosphatase ines surement (enzymatic activity/volume) 134 U/L 40-136 Serum or plasma aspartate aminotransfera se measurement (enzymatic activity/volume) 20 U/L 5-34 Serum or plasma alanine aminotransferase measurement (enzymatic activity/volume) 17 U/L 0-55 Serum or plasma protein measurement (mass/volume) 8.9 g/dL 6.4-8.2 Serum or plasma albumin measurement (mass/volume) 5.3 g/dL 3.2-4.5 Lipase - 05/29/19 10:15 Lipase 41 U/L 8-78 TESTOSTERONE, TOTAL - 07/17/19 15:08 TESTOSTERONE, TOTAL, MALES (ADULT), IA 250 ng/dL 250-827 Comprehensive metabolic panel - 08/09/19 09:37 Serum or plasma sodium measurement (moles/volume) 140 mmol/L 135-145 Serum or plasma potassium measurement (moles/volume) 4.5 mmol/L 3.6-5.0 Serum or plasma chloride measurement (moles/volume) 97 mmol/L 98-107 Carbon dioxide 23 mmol/L 21-32 Serum or plasma anion gap determination (moles/volume) 20 mmol/L 5-14 Serum or plasma urea nitrogen measurement (mass/volume ) 37 mg/dL 7-18 Serum or plasma creatinine measurement (mass/volume) 8.67 mg/dL 0.60-1.30 Serum or plasma urea nitrogen/creatinine mass ratio 4 NRG Serum or plasma creatinine measurement w ith calculation of estimated glomerular filtration rate 7 NRG Serum or plasma glucose measurement (mass/volume) 166 mg/dL 70-105 Serum or plasma calcium measurement (mass/volume) 9.5 mg/dL 8.5-10.1 Serum or plasma total bilirubin measurement (mass/volu me) 0.4 mg/dL 0.1-1.0 Serum or plasma alkaline phosphatase ines surement (enzymatic activity/volume) 129 U/L 40-136 Serum or plasma aspartate aminotransfera se measurement (enzymatic activity/volume) 34 U/L 5-34 Serum or plasma alanine aminotransferase measurement (enzymatic activity/volume) 19 U/L 0-55 Serum or plasma protein measurement (mass/volume) 8.3 g/dL 6.4-8.2 Serum or plasma albumin measurement (mass/volume) 4.9 g/dL 3.2-4.5 Magnesium - 08/09/19 09:37 Magnesium 3.0 mg/dL 1.6-2.4 TROPONIN I FS - 08/09/19 09:37 TROPONIN I FS < 0.30 <0.30 Complete blood count (CBC) with automate d white blood cell (WBC) differential - 08/09/19 09:37 Blood leukocytes automated count (number/volume) 10.9 10*3/uL 4.3-11.0 Blood erythrocytes automated count (number/volume) 4.53 10*6/uL 4.35-5.85 Venous blood hemoglobin measurement (mass/volume) 15.5 g/dL 13.3-17.7 Blood hematocrit (volume fraction) 49 % 40-54 Automated erythrocyte mean corpuscular volume 108 [foz_us] 80-99 Automated erythrocyte mean corpuscular h emoglobin (mass per erythrocyte) 34 pg 25-34 Automated erythrocyte mean corpuscular h emoglobin concentration measurement (mass/volume) 32 g/dL 32-36 Automated erythrocyte distribution width ratio 15. 6 % 10.0- 14.5 Automated blood platelet count (count/volume) 167 10*3/uL 130-400 Automated blood platelet mean volume measurement 11.0 [foz_us] 7.4-10.4 Automated blood neutrophils/100 leukocytes 88 % 42-75 Automated blood lymphocytes/100 leukocytes 9 % 12-44 Blood monocytes/100 leukocytes 2 % 0-12 Automated blood eosinophils/100 leukocytes 1 % 0-10 Automated blood basophils/100 leukocytes 0 % 0-10 Blood neutrophils automated count (number/volume) 9.5 10*3 1.8-7.8 Blood lymphocytes automated count (number/volume) 1.0 10*3 1.0-4.0 Blood monocytes automated count (number/volume) 0. 2 10*3 0.0-1.0 Automated eosinophil count 0.1 10*3/uL 0 .0-0.3 Automated blood basophil count (count/volume) 0.0 10*3/uL 0.0-0.1 Manual absolute plasma cell count - 07/15 05/31 09:37 Blood monocytes/100 leukocytes 3 % NRG Manual blood segmented neutrophils/100 leukocytes 80 % NRG Blood band neutrophils/100 leukocytes 2 % NRG Manual blood lymphocytes/100 leukocytes 14 % NRG Manual eosinophils/100 leukocytes in nose 1 % NRG Manual blood basophils/100 leukocytes 0 % NRG Blood lactic acid measurement (moles/vol ume) - 08/09/19 10:20 Blood lactic acid measurement (moles/volume) 3.02 mmol/L 0.50-2.00 Bacterial blood culture - 08/09/19 10:20 Bacterial blood culture NG NRG Bacterial blood culture - 08/09/19 11:33 Bacterial blood culture NG NRG Serum or plasma lactate measurement (mol es/volume) - 08/09/19 12:36 Serum or plasma lactate measurement (moles/volume) 1.57 mmol/L 0.50-2.00 PROTHROMBIN TIME/INR - 12/24/19 15:19 INR 2.4 TX 0.8-1.2 Protime 25.4 11.4-15.0 CBC AND DIFF (MANUAL DIFF IF NECESSARY) - 12/24/19 15:19 WBC 4.55 4.00-11.00 Hematocrit 41 40-50 Hemoglobin 12.9 13.0-17.0 MCH 33 27-34 MCHC 32 32-36 MCV 104 80-99 MPV 11.8 9.4-12.3 Platelet Count 211 140-400 RBC 3.92 4.31-5.84 RDW 15.0 11.5-14.5 NUCLEATED RBCS 0 0-0 % NEUTROPHILS 71 45-78 %LYMPHOCYTES 21 15-47 %MONOCYTES 6 0-12 %EOSINOPHILS 1 0-7 %BASOPHILS 1 0-2 % IMM GRANS 0 0-1 # GRANULOCYTES 3.23 1.70-6.80 # LYMPHOCYTES 0.94 1.00-3.30 # MONOCYTES 0.29 0.20-0.90 # EOSINOPHILS 0.06 0.00-0.40 # BASOPHILS 0.03 0.00-0.10 PARATHYROID HORMONE INTACT - 12/24/19 15 :19 Parathyroid Hormone Intact 589 10- 65 HLA ANTIBODY SCREEN - 12/24/19 15:19 HLA ANTIBODY I SEE NOTE 0-100 HLA ANTIBODY II SEE NOTE 0-100 HEPATITIS C ANTIBODY - 02/11/20 15:19 HEPATITIS C AB Non-reactive Non-reactiv e HEPATITIS B CORETOTAL ANTIBODY - 0 15:19 HEPATITIS B CORE TOTAL AB Non-reactive Non-reactive HIV AG/SAILAJA - 12/24/19 15:19 HIV AG/SAILAJA Non-reactive Non-reactive HEPATITIS B SURFACE ANTIGEN - 12/24/19 1 5:19 HEPATITIS B SURFACE AG Non-reactive Non -reactive HEPATITIS B SURFACE ANTIBODY - 12/24/19 15:19 HEPATITIS B SURFACE AB Non-reactive Non -reactive HEMOGLOBIN A1C - 12/24/19 15:19 Hemoglobin A1C 4.6 4.0-5.6 ANTIBODY SCREEN - 12/24/19 15:19 Antibody Screen Negative Negative ABORH TYPE - 12/24/19 15:19 ABORH Type O Positive NRG PROTEIN TOTAL SERUM - 12/24/19 15:19 Protein Total Serum 7.1 6.0-8.2 ALKALINE PHOSPHATASE - 12/24/19 15:19 Alkaline Phosphatase 127 42-140 BILIRUBIN TOTAL - 12/24/19 15:19 BILIRUBIN TOTAL 0.3 0.2-1.3 RENAL PANEL - 12/24/19 15:19 Albumin 4.6 3.5-5.0 Blood Urea Nitrogen 35 7-26 Chloride 98 96-112 Carbon Dioxide 27 20-32 Creatinine 9.6 0.6-1.3 Glucose 73 70-100 Potassium 4.7 3.5-5.3 Sodium 143 133-147 Calcium 8.9 8.4-10.5 Anion Gap 18 TX 5-17 Phosphorus 5.4 2.5-4.5 GFR MALE AA 8 60-200 GFR MALE NON-AA 6 60-200 BILIRUBIN DIRECT - 12/24/19 15:19 BILIRUBIN DIRECT 0.0 0.0-0.4 LIPID PANEL - 12/24/19 15:19 HDL Cholesterol 30 40-110 LDL Cholesterol 102 0-99 Triglycerides 209 0-150 CHOLESTEROL 174 100-200 NON-HDL CHOLESTEROL 144 0-130 CHOLESTEROL/HDL RATIO 5.8 TX 0.0-4.5 ALANINE AMINOTRANSFERASE - 12/24/19 15:1 9 Alanine Aminotransferase 16 0-49 ASPARTATE AMINOTRANSFERASE - 12/24/19 15 :19 Aspartate Aminotransferase 26 15- 46 T4 FREE - 12/24/19 15:19 T4 FREE 0.9 0.8-2.2 THYROID STIMULATING HORMONE - 12/24/19 1 5:19 Thyroid Stimulating Hormone 3.58 0. 47-4.68 CMV IGG - 12/24/19 15:19 Cytomegalovirus IgG Antibody <4 0 -3 Cytomegalovirus IgG Antibody Interp Negative Negative RAPID PLASMA REAGIN - 12/24/19 15:19 RPR Non-reactive Non-reactive DRUGS OF ABUSE, BLOOD - 12/24/19 15:19 AMPHETAMINES BLOOD Negative NRG TETRAHYDROCANNABINOL BLOOD Negative NRG COCAINE BLOOD Negative NRG ETHANOL BLOOD Negative NRG OPIATES BLOOD Negative NRG PHENCYCLIDINE BLOOD Negative NRG DRUG SCREEN COMMENT BLOOD phencyclidine 25 ng/mL NRG HSV TYPE 1 AND 2-SPECIFIC IGG - 12/24/19 15:19 HSV 1 IgG Type Specific 42.70 0.00-0 .90 HSV 2 IgG Type Specific <0.91 0.00-0 .90 QUANTIFERON TB GOLD PLUS - 12/24/19 15:1 9 QFT INTERPRETATION Negative Negative NICOTINE AND METABOLITE - 12/24/19 15:19 Cotinine 127.6 NRG Nicotine 4.2 NRG G-6-PD (GLU-6-PHOS DEHYDROGENASE) - 05/02 12:58 G6PD Qualitative Normal Normal NICOTINE AND METABOLITE - 03/18/20 12:58 Cotinine <1.0 NRG Nicotine <1.0 NRG Complete blood count (CBC) with automate d white blood cell (WBC) differential - 04/07/20 17:20 Blood leukocytes automated count (number/volume) 7.3 10*3/uL 4.3-11.0 Blood erythrocytes automated count (number/volume) 3.18 10*6/uL 4.35-5.85 Venous blood hemoglobin measurement (mass/volume) 10.3 g/dL 13.3-17.7 Blood hematocrit (volume fraction) 32 % 40-54 Automated erythrocyte mean corpuscular volume 101 [foz_us] 80-99 Automated erythrocyte mean corpuscular h emoglobin (mass per erythrocyte) 32 pg 25-34 Automated erythrocyte mean corpuscular h emoglobin concentration measurement (mass/volume) 32 g/dL 32-36 Automated erythrocyte distribution width ratio 13. 7 % 10.0- 14.5 Automated blood platelet count (count/volume) 158 10*3/uL 130-400 Automated blood platelet mean volume measurement 11.4 [foz_us] 7.4-10.4 Automated blood neutrophils/100 leukocytes 80 % 42-75 Automated blood lymphocytes/100 leukocytes 13 % 12-44 Blood monocytes/100 leukocytes 6 % 0-12 Automated blood eosinophils/100 leukocytes 1 % 0-10 Automated blood basophils/100 leukocytes 0 % 0-10 Blood neutrophils automated count (number/volume) 5.9 10*3 1.8-7.8 Blood lymphocytes automated count (number/volume) 0.9 10*3 1.0-4.0 Blood monocytes automated count (number/volume) 0. 4 10*3 0.0-1.0 Automated eosinophil count 0.1 10*3/uL 0 .0-0.3 Automated blood basophil count (count/volume) 0.0 10*3/uL 0.0-0.1 Blood lactic acid measurement (moles/vol ume) - 04/07/20 17:20 Blood lactic acid measurement (moles/volume) 0.81 mmol/L 0.50-2.00 Comprehensive metabolic panel - 04/07/20 17:20 Serum or plasma sodium measurement (moles/volume) 137 mmol/L 135-145 Serum or plasma potassium measurement (moles/volume) 5.0 mmol/L 3.6-5.0 Serum or plasma chloride measurement (moles/volume) 92 mmol/L 98-107 Carbon dioxide 26 mmol/L 21-32 Serum or plasma anion gap determination (moles/volume) 19 mmol/L 5-14 Serum or plasma urea nitrogen measurement (mass/volume ) 39 mg/dL 7-18 Serum or plasma creatinine measurement (mass/volume) 9.06 mg/dL 0.60-1.30 Serum or plasma urea nitrogen/creatinine mass ratio 4 NRG Serum or plasma creatinine measurement w ith calculation of estimated glomerular filtration rate 7 NRG Serum or plasma glucose measurement (mass/volume) 87 mg/dL 70-105 Serum or plasma calcium measurement (mass/volume) 8.9 mg/dL 8.5-10.1 Serum or plasma total bilirubin measurement (mass/volu me) 0.2 mg/dL 0.1-1.0 Serum or plasma alkaline phosphatase ines surement (enzymatic activity/volume) 142 U/L 40-136 Serum or plasma aspartate aminotransfera se measurement (enzymatic activity/volume) 20 U/L 5-34 Serum or plasma alanine aminotransferase measurement (enzymatic activity/volume) 13 U/L 0-55 Serum or plasma protein measurement (mass/volume) 6.8 g/dL 6.4-8.2 Serum or plasma albumin measurement (mass/volume) 4.4 g/dL 3.2-4.5 CALCIUM CORRECTED 8.6 mg/dL 8.5-10.1 Encounters ACCT No. Visit Date/Time Discharge Status Pt. Type Provider Facility Loc./Unit Complaint [id number] 03/18/2020 12:39:26 23:59:59 CLS Outpatient [facility] Encounter for other preprocedural examination [id number] 03/18/2020 12:23:18 23:59:00 DIS Outpatient LILIAM BLANCO [facility] XRAY Encounter for other preprocedural examin ation [id number] 12/24/2019 15:01:15 23:59:59 CLS Outpatient [facility] End stage renal disease [id number] 12/24/2019 10:00:17 23:59:59 CLS Outpatient LILIAM BLANCO [facility] RTP [id number] 12/24/2019 15:24:43 23:59:00 DIS Outpatient LILIAM BLANCO [facility] CV US Other hypotension [id number] 05/08/2019 13:12:34 23:59:59 CLS Outpatient ROSA CAO [facility] 400 CL Encounter for other preprocedural examin ation [id number] 03/24/2020 14:30:06 Document Registration [id number] 12/26/2019 14:59:27 Document Registration [id number] 01/21/2019 13:01:48 Document Registration [id number] 07/30/2019 12:28:51 ACT Unknown [id number] 10/23/2019 13:30:00 10/23/2019 23:59:5 9 [facility] [id number] 07/17/2019 14:30:00 Document Registration [id number] 03/26/2019 14:00:00 Document Registration [id number] 08/09/2019 09:26:00 16:00:00 DIS Emergency KEISHA WALTER, LALO Britt [facility] FS CODE BLUE [id number] 08/07/2019 19:08:00 20:23:00 DIS Emergency SYDNI WALTER, SELENA Frey [facility] FS LT ANKLE INJ [id number] 05/29/2019 09:30:00 13:18:00 DIS Emergency REJI MAYER DO [facility] FS ABD PAIN [id number] 03/03/2019 20:48:00 23:45:00 DIS Emergency BAILEE WALTER, ANNABEL Ryan a [facility] FS CHEST PAIN/SOB/SYNCOPE [id number] 02/22/2019 16:46:00 20:26:00 DIS Emergency ERIK WALTER, MELVINA Mckay [facility] FS HYPOTENSION [id number] 02/21/2019 11:01:00 13:48:00 DIS Emergency DREW TYLER DO [facility] FS LT FOOT WOUND CHECK [id number] 08/02/2013 07:10:00 10:26:00 DIS Emergency [id number] 04/07/2020 16:48:[address] Emergency CLIFF WALTER, BRYANNA Britt [facility] FS SKIN INFECTION ON ARM [id number] 07/31/2019 23:20:15 ACT Document Registration
== END 2020-04-07 19:25 | disposition short-term general hospital (02) ==
LOC: EDUNIT# 16:47 → ER FS 16:48
DX: T82.7XXA Infection and inflammatory reaction due to other cardiac and vascular devices, implants and grafts, initial encounter (principal); L03.114 Cellulitis of left upper limb; N18.6 End stage renal disease; F41.9 Anxiety disorder, unspecified; Z99.2 Dependence on renal dialysis; Z88.2 Allergy status to sulfonamides; Z88.1 Allergy status to other antibiotic agents; Z88.8 Allergy status to other drugs, medicaments and biological substances; Z87.891 Personal history of nicotine dependence; Z94.0 Kidney transplant status
CPT/HCPCS: 36415; 80053; 83605; 85025; 87040; 96365; 96367; 96375; 96376

== ENCOUNTER 2020-05-13 17:09 | Emergency (ER) | payer MEDICARE ==
[~2020-05-13] VITALS: Ht 165.1 cm; Wt 65.6 kg
[~2020-05-13 17:09] MED LIST changes: +CINA60TA4; +CINA90TA4; +CITA40TA11; +MIDO10TA
[2020-05-13 17:14] VITALS: BP 106/66
[2020-05-13] MEDS ORDERED: HYDR-83 PO (17:30)
--- NOTE | 2020-05-13 17:30 | ED EENT ---
History of Present Illness General Chief Complaint: Dental Problems/Pain Stated Complaint: TOOTH ABSCESS PAIN Source: patient Exam Limitations: no limitations History of Present Illness Date Seen by Provider: May 13, 2020 Time Seen by Provider: 17:30 Initial Comments presents w dental pain for a few days. Recent dental work and was taking amoxicillin, today called Dentist and was switched to Clindamycin which he has not started yet. Has appt tomorrow w Dentist. Allergies and Home Medications Allergies Coded Allergies: sulfamethoxazole (Verified Allergy, Unknown, 02/21/19) trimethoprim (Verified Allergy, Unknown, 02/21/19) Uncoded Allergies: CLEAR EYES (Allergy, Unknown, eye burning, 02/21/19) Thymoglobulin (Adverse Reaction, Severe, low B/P and bradycardia, 08/02/13) Home Medications Hydrocodone/Acetaminophen 1 Each Tablet, 1 EACH PO Q4H Prescribed by: LEYLA MANE on 05/13/20 1730 Patient Home Medication List Home Medication List Reviewed: Yes Review of Systems Review of Systems Constitutional: No fever, No malaise, No weakness Eyes: No Symptoms Reported Ears: No Symptoms Reported Nose: no symptoms reported Mouth: see HPI; denies loose teeth; pain, swelling; denies bloody discharge, denies purulent discharge, denies serosanguinous discharge, denies previous injury Throat: no symptoms reported Respiratory: No cough, No short of breath Gastrointestinal: No abdominal pain, No nausea, No vomiting Skin: No change in color, No lesions, No lumps, No other Past Xvfmfln-Hjavho-Ceaier Hx Past Med/Social Hx: Reviewed Nursing Past Med/Soc Hx Patient Social History Former Smoker, Quit: Feb 11, 2011 2nd Hand Smoke Exposure: No Recent Foreign Travel: No Contact w/Someone Who Travel: No Recent Hopitalizations: No Seasonal Allergies Seasonal Allergies: No Past Medical History Surgeries: Yes (Peritoneal shunt placement laparoscopic, Graft in L arm) Dialysis, Kidney Transplant Respiratory: No Cardiac: Yes (Hx intermittant hypotension) Hypotension Neurological: No Genitourinary: Yes (Previous Kidney transplant rejection, 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 6.0oz. 65.682501ua; 24.00 BMI Method:Stated General Appearance: WD/WN, no apparent distress Mouth/Throat: pharynx normal, dental tenderness (left upper canine. no abscess. ); No excessive drooling, No mandibular swelling; maxillary swelling (minimal); No pharynx swelling, No pharynx tenderness, No tongue swollen, No tonsillar exudate, No tonsillar swelling, No uvula swelling, No voice changes Neck: non-tender, supple Progress/Results/Core Measures Results/Orders Vital Signs/I&O 05/13/20 17:14 Temp 36.7 Pulse 99 Resp 18 B/P (MAP) 106/66 (79) Pulse Ox 98 O2 Delivery Room Air Departure Impression Primary Impression: Dental abscess Disposition: 01 HOME, SELF-CARE Condition: Stable Departure-Patient Inst. Decision time for Depature: 17:30 Referrals: GABRIELA BOGGS MD (PCP/Family) Primary Care Physician Patient Instructions: Dental Pain (DC) Scripts Hydrocodone/Acetaminophen (Hydrocodone-Acetamin 5-325 mg) 1 Each Tablet 1 EACH PO Q4H for Abdominal Pain, #10 TAB Prov: LEYLA MANE DO 05/13/20 LEYLA MANE DO May 13, 2020 17:30
--- NOTE | 2020-05-13 17:45 | NUR ---
[facility] Pharmacist calls to notify patient received small script of Tylenol #[address] Martinez. Physician notified and will allow the fill of this script. Pharmacist heard patient not planning on using Tylenol#3 as not as effective.
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
== END 2020-05-13 17:30 | disposition home or self-care (01) ==
LOC: EDUNIT# 17:09 → ER FS 17:10
DX: K04.7 Periapical abscess without sinus (principal); Z94.0 Kidney transplant status; F41.9 Anxiety disorder, unspecified; L40.9 Psoriasis, unspecified; Z87.891 Personal history of nicotine dependence; I95.9 Hypotension, unspecified; E21.5 Disorder of parathyroid gland, unspecified; Z88.2 Allergy status to sulfonamides; Z88.8 Allergy status to other drugs, medicaments and biological substances
CPT/HCPCS: 99282

== ENCOUNTER → 2020-08-05 | Outpatient (CLI) | payer MEDICARE ==
[~2020-08-05] MED LIST changes: +ACHD5005 PO
--- NOTE | 2020-08-05 15:33 | Diagnostic Imaging Report ---
PROCEDURE: MRI right joint lower extremity without contrast. TECHNIQUE: Multiplanar, multisequence non contrast-enhanced MRI of the right lower extremity was accomplished. INDICATION: Chronic right knee pain. COMPARISON: None. FINDINGS: There is a large subchondral cystic lesion at the lateral tibial plateau which measures 1.4 x 1.5 x 1.5 cm in size, which extends to the articular surface with an overlying full-thickness cartilage cleft, most likely representing degenerative cyst-like change. There is also an ill-defined lesion in the proximal tibial metaphysis which measures approximately 3.5 cm craniocaudal, 2.6 cm AP, and 2.0 cm transverse. There is mild irregular central T2-bright signal. There is significant hypointensity on the gradient sequence. There does appear to be disruption of the overlying cortex (image 12 series 7). There also appears to be a heterogeneous mildly T2-bright lesion at the anterolateral femoral condyle which measures approximately 1.1 cm in diameter and also demonstrates gradient hypointensity. No acute fracture is seen in the right knee. Alignment appears normal. No joint effusion is seen. The articular cartilage in the patellofemoral compartment demonstrates no large full-thickness defects. The cartilage in the medial compartment appears intact. The lateral compartment cartilage demonstrates a small full-thickness defect at the lateral tibial plateau. No tear is seen in the medial or lateral menisci. The anterior and posterior cruciate ligaments are intact. The medial collateral ligament is intact. The lateral collateral ligamentous complex appears intact. The extensor mechanism is intact. The medial and lateral retinacula are intact. Soft tissues about the knee are otherwise unremarkable. IMPRESSION: 1. Irregular lesion in the proximal right tibia. This is indeterminate, and could represent a benign lesion such as a fibroxanthoma, but apparent disruption of the cortex is concerning. Radiography, likely CT, should be performed to evaluate the matrix and further evaluate the cortex. If the appearance remains concerning, a post-contrast MRI could be considered, versus tissue sampling. 2. Additional smaller lesion in the anterolateral femoral condyle with similar characteristics. 3. Large subchondral T2-bright lesion in the lateral tibial plateau is thought to represent a geode. Dictated by: Dictated on workstation # [id number]
== END ==
LOC: RAD 14:00
PROVIDERS: ATTEND Family Medicine
DX: M89.8X6 Other specified disorders of bone, lower leg (principal)
CPT/HCPCS: 73721

== ENCOUNTER 2021-03-09 17:18 | Outpatient (CLI) | payer MEDICARE ==
[~2021-03-09] VITALS: Ht 165.1 cm; Wt 68.0 kg
[~2021-03-09 17:18] MED LIST changes: -CIPR500T4 PO; +CIPR500T5 PO
[2021-03-09] MEDS ORDERED: TBO-FILGRASTIM 300 MCG/0.5 ML (GRANIX) SQ ONE (18:00)
[2021-03-09 18:40] VITALS: BP 119/61
[2021-03-09] MEDS ORDERED: TRAZODONE (18:59)
[2021-03-09] MEDS ORDERED: ACYCLOVIR (18:59)
[2021-03-09] MEDS ORDERED: PROGRAF (18:59)
[2021-03-09] MEDS ORDERED: CELEXA (18:59)
[2021-03-09] MEDS ORDERED: PREDNISONE (18:59)
[2021-03-09] MEDS ORDERED: MYFORTIC (18:59)
[2021-03-09] MEDS ORDERED: CETI10TA49 PO (18:59)
[2021-03-09] MEDS ORDERED: BACTRIM (18:59)
== END 2021-03-09 18:40 | disposition home or self-care (01) ==
LOC: 4THo 17:18 → SDC 17:18 → 4THo 18:40
PROVIDERS: ATTEND Internal Medicine Nephrology
DX: D72.819 Decreased white blood cell count, unspecified (principal)
CPT/HCPCS: 96372; J1447

== ENCOUNTER 2021-04-02 12:55 | Outpatient (RCR) | payer MEDICARE ==
[~2021-04-02 12:55] MED LIST changes: +ACYCLOVIR; +BACTRIM; +CELEXA; +CETI10TA49 PO; +MYFORTIC; +PREDNISONE; +PROGRAF; +TRAZODONE
[2021-04-03] MEDS ORDERED: TBO-FILGRASTIM 300 MCG/0.5 ML (GRANIX) SQ ONE (10:45)
== END 2021-07-01 | disposition home or self-care (01) ==
LOC: SDC 12:55
PROVIDERS: ATTEND Internal Medicine Nephrology
DX: D72.819 Decreased white blood cell count, unspecified (principal)
CPT/HCPCS: 96372; J1447

== ENCOUNTER 2021-05-14 14:46 | Emergency (ER) | payer MEDICARE ==
[2021-05-14 14:53] VITALS: BP 131/80
--- NOTE | 2021-05-14 15:04 | ED Upper Extremity ---
General Chief Complaint: Neurological Problems Stated Complaint: LT ARM NUMBNESS History of Present Illness Date Seen by Provider: May 14, 2021 Time Seen by Provider: 14:50 Initial Comments 35-year-old male presents with some numbness in his left arm. Mainly in the elbow down. Does not seem to affect fingers any differently. Gets worse if she tells us arm straight out to the side. Patient has a kidney transplant and a dialysis fistula in his left arm and just want to have it evaluated. Symptoms have improved somewhat. Does once again seem more positional when he describes it and can somewhat be reproduced in the ER with arm movement. He denies any shortness of breath numbness tingling. He does have the labs couple days ago as he has an appointment with his transplant team next week. No other systemic complaints. Allergies and Home Medications Allergies Uncoded Allergies: CLEAR EYES (Allergy, Unknown, eye burning, 02/21/19) Thymoglobulin (Adverse Reaction, Severe, low B/P and bradycardia, 08/02/13) Home Medications Cetirizine HCl 10 Mg Tablet, 10 MG PO DAILY, (Reported) Patient Home Medication List Home Medication List Reviewed: Yes Review of Systems Constitutional: No chills, No fever EENTM: no symptoms reported Respiratory: no symptoms reported Cardiovascular: no symptoms reported Gastrointestinal: no symptoms reported Genitourinary: no symptoms reported Musculoskeletal: see HPI Skin: see HPI Psychiatric/Neurological: See HPI Past Arcjrdz-Avxyrd-Cfedzf Hx Patient Social History Tobacco Use?: No Substance use?: No Alcohol Use?: No Pt feels they are or have been: No Immunizations Up To Date Tetanus Booster (TDap): Less than 5yrs Seasonal Allergies Seasonal Allergies: No Past Medical History Surgeries: Yes (Peritoneal shunt placement laparoscopic, Graft in L arm) Dialysis, Kidney Transplant Respiratory: No Cardiac: Yes (Hx intermittant hypotension) Hypotension Neurological: No Genitourinary: Yes (Previous Kidney transplant rejection, dialysis start age 16 initially) Renal Failure, Dialysis Gastrointestinal: No Musculoskeletal: No Endocrine: No Parathyroid Disease HEENT: No Cancer: No Psychosocial: Yes Anxiety Integumentary: Yes (Numerous tattoos) Psoriasis Blood Disorders: No Physical Exam Vital Signs Capillary Refill : Height, Weight, BMI Height: 5'5.00" Weight: 145lbs. 6.0oz. 65.331372dv; 24.00 BMI Method:Stated General Appearance: WD/WN, no apparent distress HEENT: PERRL/EOMI, pharynx normal Neck: full range of motion, supple, normal inspection; No limited range of motion, No lymphadenopathy (R), No lymphadenopathy (L) Cardiovascular: normal peripheral pulses, regular rate, rhythm Respiratory: lungs clear, normal breath sounds, no accessory muscle use Gastrointestinal: soft Shoulder: normal inspection, no evidence of injury, normal ROM Elbow/Forearm: non-tender, no evidence of injury, normal ROM Wrist: Yes normal inspection, Yes non-tender, Yes no evidence of injury Hand: non-tender, no evidence of injury, normal ROM Neurologic/Tendon: other (Patient with mild paresthesia in a left arm that worsens if I hold this left arm and he abduction at 90 degrees and improves was taken out abduction.) Neurologic/Psychiatric: alert, normal mood/affect, oriented x 3; No motor weakness Skin: tattoos/piercings (Numerous) Progress/Results/Core Measures Progress Progress Note : Progress Note Patient symptoms seem very consistent with a plexus type paresthesia. Difficult to determine if is coming from the neck the elbow or the shoulder. Discussed with him need to follow-up with his primary care provider for further evaluation and testing on outpatient basis. He should return to the ER as needed. Patient has brisk cap refill, good radial pulse, no swelling or other signs that would indicate need for emergent ultrasound to check for blood clot at this time. Patient stable and discharged Departure Impression Primary Impression: Paresthesia of left arm Disposition: 01 HOME, SELF-CARE Condition: Stable Departure-Patient Inst. Referrals: GABRIELA BOGGS MD (PCP/Family) Primary Care Physician Patient Instructions: Paresthesia (DC) Add. Discharge Instructions: Follow-up with your primary care provider next week. Return to the ER with any concerns or if symptoms become significantly worse. All discharge instructions reviewed with patient and/or family. Voiced understanding. DREW TYLER DO May 14, 2021 15:04
== END 2021-05-14 15:07 | disposition home or self-care (01) ==
LOC: EDUNIT# 14:46 → ER FS 14:47
DX: R20.2 Paresthesia of skin (principal); I95.9 Hypotension, unspecified
CPT/HCPCS: 99283

== ENCOUNTER 2022-06-04 22:16 | Emergency (ER) | payer MEDICARE, OTHER ==
[~2022-06-04] VITALS: Ht 165.1 cm; Wt 69.5 kg
[~2022-06-04 22:16] MED LIST changes: -CITA40TA11; +CITA40TA13
[2022-06-04] MEDS ORDERED: TETANUS,DIPTH,PERTUSS P/F (BOOSTRIX) 0.5 ML VIAL IM ONE (23:00)
[2022-06-04] MEDS ORDERED: fentaNYL INJ 100 MCG/2 ML AMP IM ONE (23:00)
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
[2022-06-05] MEDS ORDERED: fentaNYL INJ 100 MCG/2 ML AMP IM ONE (01:15)
[2022-06-05 01:55] VITALS: BP 113/82
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
== END 2022-06-05 01:55 | disposition home or self-care (01) ==
LOC: EDUNIT# 22:16 → ER FS 22:22
DX: S22.41XA Multiple fractures of ribs, right side, initial encounter for closed fracture (principal); S60.211A Contusion of right wrist, initial encounter; S60.221A Contusion of right hand, initial encounter; S80.02XA Contusion of left knee, initial encounter; S50.01XA Contusion of right elbow, initial encounter; N18.9 Chronic kidney disease, unspecified; Z99.2 Dependence on renal dialysis; Z94.0 Kidney transplant status; Z23 Encounter for immunization; Z28.310 Unvaccinated for COVID-19; V49.88XA Car occupant (driver) (passenger) injured in other specified transport accidents, initial encounter
CPT/HCPCS: 71250; 73130; 73562; 74176; 90715